=== PATIENT | female | born 1970 | race Caucasian/White ===

== ENCOUNTER 2017-08-25 00:06 | Emergency (ER) | payer OTHER ==
[2017-08-25] MEDS ORDERED: SODIUM CHLORIDE 0.9% 500 ML IV STA (00:41)
--- NOTE | 2017-08-25 00:46 | ED ---
Abdominal Pain HPI - General Chief Complaint: Abdominal Pain Stated Complaint: Abdominal Pain, Back Pain Time Seen by Provider: 08/25/17 00:22 Source: patient Mode of arrival: ambulatory Limitations: no limitations - History of Present Illness Initial Comments: 47-year-old female patient presents to emergency department today for complaints of lower abdominal pain and low back pain. Patient states that she has had this pain for the last day and a half. States it is worsened over the last 8 hours. Patient states that the pain was quite severe. Patient states that she thought it was gas that she did take Gas-X and Pepto-Bismol. States this has not helped her symptoms. She denies any nausea or vomiting with this. Denies any constipation, diarrhea, hematochezia, or melena. Denies any hematuria, dysuria, urinary frequency, urinary urgency. She denies any abnormal vaginal bleeding or discharge. Last period was 2 weeks ago. Patient denies any recent rash, fever, chills, shortness breath, chest pain, numbness, tingling, dizziness, weakness, headache, visual changes, or any other complaints. - Related Data Home Medications Medication Instructions Recorded Confirmed Escitalopram [Lexapro] 10 mg PO DAILY 08/25/17 08/25/17 Levothyroxine Sodium [Synthroid] 112 mcg PO DAILY 08/25/17 08/25/17 Previous Rx's Medication Instructions Recorded Hydrocodone/Acetaminophen [[place] 1 tab PO Q6HR PRN #12 tab 08/25/17 5-325] Ibuprofen [Motrin] 600 mg PO Q8HR PRN #30 tab 08/25/17 Allergies Allergy/AdvReac Type Severity Reaction Status Date / Time Penicillins Allergy Unknown Verified 08/25/17 00:14 Childhood Review of Systems ROS Statement: Those systems with pertinent positive or pertinent negative responses have been documented in the HPI. ROS Other: All systems not noted in ROS Statement are negative. Past Medical History Past Medical History: Thyroid Disorder History of Any Multi-Drug Resistant Organisms: None Reported Past Surgical History: No Surgical Hx Reported Past Psychological History: Depression Smoking Status: Current every day smoker Past Alcohol Use History: None Reported Past Drug Use History: None Reported General Exam Limitations: no limitations General appearance: alert, in no apparent distress, other (This is a well- developed, well-nourished adult female patient in no acute distress. Vital signs upon presentation are temperature 98.9F, pulse 88, respirations 20, blood pressure 131/72, pulse ox 99% on room air.) Eye exam: Present: normal appearance, PERRL, EOMI. Absent: scleral icterus, conjunctival injection, periorbital swelling ENT exam: Present: normal exam, normal oropharynx, mucous membranes moist Respiratory exam: Present: normal lung sounds bilaterally. Absent: respiratory distress, wheezes, rales, rhonchi, stridor Cardiovascular Exam: Present: regular rate, normal rhythm, normal heart sounds. Absent: systolic murmur, diastolic murmur, rubs, gallop, clicks GI/Abdominal exam: Present: soft, tenderness (Mild right lower quadrant tenderness), normal bowel sounds. Absent: distended, guarding, rebound, rigid Neurological exam: Present: alert, oriented X3, CN II-XII intact Psychiatric exam: Present: normal affect, normal mood Skin exam: Present: warm, dry, intact, normal color. Absent: rash Course Vital Signs 08/25/17 08/25/17 00:11 02:00 Temperature 98.9 F 98.1 F Pulse Rate 88 70 Respiratory 20 19 Rate Blood Pressure 131/72 143/67 O2 Sat by Pulse 99 98 Oximetry Medical Decision Making - Medical Decision Making 47-year-old male patient presented to the emergency department today for evaluation of lower abdominal pain or low back pain. Physical examination revealed some mild left-sided and right-sided abdominal tenderness. Labs reviewed and showed hemoglobin of 10. X-ray was obtained and showed no acute intra-abdominal process. CT of the abdomen and pelvis was obtained and did show a left uterine fibroid and a left ovarian cyst. Did discuss findings with the patient, did discuss these could be causing her pain. She is instructed to follow-up with [facility] for recheck of systems possible. Return parameters discussed in detail. She verbalizes understanding and agrees with this plan. - Lab Data Result diagrams: 08/25/17 00:56 08/25/17 00:56 Lab Results 08/25/17 08/25/17 08/25/17 Range/Units 00:20 00:20 00:56 WBC (3.8-10.6) k/uL RBC (3.80-5.40) m/uL Hgb (11.4-16.0) gm/dL Hct (34.0-46.0) % MCV (80.0-100.0) fL MCH (25.0-35.0) pg MCHC (31.0-37.0) g/dL RDW (11.5-15.5) % Plt Count (150-450) k/uL Neutrophils % % Lymphocytes % % Monocytes % % Eosinophils % % Basophils % % Neutrophils # (1.3-7.7) k/uL Lymphocytes # (1.0-4.8) k/uL Monocytes # (0-1.0) k/uL Eosinophils # (0-0.7) k/uL Basophils # (0-0.2) k/uL Hypochromasia Poikilocytosis Anisocytosis Microcytosis Sodium 143 (137-145) mmol/L Potassium 4.2 (3.5-5.1) mmol/L Chloride 108 H (98-107) mmol/L Carbon Dioxide 24 (22-30) mmol/L Anion Gap 11 mmol/L BUN 9 (7-17) mg/dL Creatinine 0.60 (0.52-1.04) mg/dL Est GFR (CKD-EPI)AfAm >90 (>60 ml/min/1.73 sqM) Est GFR (CKD-EPI)NonAf >90 (>60 ml/min/1.73 sqM) Glucose 100 H (74-99) mg/dL Calcium 9.5 (8.4-10.2) mg/dL Total Bilirubin 0.3 (0.2-1.3) mg/dL AST 16 (14-36) U/L ALT 9 (9-52) U/L Alkaline Phosphatase 73 (38-126) U/L Total Protein 6.7 (6.3-8.2) g/dL Albumin 4.0 (3.5-5.0) g/dL Amylase 50 (30-110) U/L Lipase 74 (23-300) U/L Urine Color Light Yellow Urine Appearance Clear (Clear) Urine pH 6.5 (5.0-8.0) Ur Specific [place] 1.012 (1.001-1.035) Urine Protein Negative (Negative) Urine Glucose (UA) Negative (Negative) Urine Ketones Negative (Negative) Urine Blood Negative (Negative) Urine Nitrite Negative (Negative) Urine Bilirubin Negative (Negative) Urine Urobilinogen <2.0 (<2.0) mg/dL Ur Leukocyte Esterase Negative (Negative) Urine HCG, Qual Not Detected (Not Detectd) 08/25/17 Range/Units 00:56 WBC 10.4 (3.8-10.6) k/uL RBC 5.00 (3.80-5.40) m/uL Hgb 10.0 L (11.4-16.0) gm/dL Hct 34.1 (34.0-46.0) % MCV 68.1 L (80.0-100.0) fL MCH 20.0 L (25.0-35.0) pg MCHC 29.4 L (31.0-37.0) g/dL RDW 17.8 H (11.5-15.5) % Plt Count 242 (150-450) k/uL Neutrophils % 69 % Lymphocytes % 21 % Monocytes % 7 % Eosinophils % 2 % Basophils % 1 % Neutrophils # 7.1 (1.3-7.7) k/uL Lymphocytes # 2.1 (1.0-4.8) k/uL Monocytes # 0.7 (0-1.0) k/uL Eosinophils # 0.2 (0-0.7) k/uL Basophils # 0.1 (0-0.2) k/uL Hypochromasia Marked Poikilocytosis Slight Anisocytosis Slight Microcytosis Marked Sodium (137-145) mmol/L Potassium (3.5-5.1) mmol/L Chloride (98-107) mmol/L Carbon Dioxide (22-30) mmol/L Anion Gap mmol/L BUN (7-17) mg/dL Creatinine (0.52-1.04) mg/dL Est GFR (CKD-EPI)AfAm (>60 ml/min/1.73 sqM) Est GFR (CKD-EPI)NonAf (>60 ml/min/1.73 sqM) Glucose (74-99) mg/dL Calcium (8.4-10.2) mg/dL Total Bilirubin (0.2-1.3) mg/dL AST (14-36) U/L ALT (9-52) U/L Alkaline Phosphatase (38-126) U/L Total Protein (6.3-8.2) g/dL Albumin (3.5-5.0) g/dL Amylase (30-110) U/L Lipase (23-300) U/L Urine Color Urine Appearance (Clear) Urine pH (5.0-8.0) Ur Specific Graham (1.001-1.035) Urine Protein (Negative) Urine Glucose (UA) (Negative) Urine Ketones (Negative) Urine Blood (Negative) Urine Nitrite (Negative) Urine Bilirubin (Negative) Urine Urobilinogen (<2.0) mg/dL Ur Leukocyte Esterase (Negative) Urine HCG, Qual (Not Detectd) - Radiology Data Radiology results: report reviewed, image reviewed Two-view x-ray of the abdomen shows bowel gas pattern is normal. There is no sign of intestinal obstruction or pneumoperitoneum. Fecal pattern is normal. There are no pathologic calcifications over the kidneys. Impression by Dr. Jones shows nonacute abdomen. CT abdomen and pelvis with contrast was obtained. Report was reviewed in its entirety. Impression by Dr. Jones shows enlarged uterus with exophytic left sided uterine fibroid. Left ovarian cyst. Disposition Clinical Impression: Abdominal pain, Uterine fibroid, Ovarian cyst Disposition: HOME SELF-CARE Condition: Good Instructions: Ovarian Cyst (ED), Uterine Fibroids (ED), Abdominal Pain (ED) Additional Instructions: Take medications as directed. Follow-up with [facility] as soon as possible for recheck. Return here immediately for any new, worsening, or concerning symptoms. Prescriptions: Hydrocodone/Acetaminophen [[place] 5-325] 1 tab PO Q6HR PRN #12 tab PRN Reason: Pain Ibuprofen [Motrin] 600 mg PO Q8HR PRN #30 tab PRN Reason: Pain Is patient prescribed a controlled substance at d/c from ED?: Yes If prescribed controlled substance>3 days was MAPS reviewed?: No When asked, does pt state using other controlled substances?: No Referrals: [facility],Clinic [Primary Care Provider] - 1-2 days Nickolas Lindsay MD [STAFF PHYSICIAN] - 1-2 days Time of Disposition: 03:05
[2017-08-25 01:15] LABS: Anisocytosis Slight; Basophils # (A) 0.1 k/uL (0-0.2); Basophils % (A) 1 %; Eosinophils # (A) 0.2 k/uL (0-0.7); Eosinophils % (A) 2 %; HCT 34.1 % (34.0-46.0); Hypochromasia Marked; Lymphocytes # (A) 2.1 k/uL (1.0-4.8); Lymphocytes % (A) 21 %; MCHC 29.4 g/dL (31.0-37.0); MCV 68.1 fL (80.0-100.0); Mean Platelet Volume 8.5; Microcytosis Marked; Monocytes # (A) 0.7 k/uL (0-1.0); Monocytes % (A) 7 %; Neutrophils # (A) 7.1 k/uL (1.3-7.7); Neutrophils % (A) 69 %; Platelet Count 242 k/uL (150-450); Poikilocytosis Slight; RDW 17.8 % (11.5-15.5); WBC 10.4 k/uL (3.8-10.6)
[2017-08-25 01:17] LABS: Appearance,Urine Clear (Clear); Bilirubin,Urine Negative (Negative); Blood,Urine Negative (Negative); Color,Urine Light Yellow; Glucose,Urine (UA) Negative (Negative); Ketones,Urine Negative (Negative); Leukocyte Esterase,Urine Negative (Negative); Nitrite,Urine Negative (Negative); PH, Urine 6.5 (5.0-8.0); Protein,Urine Negative (Negative); Specific Gravity,Urine 1.012 (1.001-1.035); Urobilinogen,Urine <2.0 mg/dL (<2.0)
[2017-08-25 01:26] LABS: ALT 9 U/L (9-52); AST 16 U/L (14-36); Alkaline Phosphatase 73 U/L (38-126); Amylase 50 U/L (30-110); Anion Gap 11 mmol/L; Blood Urea Nitrogen 9 mg/dL (7-17); Calcium 9.5 mg/dL (8.4-10.2); Carbon Dioxide 24 mmol/L (22-30); Chloride 108 mmol/L (98-107); Glucose 100 mg/dL (74-99); Lipase 74 U/L (23-300); Potassium 4.2 mmol/L (3.5-5.1); Sodium 143 mmol/L (137-145); Total Bilirubin 0.3 mg/dL (0.2-1.3); Total Protein 6.7 g/dL (6.3-8.2)
--- NOTE | 2017-08-25 01:40 | XR ---
EXAMINATION TYPE: XR KUB DATE OF EXAM: 08/25/2017 COMPARISON: NONE HISTORY: Abdominal pain TECHNIQUE: 2 views FINDINGS: Bowel gas pattern is normal. There is no sign of intestinal obstruction or pneumoperitoneum . Fecal pattern is normal. There are no pathologic calcifications over the kidneys. IMPRESSION: Nonacute abdomen.
[2017-08-25] MEDS ORDERED: RX INFO: IV CONTRAST WAS GIVEN 1 EACH MISC MISCELLANE PRN (01:49)
[2017-08-25 02:33] VITALS: BP 143/67; PULSE 70; RESP 19; TEMP 98.1
--- NOTE | 2017-08-25 02:40 | CT ---
EXAMINATION TYPE: CT abdomen pelvis w con DATE OF EXAM: 08/25/2017 COMPARISON: NONE HISTORY: Abdominal pain CT DLP: mGycm Automated exposure control for dose reduction was used. TECHNIQUE: Helical acquisition of images was performed from the lung bases through the pelvis. CONTRAST: The contrast was Isovue 100 mL. FINDINGS: Lung bases are clear. There is no pleural effusion. Heart size is top normal. There is no pericardial effusion. Liver spleen pancreas gallbladder appear normal. Bile ducts are not dilated. There is no adrenal mass . Kidneys show satisfactory contrast opacification. There is no hydronephrosis. Uterus is enlarged. T here is an apparent exophytic fibroid on the left side of the uterus. This measures 5 cm in diameter. There is a 4 cm cyst on the left ovary. There is no free fluid in the pelvis. Bladder distends katty hly. There is no retroperitoneal adenopathy. Normal appendix. No sign of acute abdomen and pelvis. Appendix appears normal. I see no intestinal wall thickening. There are no dilated loops. The bony st ructures are intact. IMPRESSION: ENLARGED UTERUS WITH EXOPHYTIC LEFT-SIDED UTERINE FIBROID. LEFT OVARIAN CYST.
== END 2017-08-25 03:29 | disposition home or self-care (01) ==
LOC: EC 00:06
DX: D25.9 Leiomyoma of uterus, unspecified (principal); N83.202 Unspecified ovarian cyst, left side; F17.200 Nicotine dependence, unspecified, uncomplicated; E07.9 Disorder of thyroid, unspecified; F32.9 Major depressive disorder, single episode, unspecified; Z79.899 Other long term (current) drug therapy; Z88.0 Allergy status to penicillin
CPT/HCPCS: 36415; 80053; 82150; 83690; 85025; 81003; 81025; 74018; 74177; 99284; Q9967

== ENCOUNTER 2017-08-25 20:34 | Emergency (ER) | payer OTHER ==
[2017-08-25 20:56] VITALS: RESP 18
[2017-08-25] MEDS ORDERED: HYDROcodone/APAP 7.5-325MG 1 EACH TAB PO ONE (21:43)
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
--- NOTE | 2017-08-26 00:29 | US ---
EXAM: US Pelvis Complete, Transabdominal CLINICAL HISTORY: ITS.REASON US Reason: Pain TECHNIQUE: Real-time transabdominal pelvic ultrasound (complete) with image documentation. COMPARISON: No relevant prior studies available. FINDINGS: Limited as patient refused transvaginal exam. Anteverted uterus measuring 14.2 x 9.3 x 9.8 cm. Uterus is enlarged and lobulated. 3 discrete heterogeneous intramural masses were identified in the uterine body consistent with leiomyomas. A leiomyoma in the anterior uterine body measures 6.2 x 4.1 x 4.9 cm. A leiomyoma in the posterior uterine body is 5.1 x 3.9 x 4.8 cm. A third intramural posterior body leiomyoma is 6.8 x 5.7 x 6.0 cm. The endometrial stripe is 3 mm in thickness with normal appearance. Right ovary was not visualized. Left ovary is 5.9 x 4.6 x 4.5 cm with normal appearance and normal vascularity by Doppler. IMPRESSION: Multilobulated enlarged uterus with multiple leiomyomas as described above. Right ovary was not visualized.
[2017-08-26] MEDS ORDERED: ACET/COD 300 MG/30 MG STARTER PACK 6 TAB BTL PO STA (00:41)
[2017-08-26 00:54] VITALS: BP 133/60; PULSE 83; TEMP 98.8
== END 2017-08-26 00:54 | disposition home or self-care (01) ==
LOC: EC 20:34
DX: D25.9 Leiomyoma of uterus, unspecified (principal); N83.202 Unspecified ovarian cyst, left side; E07.9 Disorder of thyroid, unspecified; F32.9 Major depressive disorder, single episode, unspecified; F17.200 Nicotine dependence, unspecified, uncomplicated; Z79.899 Other long term (current) drug therapy; Z88.0 Allergy status to penicillin
CPT/HCPCS: 76856; 93976; 99284

== ENCOUNTER 2017-09-09 09:00 | Inpatient (IN) | payer OTHER ==
[2017-09-09] MEDS ORDERED: SODIUM CHLORIDE 0.9% 1,000 ML IV STA ×2 (09:02)
[2017-09-09] MEDS ORDERED: SODIUM CHLORIDE 0.9% 500 ML IV STA (09:02)
[2017-09-09 09:42] LABS: ALT 24 U/L (9-52); AST 16 U/L (14-36); Albumin 3.4 g/dL (3.5-5.0); Alkaline Phosphatase 67 U/L (38-126); Anion Gap 11 mmol/L; Blood Urea Nitrogen 11 mg/dL (7-17); Calcium 8.7 mg/dL (8.4-10.2); Carbon Dioxide 21 mmol/L (22-30); Chloride 109 mmol/L (98-107); Glucose 132 mg/dL (74-99); Magnesium 1.7 mg/dL (1.6-2.3); Phosphorus 3.4 mg/dL (2.5-4.5); Potassium 3.8 mmol/L (3.5-5.1); Sodium 141 mmol/L (137-145); Total Bilirubin 0.7 mg/dL (0.2-1.3); Total Protein 5.8 g/dL (6.3-8.2)
[2017-09-09] MEDS ORDERED: RX INFO: IV CONTRAST WAS GIVEN 1 EACH MISC MISCELLANE PRN (09:43)
[2017-09-09] MEDS ORDERED: ACETAMINOPHEN IV (For NPO) 1,000 MG in EMPTY BAG 1 BAG IVPB ONE (09:45)
--- NOTE | 2017-09-09 09:49 | ED ---
General Adult HPI - General Chief complaint: Abdominal Pain Stated complaint: Abd Pain Time Seen by Provider: 09/09/17 09:01 Source: EMS, RN notes reviewed, old records reviewed Mode of arrival: EMS Limitations: no limitations - History of Present Illness Initial comments: This is a 39-year-old female the ER for evaluation. Patient was essay for evaluation regarding about pain severe abdominal pain and left-sided shoulder pain and right-sided shoulder pain 3 days ago. Patient does have recent diagnosis of uterine fibroids which were causing her also extreme pain. Patient states she is in severe pain is weak lightheaded and dizzy. Patient states she is on her period but not any heavier or more bleeding than normal. Patient just focused on how much pain - Related Data Home Medications Medication Instructions Recorded Confirmed Escitalopram [Lexapro] 10 mg PO DAILY 08/25/17 08/25/17 Levothyroxine Sodium [Synthroid] 112 mcg PO DAILY 08/25/17 08/25/17 Previous Rx's Medication Instructions Recorded Hydrocodone/Acetaminophen [[place] 1 tab PO Q6HR PRN #12 tab 08/25/17 5-325] Ibuprofen [Motrin] 600 mg PO Q8HR PRN #30 tab 08/25/17 Allergies Allergy/AdvReac Type Severity Reaction Status Date / Time Penicillins Allergy Unknown Verified 08/25/17 20:56 Childhood Review of Systems ROS Statement: Those systems with pertinent positive or pertinent negative responses have been documented in the HPI. ROS Other: All systems not noted in ROS Statement are negative. Past Medical History Past Medical History: Thyroid Disorder Additional Past Medical History / Comment(s): ovarian cyst and mass on uterus () History of Any Multi-Drug Resistant Organisms: None Reported Past Surgical History: No Surgical Hx Reported Past Psychological History: Depression Smoking Status: Current every day smoker Past Alcohol Use History: None Reported Past Drug Use History: None Reported General Exam Limitations: no limitations General appearance: alert, in no apparent distress Head exam: Present: atraumatic, normocephalic, normal inspection Eye exam: Present: normal appearance, PERRL, EOMI. Absent: scleral icterus, conjunctival injection, periorbital swelling ENT exam: Present: normal exam, mucous membranes moist Neck exam: Present: normal inspection. Absent: tenderness, meningismus, lymphadenopathy Respiratory exam: Present: normal lung sounds bilaterally. Absent: respiratory distress, wheezes, rales, rhonchi, stridor Cardiovascular Exam: Present: regular rate, normal rhythm, normal heart sounds. Absent: systolic murmur, diastolic murmur, rubs, gallop, clicks GI/Abdominal exam: Present: soft, normal bowel sounds. Absent: distended, tenderness, guarding, rebound, rigid Extremities exam: Present: normal inspection, full ROM, normal capillary refill. Absent: tenderness, pedal edema, joint swelling, calf tenderness Back exam: Present: normal inspection Neurological exam: Present: alert, oriented X3, CN II-XII intact Psychiatric exam: Present: normal affect, normal mood Skin exam: Present: warm, dry, intact, normal color. Absent: rash Course Vital Signs 09/09/17 09/09/17 09/09/17 09:04 09:15 09:35 Temperature 98.0 F Pulse Rate 86 84 73 Respiratory 18 18 16 Rate Blood Pressure 97/53 107/46 95/46 O2 Sat by Pulse 97 98 98 Oximetry - Reevaluation(s) Reevaluation #1: 09/09/17 09:48 Patient's blood pressure is low currently, cannot get pain meds currently. We' ll give her IV hydration Reevaluation #2: 09/09/17 11:35 Patient will be immediately transfused 2 units O- blood secondary to symptomatically acute bleed with anemia and hypotension Reevaluation #3: 09/09/17 11:35 Dr. Lopez for surgery is called to evaluate patient EKG Findings - EKG Comments: EKG Findings:: EKG shows normal sinus rhythm rate of 72, KS 140, QRS 78, QTC 424 Medical Decision Making - Medical Decision Making 39 female the ER for evaluation presents with abdominal pain, new onset severe abdominal pain, patient with CT findings of spontaneous chronic rupture, patient is transfused and will be admitted to the ICU for surgical evaluation - Lab Data Result diagrams: 09/09/17 09:20 09/09/17 09:20 Lab Results 09/09/17 09/09/17 09/09/17 Range/Units 09:20 09:20 09:20 WBC 17.0 H (3.8-10.6) k/uL RBC 4.17 (3.80-5.40) m/uL Hgb 8.5 L D (11.4-16.0) gm/dL Hct 29.1 L (34.0-46.0) % MCV 69.8 L (80.0-100.0) fL MCH 20.5 L (25.0-35.0) pg MCHC 29.3 L (31.0-37.0) g/dL RDW 18.0 H (11.5-15.5) % Plt Count 280 (150-450) k/uL Neutrophils % 90 % Lymphocytes % 4 % Monocytes % 4 % Eosinophils % 0 % Basophils % 0 % Neutrophils # 15.3 H (1.3-7.7) k/uL Lymphocytes # 0.7 L (1.0-4.8) k/uL Monocytes # 0.7 (0-1.0) k/uL Eosinophils # 0.1 (0-0.7) k/uL Basophils # 0.0 (0-0.2) k/uL Hypochromasia Marked Poikilocytosis Slight Anisocytosis Slight Microcytosis Marked PT (9.0-12.0) sec INR (<1.2) APTT (22.0-30.0) sec Sodium 141 (137-145) mmol/L Potassium 3.8 (3.5-5.1) mmol/L Chloride 109 H (98-107) mmol/L Carbon Dioxide 21 L (22-30) mmol/L Anion Gap 11 mmol/L BUN 11 (7-17) mg/dL Creatinine 0.65 (0.52-1.04) mg/dL Est GFR (CKD-EPI)AfAm >90 (>60 ml/min/1.73 sqM) Est GFR (CKD-EPI)NonAf >90 (>60 ml/min/1.73 sqM) Glucose 132 H (74-99) mg/dL Plasma Lactic Acid Tanner (0.7-2.0) mmol/L Calcium 8.7 (8.4-10.2) mg/dL Phosphorus 3.4 (2.5-4.5) mg/dL Magnesium 1.7 (1.6-2.3) mg/dL Total Bilirubin 0.7 (0.2-1.3) mg/dL AST 16 (14-36) U/L ALT 24 (9-52) U/L Alkaline Phosphatase 67 (38-126) U/L Total Creatine Kinase 29 L (30-135) U/L CK-MB (CK-2) <0.2 (0.0-2.4) ng/mL CK-MB (CK-2) Rel Index Troponin I <0.012 (0.000-0.034) ng/mL Total Protein 5.8 L (6.3-8.2) g/dL Albumin 3.4 L (3.5-5.0) g/dL 09/09/17 09/09/17 Range/Units 09:20 09:20 WBC (3.8-10.6) k/uL RBC (3.80-5.40) m/uL Hgb (11.4-16.0) gm/dL Hct (34.0-46.0) % MCV (80.0-100.0) fL MCH (25.0-35.0) pg MCHC (31.0-37.0) g/dL RDW (11.5-15.5) % Plt Count (150-450) k/uL Neutrophils % % Lymphocytes % % Monocytes % % Eosinophils % % Basophils % % Neutrophils # (1.3-7.7) k/uL Lymphocytes # (1.0-4.8) k/uL Monocytes # (0-1.0) k/uL Eosinophils # (0-0.7) k/uL Basophils # (0-0.2) k/uL Hypochromasia Poikilocytosis Anisocytosis Microcytosis PT 10.6 (9.0-12.0) sec INR 1.1 (<1.2) APTT 23.0 (22.0-30.0) sec Sodium (137-145) mmol/L Potassium (3.5-5.1) mmol/L Chloride (98-107) mmol/L Carbon Dioxide (22-30) mmol/L Anion Gap mmol/L BUN (7-17) mg/dL Creatinine (0.52-1.04) mg/dL Est GFR (CKD-EPI)AfAm (>60 ml/min/1.73 sqM) Est GFR (CKD-EPI)NonAf (>60 ml/min/1.73 sqM) Glucose (74-99) mg/dL Plasma Lactic Acid Tanner 1.2 (0.7-2.0) mmol/L Calcium (8.4-10.2) mg/dL Phosphorus (2.5-4.5) mg/dL Magnesium (1.6-2.3) mg/dL Total Bilirubin (0.2-1.3) mg/dL AST (14-36) U/L ALT (9-52) U/L Alkaline Phosphatase (38-126) U/L Total Creatine Kinase (30-135) U/L CK-MB (CK-2) (0.0-2.4) ng/mL CK-MB (CK-2) Rel Index Troponin I (0.000-0.034) ng/mL Total Protein (6.3-8.2) g/dL Albumin (3.5-5.0) g/dL - Radiology Data Radiology results: report reviewed (CT chest CT abdomen and pelvis negative for acute disease), image reviewed Critical Care Time Critical Care Time: Yes Total Critical Care Time: 31 Disposition Clinical Impression: Splenic rupture, Anemia Disposition: ADMITTED IP TO THIS [facility] Condition: Serious Referrals: Benjamin Carrasquillo DO [Primary Care Provider] - 1-2 days
[2017-09-09 09:53] LABS: Anisocytosis Slight; Basophils % (A) 0 %; Eosinophils # (A) 0.1 k/uL (0-0.7); Eosinophils % (A) 0 %; HCT 29.1 % (34.0-46.0); Hypochromasia Marked; Lymphocytes # (A) 0.7 k/uL (1.0-4.8); Lymphocytes % (A) 4 %; MCH 20.5 pg (25.0-35.0); MCHC 29.3 g/dL (31.0-37.0); MCV 69.8 fL (80.0-100.0); Mean Platelet Volume 8.7; Microcytosis Marked; Monocytes # (A) 0.7 k/uL (0-1.0); Monocytes % (A) 4 %; Neutrophils # (A) 15.3 k/uL (1.3-7.7); Neutrophils % (A) 90 %; Platelet Count 280 k/uL (150-450); Poikilocytosis Slight; RBC 4.17 m/uL (3.80-5.40)
[2017-09-09 09:55] LABS: Creatine Kinase 29 U/L (30-135)
[2017-09-09 09:56] LABS: INR 1.1 (<1.2); Prothrombin Time 10.6 sec (9.0-12.0)
[2017-09-09 09:57] LABS: HGB 8.5 gm/dL (11.4-16.0)
[2017-09-09 10:08] LABS: Creatine Kinase MB <0.2 ng/mL (0.0-2.4); Troponin I <0.012 ng/mL (0.000-0.034)
--- NOTE | 2017-09-09 11:02 | CT ---
EXAMINATION TYPE: CT angio chest DATE OF EXAM: 09/09/2017 COMPARISON: NONE HISTORY: Entire left side torso pain CT DLP: 382.70 mGycm Automated exposure control for dose reduction was used. CONTRAST: CTA scan of the thorax is performed with IV Contrast, patient injected with 100 mL of Isovue 370, pul monary embolism protocol. MIP images are created and reviewed. 3D reconstructed images are created on an independent workstation and reviewed. FINDINGS: LUNGS: The lungs are remarkable for nodular appearing densities at the posterior costophrenic angle o n the right, some associated groundglass opacity, air bronchograms There is no pleural effusion or pn eumothorax seen. The tracheobronchial tree is patent. AORTA: No additional significant abnormality is seen. Pulmonary artery is dilated at 3.3 cm. MEDIASTINUM: There is satisfactory enhancement of the pulmonary artery and its branches, there is no CT evidence for pulmonary embolism. There are enlarged nodes in the retrocaval pretracheal mediastin um, right hilar region. No pericardial effusion is seen. The heart is enlarged. OTHER: There is ascites present. Suspect the liver is enlarged and shows low attenuation possibly du e to hepatic steatosis. There is a spinal curvature hasn't. IMPRESSION: NO EVIDENT PULMONARY EMBOLISM. CORRELATE FOR POSSIBLE PULMONARY ARTERIAL HYPERTENSION. THERE MAY BE R IGHT LOWER LOBE PNEUMONIA, FOLLOW-UP IS RECOMMENDED TO EXCLUDE SOFT TISSUE MASSES. CARDIOMEGALY. MEDI ASTINAL AND RIGHT HILAR ADENOPATHY. ASCITES.
--- NOTE | 2017-09-09 11:11 | CT ---
EXAMINATION TYPE: CT abdomen pelvis w con DATE OF EXAM: 09/09/2017 COMPARISON: CTA same date, CT abdomen pelvis 08/25/2017 HISTORY: Patient having left sided pain, entire side of body CT DLP: 1771.90 mGycm Automated exposure control for dose reduction was used. TECHNIQUE: Helical acquisition of images from the lung bases through the pelvis have been completed. CONTRAST: Performed without Oral Contrast and with IV Contrast, patient injected with 100 mL of Isovue 370. FINDINGS: LUNG BASES: Nodular densities of the lung bases not seen on prior exam and likely are inflammatory, c orrelate for pneumonia. AORTA: No significant abnormality is appreciated. LIVER/GB: Liver shows low attenuation likely due to hepatic steatosis, gallbladder is normal. PANCREAS: No significant abnormality is seen. SPLEEN: There is high attenuation present around the spleen, spleen shows abnormal low attenuation in its anterior aspect with some local mass effect inferiorly. ADRENALS: No significant abnormality is seen. KIDNEYS: No significant abnormality is seen. REPRODUCTIVE ORGANS: No significant change, the uterus is bulky and heterogeneous in density possibly due to fibroids BOWEL: No significant abnormality is seen. FREE AIR: No Free Air visible. ASCITES: Some fluid also noted around the liver, free fluid is in the pelvis.. PELVIC ADENOPATHY: None visualized. RETROPERITONEAL ADENOPATHY: No Retroperitoneal Adenopathy visible. URINARY BLADDER: No significant abnormality is seen. OSSEOUS STRUCTURES: No significant abnormality is seen. IMPRESSION: SPLENIC RUPTURE WITH. SPLENIC HEMATOMA, report relayed telephonically at the time of interpretation a t exam to the ER physician. Additional findings above.
--- NOTE | 2017-09-09 12:13 | P.GSHP ---
History of Present Illness H&P Date: 09/09/17 39-year-old female presents to the emergency department complaining of 3 days of abdominal pain. She states that the pain began in her right upper quadrant and then migrated to her left upper quadrant left shoulder and left back. She states that the pain has been increasing in intensity over the past 3 days. She complains of some lightheadedness. She denies any nausea and vomiting. She denies any change in bowel function. She states that she has not been involved in any recent trauma. She denies any falls. She denies any motor vehicle collision's. On workup in the emergency department, a CT of the abdomen and pelvis was performed. This illustrated a splenic rupture. This appears to be spontaneous based on the patient's history. In the emergency department she did reach a systolic blood pressure of 58/49. Resuscitation was begun with IV fluids and packed red blood cells. She had a transient response with a systolic in the 90s and then dropped back into a systolic of 70s. Continued resuscitation is ongoing. The patient is alert and answering questions appropriately. is at bedside. - Review of Systems All systems: negative Past Medical History Past Medical History: Thyroid Disorder Additional Past Medical History / Comment(s): ovarian cyst and mass on uterus () History of Any Multi-Drug Resistant Organisms: None Reported Past Surgical History: No Surgical Hx Reported Past Psychological History: Depression Smoking Status: Current every day smoker Past Alcohol Use History: None Reported Past Drug Use History: None Reported Medications and Allergies Home Medications Medication Instructions Recorded Confirmed Type Escitalopram [Lexapro] 10 mg PO DAILY 08/25/17 08/25/17 History Hydrocodone/Acetaminophen [[place] 1 tab PO Q6HR PRN #12 tab 08/25/17 Rx 5-325] Ibuprofen [Motrin] 600 mg PO Q8HR PRN #30 tab 08/25/17 Rx Levothyroxine Sodium [Synthroid] 112 mcg PO DAILY 08/25/17 08/25/17 History Allergies Allergy/AdvReac Type Severity Reaction Status Date / Time Penicillins Allergy Unknown Verified 08/25/17 20:56 Childhood Surgical - Exam Osteopathic Statement: *. No significant issues noted on an osteopathic structural exam other than those noted in the History and Physical/Consult. Vital Signs Temp Pulse Resp BP Pulse Ox 98.0 F 86 18 97/53 97 09/09/17 09:04 09/09/17 09:04 09/09/17 09:04 09/09/17 09:04 09/09/17 09:04 - General well nourished, moderate distress - ENT normal mucosa, no hearing loss - Neck trachea midline - Respiratory No difficulty with respiration - Abdomen Soft, tenderness specifically in the left upper quadrant and left flank, mild distention, rebound tenderness, no guarding - Neurologic normal sensation - Psychiatric oriented to time, oriented to person, oriented to place, speech is normal Results - Labs 09/09/17 09:20 09/09/17 09:20 Abnormal Lab Results - Last 24 Hours (Table) 09/09/17 09/09/17 09/09/17 Range/Units 09:20 09:20 09:20 WBC 17.0 H (3.8-10.6) k/uL Hgb 8.5 L D (11.4-16.0) gm/dL Hct 29.1 L (34.0-46.0) % MCV 69.8 L (80.0-100.0) fL MCH 20.5 L (25.0-35.0) pg MCHC 29.3 L (31.0-37.0) g/dL RDW 18.0 H (11.5-15.5) % Neutrophils # 15.3 H (1.3-7.7) k/uL Lymphocytes # 0.7 L (1.0-4.8) k/uL Chloride 109 H (98-107) mmol/L Carbon Dioxide 21 L (22-30) mmol/L Glucose 132 H (74-99) mg/dL Total Creatine Kinase 29 L (30-135) U/L Total Protein 5.8 L (6.3-8.2) g/dL Albumin 3.4 L (3.5-5.0) g/dL Diabetes panel 09/09/17 Range/Units 09:20 Sodium 141 (137-145) mmol/L Potassium 3.8 (3.5-5.1) mmol/L Chloride 109 H (98-107) mmol/L Carbon Dioxide 21 L (22-30) mmol/L BUN 11 (7-17) mg/dL Creatinine 0.65 (0.52-1.04) mg/dL Glucose 132 H (74-99) mg/dL Calcium 8.7 (8.4-10.2) mg/dL AST 16 (14-36) U/L ALT 24 (9-52) U/L Alkaline Phosphatase 67 (38-126) U/L Total Protein 5.8 L (6.3-8.2) g/dL Albumin 3.4 L (3.5-5.0) g/dL Calcium panel 09/09/17 Range/Units 09:20 Calcium 8.7 (8.4-10.2) mg/dL Phosphorus 3.4 (2.5-4.5) mg/dL Albumin 3.4 L (3.5-5.0) g/dL Pituitary panel 09/09/17 Range/Units 09:20 Sodium 141 (137-145) mmol/L Potassium 3.8 (3.5-5.1) mmol/L Chloride 109 H (98-107) mmol/L Carbon Dioxide 21 L (22-30) mmol/L BUN 11 (7-17) mg/dL Creatinine 0.65 (0.52-1.04) mg/dL Glucose 132 H (74-99) mg/dL Calcium 8.7 (8.4-10.2) mg/dL Adrenal panel 09/09/17 Range/Units 09:20 Sodium 141 (137-145) mmol/L Potassium 3.8 (3.5-5.1) mmol/L Chloride 109 H (98-107) mmol/L Carbon Dioxide 21 L (22-30) mmol/L BUN 11 (7-17) mg/dL Creatinine 0.65 (0.52-1.04) mg/dL Glucose 132 H (74-99) mg/dL Calcium 8.7 (8.4-10.2) mg/dL Total Bilirubin 0.7 (0.2-1.3) mg/dL AST 16 (14-36) U/L ALT 24 (9-52) U/L Alkaline Phosphatase 67 (38-126) U/L Total Protein 5.8 L (6.3-8.2) g/dL Albumin 3.4 L (3.5-5.0) g/dL - Imaging CT scan - abdomen: report reviewed, image reviewed CT scan - pelvis: report reviewed, image reviewed (CT of the abdomen and pelvis was reviewed, there is noted splenic rupture with hemoperitoneum, there is no obvious pneumoperitoneum) Assessment and Plan (1) Splenic rupture Narrative/Plan: 47-year-old female with spontaneous splenic rupture - Patient has only had transient response to IV fluid and packed red blood cell resuscitation - With continued hypotension, plan for urgent expiratory laparotomy and splenectomy - Continue with resuscitation - Plan for ICU admission after surgery - Further recommendations after surgery Current Visit: Yes Status: Acute Code(s): S36.09XA - OTHER INJURY OF SPLEEN , INITIAL ENCOUNTER SNOMED Code(s): 475534852
[2017-09-09] MEDS ORDERED: fentaNYL (PF) 50 MCG/ML 2 ML AMP ONE (12:39)
[2017-09-09] MEDS ORDERED: LIDOCAINE 1% INJ 10MG/ML (20 ML MDV) ONE (12:39)
[2017-09-09] MEDS ORDERED: IV FLUID CONTINUATION 1,000 ML IV ONE (12:39)
[2017-09-09] MEDS ORDERED: PROPOFOL 10 MG/ML 20 ML VIAL IV ONE (12:39)
[2017-09-09] MEDS ORDERED: GLYCOPYRROLATE 0.2 MG/ML 2 ML VIAL ONE (12:39)
[2017-09-09] MEDS ORDERED: NEOSTIGMINE 1 MG/ML 10 ML VIAL ONE (12:39)
[2017-09-09] MEDS ORDERED: MIDAZOLAM 2 MG/2 ML VIAL ONE (12:39)
[2017-09-09] MEDS ORDERED: PHENYLEPHRINE-0.9% NACL SYG 1 MG/10 ML SYRINGE ONE (12:39)
[2017-09-09] MEDS ORDERED: ONDANSETRON 4 MG/2 ML VIAL ONE (12:39)
[2017-09-09] MEDS ORDERED: SUCCINYLCHOLINE CHLORIDE 100 MG/5 ML SYR IV ONE (12:39)
[2017-09-09] MEDS ORDERED: ROCURONIUM BROMIDE 10 MG/ML 10 ML VIAL IV ONE (12:39)
[2017-09-09] MEDS ORDERED: SODIUM CHLORIDE 0.9% 50 ML with ceFAZolin 2,000 MG IV ONE ×2 (13:00)
[2017-09-09] MEDS ORDERED: LACTATED RINGERS 1,000 ML IV ONE (13:19)
--- NOTE | 2017-09-09 14:07 | P.OP ---
Date of Procedure: 09/09/17 Preoperative Diagnosis: Spontaneous splenic rupture Postoperative Diagnosis: Spontaneous splenic rupture Procedure(s) Performed: Exploratory laparotomy, splenectomy Anesthesia: EMRE Surgeon: Cecelia Lopez Electrical Wiring Lineman #1: Ana Luisa Baltazar Estimated Blood Loss (ml): 20 Pathology: other (Spleen) Condition: critical Disposition: ICU Indications for Procedure: 47-year-old female presented to the emergency department with abdominal pain that had been present for approximately 2 days. On presentation, she was found to be diaphoretic and hypotensive. On workup she was found to have a ruptured spleen. She did not respond appropriately with IV fluid resuscitation and packed red blood cell resuscitation. Secondary to this, splenectomy was decided upon. The patient was excellent the risks, benefits and alternatives to the procedure provided consent prior to attending the operating suite. Operative Findings: Ruptured spleen 1.5 L of hemoperitoneum Description of Procedure: The patient was brought into the operating suite and placed in supine position on the operating table. Sedation was provided by anesthesia and the patient underwent endotracheal intubation. A Bolaños catheter was placed. The patient was prepped and draped in regular sterile fashion. A supraumbilical midline vertical incision was made dissection was carried to the fascia the fascia was incised. The peritoneum was then incised with immediate expulsion of blood. The peritoneum was incised along the length of the incision. Suction was then placed within the abdomen to clear the hemoperitoneum. Multiple large clots were also removed from the abdomen. The left upper quadrant was examined. The splenic hilum was palpated and clamped using a pinching technique. A 60 mm 10 load stapler was fired across the splenic hilum. The spleen was then removed from the abdomen. The spleen was noted to have a large laceration. Further suction was used in all 4 quadrants of the abdomen to clear out the remaining hemoperitoneum. All 4 quadrants were examined with no additional source of bleeding. Copious amounts of irrigation was also used within the abdomen. No additional bleeding was noted. Hemostasis was maintained. A DION drain was placed in the left upper quadrant. This was sutured into place with a 2-0 nylon suture. The midline fascia was then closed in a running fashion using 0 PDS suture. Skin incision was then closed using skin jolie. Sterile dressing was applied. The patient was taken to the postanesthesia care unit in critical condition.
[2017-09-09] MEDS ORDERED: NALOXONE 0.4 MG/ML 1 ML VIAL IV PRN (14:23)
[2017-09-09] MEDS: HYDROmorphone 0.5 MG/0.5 ML SYRINGE IVP ONE ×2 (14:31→14:40)
[2017-09-09 15:14] LABS: Anisocytosis Slight; HCT 28.4 % (34.0-46.0); HGB 8.5 gm/dL (11.4-16.0); Hypochromasia Marked; MCH 22.5 pg (25.0-35.0); MCHC 29.9 g/dL (31.0-37.0); Mean Platelet Volume 7.6; Microcytosis Moderate; Platelet Count 189 k/uL (150-450); Poikilocytosis Moderate; RBC 3.77 m/uL (3.80-5.40); RDW 18.9 % (11.5-15.5); WBC 19.9 k/uL (3.8-10.6)
[2017-09-09 15:15] LABS: MCV 75.3 fL (80.0-100.0)
[2017-09-09 15:26] LABS: Glucose,Whole Blood 175 mg/dL (75-99)
--- NOTE | 2017-09-09 15:46 | P.CNPUL ---
History of Present Illness Consult date: 09/09/17 Requesting physician: Cecelia Lopez Reason for consult: other (ICU management, patient is status post splenectomy.) Chief complaint: Abdominal pain History of present illness: This is a 47-year-old female with history of hypothyroidism, no previous history of underlying malignancy, no history of multiple myeloma, no history of recent viral infection, patient presented to the ER with 3 days history of abdominal pain. Pain started initially in the right upper quadrant, then migrated to the left upper quadrant, left shoulder, and left back. Pain has been increasing in severity over the last 3 days. Patient was also complaining of lightheadedness, no nausea, no vomiting, no melena, no hematemesis, and no recent history of trauma. Patient had a CT of the abdomen and pelvis performed in the ER, and it clearly showed a spontaneous splenic rupture. While in the ER , patient was noted to be hypotensive, resuscitated with fluid boluses and packed RBCs, patient was seen by surgery on consultation, taken to the or, underwent splenectomy, transferred back to the ICU hemodynamically stable, and in no distress. Patient was extubated uneventfully in the recovery room, and she is now on nasal cannula. Denies any specific complaints. Patient had only abdominal pain as noted in the HPI. Review of Systems 12 point review of systems were obtained, please refer to pertinent positives and negatives in HPI. Past Medical History Past Medical History: Thyroid Disorder Additional Past Medical History / Comment(s): ovarian cyst and mass on uterus () History of Any Multi-Drug Resistant Organisms: None Reported Past Surgical History: No Surgical Hx Reported Past Psychological History: Depression Smoking Status: Current every day smoker Past Alcohol Use History: None Reported Past Drug Use History: None Reported Medications and Allergies Home Medications Medication Instructions Recorded Confirmed Type Escitalopram [Lexapro] 10 mg PO DAILY 08/25/17 08/25/17 History Hydrocodone/Acetaminophen [[place] 1 tab PO Q6HR PRN #12 tab 08/25/17 Rx 5-325] Ibuprofen [Motrin] 600 mg PO Q8HR PRN #30 tab 08/25/17 Rx Levothyroxine Sodium [Synthroid] 112 mcg PO DAILY 08/25/17 08/25/17 History Allergies Allergy/AdvReac Type Severity Reaction Status Date / Time Penicillins Allergy Unknown Verified 05/05/18 20:56 Childhood Physical Exam Vitals: Vital Signs Temp Pulse Pulse Resp BP BP Pulse Ox 09/09/17 15:10 62 18 97/50 99 18 15:00 63 18 95/50 98 09/09/17 14:49 59 L 18 98/50 99 09/09/17 14:44 63 18 94/50 99 09/09/17 14:39 62 18 92/53 99 09/09/17 14:34 62 18 88/44 99 09/09/17 14:29 63 18 88/49 99 09/09/17 14:24 62 18 89/49 99 09/09/17 14:19 64 18 93/39 99 09/09/17 14:13 62 18 99/49 99 09/09/17 14:08 61 18 98/41 100 09/09/17 14:03 63 18 93/40 99 09/09/17 13:58 69 18 101/50 99 09/09/17 13:53 96.8 F L 94 18 128/57 99 09/09/17 12:21 98.2 F 76 18 120/52 100 18 12:11 97.8 F 68 20 94/55 100 09/09/17 12:01 98.6 F 68 20 78/44 100 18 11:57 69 20 85/52 100 18 11:55 98.8 F 71 18 90/49 2018 11:52 98.4 F 71 18 70/45 052018 11:47 67 18 82/41 052018 11:42 97.9 F 71 18 58/49 97 18 11:38 97.5 F L 67 18 105/72 96 2018 11:34 98.2 F 67 18 59/34 96 20/18 10:40 75 16 101/40 98 18 09:35 73 16 95/46 98 18 09:15 84 18 107/46 98 18 09:04 98.0 F 86 18 97/53 97 Intake and Output 09/09/17 05/18 0518 06:59 14:59 22:59 Intake Total 1570 Output Total 260 100 Balance 1310 -100 Intake: IV 950 Blood Product 620 Rc As-1 Unit 310 [id number] Rc Pheresis 2 As3 Unit 310 [id number] Output: Urine 240 100 Estimated Blood Loss 20 Other: Weight 97.522 kg Physical Exam: Revealed a 47-year-old female in no distress. Head: Atraumatic, normocephalic. HEENT: PERRLA, EOMI, [Neck is supple.] [No neck masses.] [No thyromegaly.] [No JVD.], Dry mucous membranes. Chest: [Diminished breath sounds at the bases, no crackles or rhonchi or wheezes..] Cardiac Exam: [Normal S1 and S2, no S3 gallop, no murmur.] Abdomen: [Soft, slightly tender. Sterile dressing noted over the incision., no megaly, diminished bowel sounds noted. Extremities: [No clubbing, no edema, no cyanosis.] Neurological Exam: [No focal neurologic deficit.] Lymphatics: No lymphadenopathy. Results - Laboratory Findings CBC and BMP: 09/09/17 15:00 09/09/17 09:20 PT/INR, D-dimer PT 10.6 sec (9.0-12.0) 09/09/17 09:20 INR 1.1 (<1.2) 09/09/17 09:20 Abnormal lab findings: Abnormal Labs 09/09/17 09/09/17 09/09/17 09:20 09:20 09:20 WBC 17.0 H RBC Hgb 8.5 L D Hct 29.1 L MCV 69.8 L MCH 20.5 L MCHC 29.3 L RDW 18.0 H Neutrophils # 15.3 H Lymphocytes # 0.7 L Chloride 109 H Carbon Dioxide 21 L Glucose 132 H POC Glucose (mg/dL) Total Creatine Kinase 29 L Total Protein 5.8 L Albumin 3.4 L Crossmatch 09/09/17 09/09/17 09/09/17 11:35 15:00 15:23 WBC 19.9 H RBC 3.77 L Hgb 8.5 L Hct 28.4 L MCV 75.3 L D MCH 22.5 L MCHC 29.9 L RDW 18.9 H Neutrophils # Lymphocytes # Chloride Carbon Dioxide Glucose POC Glucose (mg/dL) 175 H Total Creatine Kinase Total Protein Albumin Crossmatch See Detail - Diagnostic Findings Additional studies: CT of the abdomen and pelvis was reviewed, and I agree with reading as per radiology. Assessment and Plan Assessment: Impression: 1 acute spontaneous splenic rupture, status post expiratory laparotomy and splenectomy postoperative day #0. 2 acute hypotension upon initial presentation secondary to splenic rupture. And secondary to acute blood loss. 3 acute blood loss secondary to splenic rupture, requiring 2 units of packed RBCs since admission. 4 history of hypothyroidism, on replacement therapy. Recommendation: We'll continue to monitor in the ICU, continue IV fluids, incentive spirometry, GI prophylaxis, no clear-cut evidence at this point for the cause of her splenic rupture based on the final pathology report on the spleen, we may have more information whether the patient has underlying malignancy or underlying infection. At this point it is not clear. However the possibility of underlying pathological condition is not entirely ruled out at this point. We'll continue to follow. Time with Patient: Greater than 30
[2017-09-09] MEDS ORDERED: IPRATROPIUM-ALBUTEROL 3 ML NEB INHALATION PRN (15:47)
[2017-09-09] MEDS: LACTATED RINGERS 1,000 ML IV SCH ×2 (15:54→23:24)
[2017-09-09] MEDS: HYDROmorphone 0.5 MG/0.5 ML SYRINGE IVP PRN ×3 (17:05→23:15)
[2017-09-09] MEDS: HEPARIN SODIUM,PORCINE 5,000 UNIT/ML 1 ML VIAL SQ SCH (18:09)
[2017-09-09 20:52] LABS: Anisocytosis Slight; HGB 7.9 gm/dL (11.4-16.0); Hypochromasia Marked; MCH 22.6 pg (25.0-35.0); MCHC 30.3 g/dL (31.0-37.0); MCV 74.4 fL (80.0-100.0); Microcytosis Moderate; Platelet Count 196 k/uL (150-450); Poikilocytosis Moderate; RBC 3.49 m/uL (3.80-5.40); RDW 19.1 % (11.5-15.5)
[2017-09-09 23:47] LABS: Appearance,Urine Clear (Clear); Bacteria,Urine Occasional /hpf; Bilirubin,Urine Negative (Negative); Blood,Urine Small (Negative); Color,Urine Yellow; Glucose,Urine (UA) Negative (Negative); Hyaline Casts,Urine 11 /lpf (0-2); Ketones,Urine Negative (Negative); Leukocyte Esterase,Urine Moderate (Negative); Mucus,Urine Few /hpf; Nitrite,Urine Negative (Negative); PH, Urine 5.5 (5.0-8.0); Protein,Urine 1+ (Negative); RBC,Urine 23 /hpf (0-5); Specific Gravity,Urine 1.036 (1.001-1.035); Squamous Epithelial Cell,Urine <1 /hpf (0-4); Urobilinogen,Urine <2.0 mg/dL (<2.0); WBC,Urine 27 /hpf (0-5)
[2017-09-10] MEDS: HEPARIN SODIUM,PORCINE 5,000 UNIT/ML 1 ML VIAL SQ SCH ×3 (00:12→17:13)
[2017-09-10] MEDS: HYDROmorphone 0.5 MG/0.5 ML SYRINGE IVP PRN ×4 (02:04→11:06)
[2017-09-10 05:09] LABS: Anisocytosis Slight; Basophils % (A) 0 %; Eosinophils % (A) 0 %; HCT 24.6 % (34.0-46.0); HGB 7.4 gm/dL (11.4-16.0); Hypochromasia Marked; Lymphocytes # (A) 1.3 k/uL (1.0-4.8); Lymphocytes % (A) 8 %; MCH 22.2 pg (25.0-35.0); MCV 74.2 fL (80.0-100.0); Mean Platelet Volume 9.6; Microcytosis Moderate; Monocytes # (A) 1.1 k/uL (0-1.0); Monocytes % (A) 7 %; Neutrophils # (A) 12.8 k/uL (1.3-7.7); Neutrophils % (A) 82 %; Platelet Count 232 k/uL (150-450); Poikilocytosis Moderate; RBC 3.32 m/uL (3.80-5.40); WBC 15.5 k/uL (3.8-10.6)
[2017-09-10 05:37] LABS: Anion Gap 11 mmol/L; Blood Urea Nitrogen 17 mg/dL (7-17); Calcium 8.3 mg/dL (8.4-10.2); Carbon Dioxide 23 mmol/L (22-30); Chloride 108 mmol/L (98-107); Glucose 101 mg/dL (74-99); Magnesium 1.8 mg/dL (1.6-2.3); Phosphorus 3.9 mg/dL (2.5-4.5); Potassium 4.4 mmol/L (3.5-5.1); Sodium 142 mmol/L (137-145)
[2017-09-10] MEDS: LACTATED RINGERS 1,000 ML IV SCH ×2 (07:08→17:14)
--- NOTE | 2017-09-10 08:01 | P.PN ---
Subjective Progress Note Date: 09/10/17 Patient seen and examined at bedside. Complains of pain at the surgical site and in her left shoulder. Complains of mild nausea. Denies any emesis episodes. Tolerating clear liquid diet. Bolaños catheter is in place. Objective - Vital Signs Vital signs: Vital Signs Temp 99.1 F 09/10/17 07:00 Pulse 83 09/10/17 07:00 Resp 25 H 09/10/17 07:00 BP 127/57 09/10/17 07:00 Pulse Ox 92 L 09/10/17 07:00 Intake & Output 09/09/17 09/10/17 09/10/17 18:59 06:59 18:59 Intake Total 2070 1405 125 Output Total 660 380 55 Balance 1410 1025 70 Weight 98 kg 101.8 kg Intake: IV 950 1375 125 Lactated Ringers 1,000 ml 1375 125 @ 125 mls/hr IV .Q8H MONIQUE Rx#:[id number] Intake, IV Titration 500 Amount Lactated Ringers 1,000 ml 500 @ 125 mls/hr IV .Q8H MONIQUE Rx#:[id number] Oral 30 Blood Product 620 Rc As-1 Unit 310 [id number] Rc Pheresis 2 As3 Unit 310 [id number] Output: Drainage 25 Abdomen 25 Urine 620 380 30 Estimated Blood Loss 20 Other 20 Other: Voiding Method Indwelling Catheter - Constitutional General appearance: Present: cooperative - EENT Eyes: Present: PERRLA ENT: Present: hearing grossly normal - Respiratory Details: No difficulty with respiration - Gastrointestinal Gastrointestinal Comment(s): Soft, appropriate tenderness, mild distention, no rebound, no guarding, DION drain in place with serosanguineous output - Musculoskeletal Musculoskeletal: Present: generalized weakness - Psychiatric Psychiatric: Present: A&O x's 3 - Labs CBC & Chem 7: 09/10/17 04:02 09/10/17 04:02 Labs: Abnormal Lab Results - Last 24 Hours (Table) 09/09/17 09/09/17 09/09/17 Range/Units 09:20 09:20 09:20 WBC 17.0 H (3.8-10.6) k/uL RBC (3.80-5.40) m/uL Hgb 8.5 L D (11.4-16.0) gm/dL Hct 29.1 L (34.0-46.0) % MCV 69.8 L (80.0-100.0) fL MCH 20.5 L (25.0-35.0) pg MCHC 29.3 L (31.0-37.0) g/dL RDW 18.0 H (11.5-15.5) % Neutrophils # 15.3 H (1.3-7.7) k/uL Lymphocytes # 0.7 L (1.0-4.8) k/uL Monocytes # (0-1.0) k/uL Chloride 109 H (98-107) mmol/L Carbon Dioxide 21 L (22-30) mmol/L Glucose 132 H (74-99) mg/dL POC Glucose (mg/dL) (75-99) mg/dL Calcium (8.4-10.2) mg/dL Total Creatine Kinase 29 L (30-135) U/L Total Protein 5.8 L (6.3-8.2) g/dL Albumin 3.4 L (3.5-5.0) g/dL Ur Specific [place] (1.001-1.035) Urine Protein (Negative) Urine Blood (Negative) Ur Leukocyte Esterase (Negative) Urine RBC (0-5) /hpf Urine WBC (0-5) /hpf Urine Bacteria (None) /hpf Hyaline Casts (0-2) /lpf Urine Mucus (None) /hpf Crossmatch 09/09/17 09/09/17 09/09/17 Range/Units 11:35 15:00 15:23 WBC 19.9 H (3.8-10.6) k/uL RBC 3.77 L (3.80-5.40) m/uL Hgb 8.5 L (11.4-16.0) gm/dL Hct 28.4 L (34.0-46.0) % MCV 75.3 L D (80.0-100.0) fL MCH 22.5 L (25.0-35.0) pg MCHC 29.9 L (31.0-37.0) g/dL RDW 18.9 H (11.5-15.5) % Neutrophils # (1.3-7.7) k/uL Lymphocytes # (1.0-4.8) k/uL Monocytes # (0-1.0) k/uL Chloride (98-107) mmol/L Carbon Dioxide (22-30) mmol/L Glucose (74-99) mg/dL POC Glucose (mg/dL) 175 H (75-99) mg/dL Calcium (8.4-10.2) mg/dL Total Creatine Kinase (30-135) U/L Total Protein (6.3-8.2) g/dL Albumin (3.5-5.0) g/dL Ur Specific [place] (1.001-1.035) Urine Protein (Negative) Urine Blood (Negative) Ur Leukocyte Esterase (Negative) Urine RBC (0-5) /hpf Urine WBC (0-5) /hpf Urine Bacteria (None) /hpf Hyaline Casts (0-2) /lpf Urine Mucus (None) /hpf Crossmatch See Detail 09/09/17 09/09/17 09/10/17 Range/Units 20:21 22:35 04:02 WBC 19.0 H 15.5 H (3.8-10.6) k/uL RBC 3.49 L 3.32 L (3.80-5.40) m/uL Hgb 7.9 L 7.4 L (11.4-16.0) gm/dL Hct 26.0 L 24.6 L (34.0-46.0) % MCV 74.4 L 74.2 L (80.0-100.0) fL MCH 22.6 L 22.2 L (25.0-35.0) pg MCHC 30.3 L 30.0 L (31.0-37.0) g/dL RDW 19.1 H 19.0 H (11.5-15.5) % Neutrophils # 12.8 H (1.3-7.7) k/uL Lymphocytes # (1.0-4.8) k/uL Monocytes # 1.1 H (0-1.0) k/uL Chloride (98-107) mmol/L Carbon Dioxide (22-30) mmol/L Glucose (74-99) mg/dL POC Glucose (mg/dL) (75-99) mg/dL Calcium (8.4-10.2) mg/dL Total Creatine Kinase (30-135) U/L Total Protein (6.3-8.2) g/dL Albumin (3.5-5.0) g/dL Ur Specific [place] 1.036 H (1.001-1.035) Urine Protein 1+ H (Negative) Urine Blood Small H (Negative) Ur Leukocyte Esterase Moderate H (Negative) Urine RBC 23 H (0-5) /hpf Urine WBC 27 H (0-5) /hpf Urine Bacteria Occasional H (None) /hpf Hyaline Casts 11 H (0-2) /lpf Urine Mucus Few H (None) /hpf Crossmatch 09/10/17 Range/Units 04:02 WBC (3.8-10.6) k/uL RBC (3.80-5.40) m/uL Hgb (11.4-16.0) gm/dL Hct (34.0-46.0) % MCV (80.0-100.0) fL MCH (25.0-35.0) pg MCHC (31.0-37.0) g/dL RDW (11.5-15.5) % Neutrophils # (1.3-7.7) k/uL Lymphocytes # (1.0-4.8) k/uL Monocytes # (0-1.0) k/uL Chloride 108 H (98-107) mmol/L Carbon Dioxide (22-30) mmol/L Glucose 101 H (74-99) mg/dL POC Glucose (mg/dL) (75-99) mg/dL Calcium 8.3 L (8.4-10.2) mg/dL Total Creatine Kinase (30-135) U/L Total Protein (6.3-8.2) g/dL Albumin (3.5-5.0) g/dL Ur Specific [place] (1.001-1.035) Urine Protein (Negative) Urine Blood (Negative) Ur Leukocyte Esterase (Negative) Urine RBC (0-5) /hpf Urine WBC (0-5) /hpf Urine Bacteria (None) /hpf Hyaline Casts (0-2) /lpf Urine Mucus (None) /hpf Crossmatch Assessment and Plan (1) Splenic rupture Narrative/Plan: 47-year-old female status post exploratory laparotomy with splenectomy for spontaneous splenic rupture - Hemoglobin currently 7.4, we'll redraw CBC at noon to evaluate hemoglobin - Increase activity - Continue Bolaños catheter for accurate postoperative intake and output measurements - Continue clear liquid diet - Encouraged incentive spirometry, patient states that she is not doing this at this time - Progressing slowly Current Visit: Yes Status: Acute Code(s): S36.09XA - OTHER INJURY OF SPLEEN , INITIAL ENCOUNTER SNOMED Code(s): 443970384
[2017-09-10] MEDS: ESCITALOPRAM 10 MG TAB PO SCH ×3 (08:06→22:24)
[2017-09-10] MEDS: PANTOPRAZOLE 40 MG/10 ML VIAL IV SCH (08:08)
--- NOTE | 2017-09-10 08:14 | XR ---
EXAMINATION TYPE: XR chest 1V portable DATE OF EXAM: 09/10/2017 COMPARISON: NONE HISTORY: Shortness of breath TECHNIQUE: Single frontal view of the chest is obtained. FINDINGS: Lung volumes are somewhat low. Heart is enlarged. No pneumothorax or pleural effusion evid ent. Minimal patchy basilar density suspected. IMPRESSION: There may be basilar atelectasis, findings may be technical, follow-up PA and lateral ch est x-ray may be of benefit.
--- NOTE | 2017-09-10 09:43 | P.PN ---
Subjective Progress Note Date: 09/10/17 Principal diagnosis: Acute spontaneous splenic rupture, status post exploratory laparotomy and splenectomy postop day 1 This is a 47-year-old female with history of hypothyroidism, no previous history of underlying malignancy, no history of multiple myeloma, no history of recent viral infection, patient presented to the ER with 3 days history of abdominal pain. Pain started initially in the right upper quadrant, then migrated to the left upper quadrant, left shoulder, and left back. Pain has been increasing in severity over the last 3 days. Patient was also complaining of lightheadedness, no nausea, no vomiting, no melena, no hematemesis, and no recent history of trauma. Patient had a CT of the abdomen and pelvis performed in the ER, and it clearly showed a spontaneous splenic rupture. While in the ER , patient was noted to be hypotensive, resuscitated with fluid boluses and packed RBCs, patient was seen by surgery on consultation, taken to the or, underwent splenectomy, transferred back to the ICU hemodynamically stable, and in no distress. Patient was extubated uneventfully in the recovery room, and she is now on nasal cannula. Denies any specific complaints. Patient had only abdominal pain as noted in the HPI. On 09/10/2017 patient seen in follow-up in intensive care unit. She is resting comfortably in bed, denies any acute distress. Her postsurgical abdominal pain is reasonably controlled, there is a abdominal binder in place, surgical incisions are covered with surgical dressings. Patient is awake alert, responding appropriately., Denies any difficulty breathing, she is compliant with her incentive spirometer. Today's chest x-ray shows poor inspiratory effort, hypoventilatory lungs, with basilar atelectasis. Patient is having some mild nausea, but no emesis area to is tolerant clear liquid diet. Bolaños catheter is in place. Today's labs show WBC is 15.5, down from 19.0, hemoglobin is 7.4, and recheck CBC is scheduled for noon, sodium is 142 potassium is 4.4, renal profile is within normal limits, urinalysis shows moderate leukocyte esterase, occasional bacteria and white blood cells. Clinically patient denies any urinary symptoms, patient is nonoliguric. Hemodynamically stable, maintenance IVs include LR at a rate of 125 ML per hour. FiO2 is at 3 L per nasal cannula with O2 sat at 91%. Objective - Vital Signs Vital signs: Vital Signs Temp 98.7 F 09/10/17 08:00 Pulse 88 09/10/17 09:00 Resp 19 09/10/17 09:00 BP 128/46 09/10/17 09:00 Pulse Ox 91 L 09/10/17 09:00 Intake & Output 09/09/17 09/10/17 09/10/17 18:59 06:59 18:59 Intake Total 2070 1405 375 Output Total 660 380 210 Balance 1410 1025 165 Weight 98 kg 101.8 kg Intake: IV 950 1375 375 Lactated Ringers 1,000 ml 1375 375 @ 125 mls/hr IV .Q8H MONIQUE Rx#:[id number] Intake, IV Titration 500 Amount Lactated Ringers 1,000 ml 500 @ 125 mls/hr IV .Q8H MONIQUE Rx#:[id number] Oral 30 Blood Product 620 Rc As-1 Unit 310 [id number] Rc Pheresis 2 As3 Unit 310 [id number] Output: Drainage 50 Abdomen 50 Urine 620 380 160 Estimated Blood Loss 20 Other 20 Other: Voiding Method Indwelling Catheter Indwelling Catheter # Bowel Movements 0 - Exam Physical Exam: Revealed a 47-year-old female in no distress. Head: Atraumatic, normocephalic. HEENT: PERRLA, EOMI, [Neck is supple.] [No neck masses.] [No thyromegaly.] [No JVD.], Dry mucous membranes. Chest: [Diminished breath sounds at the bases, no crackles or rhonchi or wheezes..] Cardiac Exam: [Normal S1 and S2, no S3 gallop, no murmur.] Abdomen: [Soft, slightly tender. Sterile dressing noted over the incision., no megaly, diminished bowel sounds noted.Abdominal binder is in place Extremities: [No clubbing, no edema, no cyanosis.] Neurological Exam: [No focal neurologic deficit.] Lymphatics: No lymphadenopathy. - Labs CBC & Chem 7: 09/10/17 04:02 09/10/17 04:02 Labs: Abnormal Lab Results - Last 24 Hours (Table) 09/09/17 09/09/17 09/09/17 Range/Units 09:20 09:20 09:20 WBC 17.0 H (3.8-10.6) k/uL RBC (3.80-5.40) m/uL Hgb 8.5 L D (11.4-16.0) gm/dL Hct 29.1 L (34.0-46.0) % MCV 69.8 L (80.0-100.0) fL MCH 20.5 L (25.0-35.0) pg MCHC 29.3 L (31.0-37.0) g/dL RDW 18.0 H (11.5-15.5) % Neutrophils # 15.3 H (1.3-7.7) k/uL Lymphocytes # 0.7 L (1.0-4.8) k/uL Monocytes # (0-1.0) k/uL Chloride 109 H (98-107) mmol/L Carbon Dioxide 21 L (22-30) mmol/L Glucose 132 H (74-99) mg/dL POC Glucose (mg/dL) (75-99) mg/dL Calcium (8.4-10.2) mg/dL Total Creatine Kinase 29 L (30-135) U/L Total Protein 5.8 L (6.3-8.2) g/dL Albumin 3.4 L (3.5-5.0) g/dL Ur Specific [place] (1.001-1.035) Urine Protein (Negative) Urine Blood (Negative) Ur Leukocyte Esterase (Negative) Urine RBC (0-5) /hpf Urine WBC (0-5) /hpf Urine Bacteria (None) /hpf Hyaline Casts (0-2) /lpf Urine Mucus (None) /hpf Crossmatch 09/09/17 09/09/17 09/09/17 Range/Units 11:35 15:00 15:23 WBC 19.9 H (3.8-10.6) k/uL RBC 3.77 L (3.80-5.40) m/uL Hgb 8.5 L (11.4-16.0) gm/dL Hct 28.4 L (34.0-46.0) % MCV 75.3 L D (80.0-100.0) fL MCH 22.5 L (25.0-35.0) pg MCHC 29.9 L (31.0-37.0) g/dL RDW 18.9 H (11.5-15.5) % Neutrophils # (1.3-7.7) k/uL Lymphocytes # (1.0-4.8) k/uL Monocytes # (0-1.0) k/uL Chloride (98-107) mmol/L Carbon Dioxide (22-30) mmol/L Glucose (74-99) mg/dL POC Glucose (mg/dL) 175 H (75-99) mg/dL Calcium (8.4-10.2) mg/dL Total Creatine Kinase (30-135) U/L Total Protein (6.3-8.2) g/dL Albumin (3.5-5.0) g/dL Ur Specific [place] (1.001-1.035) Urine Protein (Negative) Urine Blood (Negative) Ur Leukocyte Esterase (Negative) Urine RBC (0-5) /hpf Urine WBC (0-5) /hpf Urine Bacteria (None) /hpf Hyaline Casts (0-2) /lpf Urine Mucus (None) /hpf Crossmatch See Detail 09/09/17 09/09/17 09/10/17 Range/Units 20:21 22:35 04:02 WBC 19.0 H 15.5 H (3.8-10.6) k/uL RBC 3.49 L 3.32 L (3.80-5.40) m/uL Hgb 7.9 L 7.4 L (11.4-16.0) gm/dL Hct 26.0 L 24.6 L (34.0-46.0) % MCV 74.4 L 74.2 L (80.0-100.0) fL MCH 22.6 L 22.2 L (25.0-35.0) pg MCHC 30.3 L 30.0 L (31.0-37.0) g/dL RDW 19.1 H 19.0 H (11.5-15.5) % Neutrophils # 12.8 H (1.3-7.7) k/uL Lymphocytes # (1.0-4.8) k/uL Monocytes # 1.1 H (0-1.0) k/uL Chloride (98-107) mmol/L Carbon Dioxide (22-30) mmol/L Glucose (74-99) mg/dL POC Glucose (mg/dL) (75-99) mg/dL Calcium (8.4-10.2) mg/dL Total Creatine Kinase (30-135) U/L Total Protein (6.3-8.2) g/dL Albumin (3.5-5.0) g/dL Ur Specific [place] 1.036 H (1.001-1.035) Urine Protein 1+ H (Negative) Urine Blood Small H (Negative) Ur Leukocyte Esterase Moderate H (Negative) Urine RBC 23 H (0-5) /hpf Urine WBC 27 H (0-5) /hpf Urine Bacteria Occasional H (None) /hpf Hyaline Casts 11 H (0-2) /lpf Urine Mucus Few H (None) /hpf Crossmatch 09/10/17 Range/Units 04:02 WBC (3.8-10.6) k/uL RBC (3.80-5.40) m/uL Hgb (11.4-16.0) gm/dL Hct (34.0-46.0) % MCV (80.0-100.0) fL MCH (25.0-35.0) pg MCHC (31.0-37.0) g/dL RDW (11.5-15.5) % Neutrophils # (1.3-7.7) k/uL Lymphocytes # (1.0-4.8) k/uL Monocytes # (0-1.0) k/uL Chloride 108 H (98-107) mmol/L Carbon Dioxide (22-30) mmol/L Glucose 101 H (74-99) mg/dL POC Glucose (mg/dL) (75-99) mg/dL Calcium 8.3 L (8.4-10.2) mg/dL Total Creatine Kinase (30-135) U/L Total Protein (6.3-8.2) g/dL Albumin (3.5-5.0) g/dL Ur Specific [place] (1.001-1.035) Urine Protein (Negative) Urine Blood (Negative) Ur Leukocyte Esterase (Negative) Urine RBC (0-5) /hpf Urine WBC (0-5) /hpf Urine Bacteria (None) /hpf Hyaline Casts (0-2) /lpf Urine Mucus (None) /hpf Crossmatch Assessment and Plan Plan: Assessment: 1 acute spontaneous splenic rupture, status post expiratory laparotomy and splenectomy postoperative day #1. 2 acute hypotension upon initial presentation secondary to splenic rupture, and secondary to acute blood loss, recovered, and this morning on 09/10/2017 patient was dynamically stable, nonoliguric, and is not requiring any vasopressor support. 3 acute blood loss secondary to splenic rupture, requiring 2 units of packed RBCs since admission. 4 history of hypothyroidism, on replacement therapy. Plan: Patient's chest x-ray was reviewed, and shows poor inspiratory effort and bibasilar atelectasis. Continue pulmonary toileting, continue incentive spirometry use. Patient is hemodynamically stable this morning, no vasopressor support. Hemoglobin is 7.4, with recheck CBC due at noon. Tolerating clear liquid diet, we will check with surgery if patient can be moved out of the ICU today to a regular medical surgical floor. I performed a history & physical examination of the patient and discussed their management with my nurse practitioner, Radha Gray. I reviewed the nurse practitioner's note and agree with the documented findings and plan of care. Lung sounds are diminished with a few rales. The findings and the impression was discussed with the patient. I attest to the documentation by the nurse practitioner. Critical care time is over 30 minutes Time with Patient: Greater than 30
[2017-09-10] MEDS: HYDROcodone/APAP 5-325MG 1 EACH TAB PO PRN ×3 (12:12→22:26)
[2017-09-10 13:38] LABS: Anisocytosis Slight; HCT 24.5 % (34.0-46.0); HGB 7.4 gm/dL (11.4-16.0); Hypochromasia Marked; MCH 22.1 pg (25.0-35.0); MCHC 30.1 g/dL (31.0-37.0); MCV 73.6 fL (80.0-100.0); Mean Platelet Volume 8.6; Microcytosis Moderate; Platelet Count 224 k/uL (150-450); Poikilocytosis Moderate; RBC 3.33 m/uL (3.80-5.40); RDW 19.3 % (11.5-15.5); WBC 17.5 k/uL (3.8-10.6)
[2017-09-10 14:00] LABS: Basophils # (M) 0.18 k/uL (0-0.2); Lymphocytes # (M) 0.35 k/uL (1.0-4.8); Mixed Population RBC Present; Monocytes # (M) 0.88 k/uL (0-1.0); Neutrophils % (M) 92 %; Nucleated Red Blood Cells 0 /100 WBC (0-0); Total Cells Counted 100
[2017-09-10 14:01] LABS: Polychromasia Present
--- NOTE | 2017-09-10 15:22 | P.CON ---
Consult Note - . Consult date: 09/10/17 Assessment/Plan:: Reason for medical consult - management of chronic medical conditions Mrs. Sanford is a 47-year-old female with a past medical history of hypothyroidism admitted to the hospital with a chief complaint of abdominal pain. Patient reportedly was having abdominal pain for 3 days which was mostly in the left upper quadrant was radiating to her left back and left shoulder. The patient did not seek any medical attention until the pain was very worse and she was also having some lightheadedness. In the ED the patient was found 2 have hypotension and low hemoglobin. Patient was given IV fluids and got 2 units of PRBCs given. The CAT scan of the abdomen and pelvis showed splenic rupture and so she was taken to the OR immediately. Patient underwent splenectomy and has been transferred to the ICU where she was extubated successfully. Currently the patient is lying in bed appears to be in slight abdominal discomfort. Patient did receive a dose of Dilaudid few minutes back and so has been drowsy. She does wake up on calling her name and says a few questions but dozes off. She did not appear to be in acute distress. Review of systems; could not be done as the patient is drowsy as she just got IV Dilaudid. On reviewing her medical records patient has past medical history of hypothyroidism and depression with anxiety. Her home medications are levothyroxine Lexapro and Xanax. Past Medical History Past Medical History: Thyroid Disorder Additional Past Medical History / Comment(s): ovarian cyst and mass on uterus () History of Any Multi-Drug Resistant Organisms: None Reported Past Surgical History: No Surgical Hx Reported Past Psychological History: Depression Smoking Status: Current every day smoker Past Alcohol Use History: None Reported Past Drug Use History: None Reported Family history: No history of coronary artery disease Medications and Allergies Home Medications Medication Instructions Recorded Confirmed Type Escitalopram [Lexapro] 10 mg PO DAILY 08/25/17 08/25/17 History Hydrocodone/Acetaminophen [[place] 1 tab PO Q6HR PRN #12 tab 08/25/17 Rx 5-325] Ibuprofen [Motrin] 600 mg PO Q8HR PRN #30 tab 08/25/17 Rx Levothyroxine Sodium [Synthroid] 112 mcg PO DAILY 08/25/17 08/25/17 History Allergies Allergy/AdvReac Type Severity Reaction Status Date / Time Penicillins Allergy Unknown Verified 08/25/17 20:56 Childhood GENERAL EXAM GEN. APPEARANCE: alert, in no apparent distress HEAD EXAM: atraumatic, normocephalic, normal inspection EYE EXAM: Mild pale or ENT EXAM: normal exam, mucous membranes moist RESPIRATORY EXAM: normal lung sounds bilaterally. Absent: respiratory distress , wheezes, rales, rhonchi, stridor CARDIOVASCULAR EXAM: regular rate, normal rhythm, normal heart sounds. Absent : systolic murmur, diastolic murmur, rubs, gallop, clicks GI/ABDOMINAL EXAM: Soft, mild tenderness in all quadrants. Abdominal binder in place. No active bleeding of the surgical scar. EXTREMITIES EXAM: normal inspection, full ROM, normal capillary refill. Absent : tenderness, pedal edema, joint swelling, calf tenderness BACK EXAM: normal inspection NEUROLOGICAL EXAM: alert, oriented to name and place. Could not do a full neurological exam as the patient is drowsy. PSYCHIATRIC EXAM: normal affect, normal mood SKIN EXAM: warm, dry, intact, normal color. Absent: rash ASSESSMENT Spontaneous splenic rupture- status post splenectomy by Exploratory laparotomy Hypotension- hypovolemia - acute blood loss due to splenic rupture History of hypothyroidism Depression with anxiety Morbid obesity with BMI of 42.4 Hypomagnesemia Hypocalcemia Plan: Patient has been resumed on her home medications for her hypothyroidism and depression. To replace electrolytes. Patient will need vaccines against encapsulated organisms- Streptococcus pneumoniae, Haemophilus influenza type B and Neisseria meningitidis. Further recommendations to follow depending on the progress of the patient. Thank you for the consult.
[2017-09-10] MEDS ORDERED: hydrALAZINE HCL 20 MG/ML 1 ML VIAL IVP PRN (17:13)
[2017-09-10] MEDS: ONDANSETRON 4 MG/2 ML VIAL IVP PRN (18:13)
[2017-09-10] MEDS: ALPRAZolam 1 MG TAB PO PRN (20:07)
[2017-09-11] MEDS: LACTATED RINGERS 1,000 ML IV SCH ×4 (00:05→14:38)
[2017-09-11] MEDS: HEPARIN SODIUM,PORCINE 5,000 UNIT/ML 1 ML VIAL SQ SCH ×3 (00:14→18:11)
[2017-09-11 05:44] LABS: Anion Gap 10 mmol/L; Blood Urea Nitrogen 12 mg/dL (7-17); Calcium 8.7 mg/dL (8.4-10.2); Carbon Dioxide 27 mmol/L (22-30); Chloride 104 mmol/L (98-107); Glucose 104 mg/dL (74-99); Potassium 4.2 mmol/L (3.5-5.1); Sodium 141 mmol/L (137-145)
[2017-09-11 06:29] LABS: Anisocytosis Slight; HCT 23.4 % (34.0-46.0); Hypochromasia Marked; MCH 22.3 pg (25.0-35.0); MCV 74.4 fL (80.0-100.0); Mean Platelet Volume 7.5; Microcytosis Moderate; Platelet Count 257 k/uL (150-450); Poikilocytosis Moderate; RBC 3.15 m/uL (3.80-5.40)
[2017-09-11] MEDS: LEVOTHYROXINE 112 MCG TAB PO SCH (06:57)
[2017-09-11] MEDS ORDERED: CALCIUM CARBONATE 500 MG CHEWABLE PO PRN (07:02)
--- NOTE | 2017-09-11 07:33 | P.PN ---
Subjective Progress Note Date: 09/11/17 Principal diagnosis: Status post spontaneous ruptured spleen Progress note dated 09/11/2017 The patient is again seen on September 11. The patient seemed be resting relatively comfortably. She is status post splenectomy for spontaneous ruptured spleen. Pain is reasonably well controlled. She is not taking deep breaths. She does have significant chest congestion. I did tell her to make sure she used her incentive spirometer more frequently. She remains on O2 at 4 L by nasal cannula and she is getting lactated Ringer's IV at 125 mL an hour. The patient' s labs today are reviewed. White count is 21.8 hemoglobin is 7 hematocrit 23.4 platelet count is 257,000. Sodium potassium chloride CO2 BUN/creatinine anion gap and calcium are all normal. Microbiology is negative. Orders are reviewed. Objective - Vital Signs Vital signs: Vital Signs Temp 98.2 F 09/11/17 04:00 Pulse 91 09/11/17 04:00 Resp 18 09/11/17 04:00 BP 138/84 09/11/17 04:00 Pulse Ox 95 09/11/17 04:00 Intake & Output 09/10/17 09/11/17 09/11/17 18:59 06:59 18:59 Intake Total 750 1250 125 Output Total 740 810 125 Balance 10 440 0 Intake: IV 750 1250 125 Lactated Ringers 1,000 ml 750 1250 125 @ 125 mls/hr IV .Q8H [facility] Rx#:[id number] Output: Drainage 140 300 Abdomen 140 300 Urine 600 510 125 Other: Voiding Method Indwelling Catheter Indwelling Catheter # Bowel Movements 0 - Exam Physical Exam: Revealed a 47-year-old female in no distress. Head: Atraumatic, normocephalic. HEENT: PERRLA, EOMI, [Neck is supple.] [No neck masses.] [No thyromegaly.] [No JVD.], Dry mucous membranes. Chest: [Diminished breath sounds at the bases, no crackles or rhonchi or wheezes..] Cardiac Exam: [Normal S1 and S2, no S3 gallop, no murmur.] Abdomen: [Soft, slightly tender. Sterile dressing noted over the incision., no megaly, diminished bowel sounds noted.Abdominal binder is in place Extremities: [No clubbing, no edema, no cyanosis.] Neurological Exam: [No focal neurologic deficit.] Lymphatics: No lymphadenopathy. - Labs CBC & Chem 7: 09/11/17 04:32 09/11/17 04:32 Labs: Abnormal Lab Results - Last 24 Hours (Table) 09/09/17 09/10/17 09/11/17 Range/Units 11:35 13:00 04:32 WBC 17.5 H 21.8 H (3.8-10.6) k/uL RBC 3.33 L 3.15 L (3.80-5.40) m/uL Hgb 7.4 L 7.0 L* (11.4-16.0) gm/dL Hct 24.5 L 23.4 L (34.0-46.0) % MCV 73.6 L 74.4 L (80.0-100.0) fL MCH 22.1 L 22.3 L (25.0-35.0) pg MCHC 30.1 L 30.0 L (31.0-37.0) g/dL RDW 19.3 H 19.0 H (11.5-15.5) % Neutrophils # (Manual) 16.10 H (1.3-7.7) k/uL Lymphocytes # (Manual) 0.35 L (1.0-4.8) k/uL Glucose (74-99) mg/dL Crossmatch See Detail 09/11/17 Range/Units 04:32 WBC (3.8-10.6) k/uL RBC (3.80-5.40) m/uL Hgb (11.4-16.0) gm/dL Hct (34.0-46.0) % MCV (80.0-100.0) fL MCH (25.0-35.0) pg MCHC (31.0-37.0) g/dL RDW (11.5-15.5) % Neutrophils # (Manual) (1.3-7.7) k/uL Lymphocytes # (Manual) (1.0-4.8) k/uL Glucose 104 H (74-99) mg/dL Crossmatch Microbiology - Last 24 Hours (Table) 09/09/17 22:35 Urine Culture - Preliminary Urine,Catheterized Assessment and Plan Assessment: Assessment: 1 acute spontaneous splenic rupture, status post expiratory laparotomy and splenectomy postoperative day #2. 2 acute hypotension upon initial presentation secondary to splenic rupture, and secondary to acute blood loss, recovered, and this morning on 09/10/2017 patient was dynamically stable, nonoliguric, and is not requiring any vasopressor support. 3 acute blood loss secondary to splenic rupture, requiring 2 units of packed RBCs since admission. 4 history of hypothyroidism, on replacement therapy. Plan: Plan dated 09/11/2017 The patient remains on O2 at 4 L by nasal cannula. He is not taking deep breaths clear secretions coughing, etc. She is also not using the incentive spirometer is frequently she should. The patient is stable. Could be transferred out to the general medical/surgical floor. The hemoglobin is right at 7. In my opinion I would not transfuse her. I'll leave that up to the surgeon to decide that. Theoretically she should not be transfused unless hemoglobin drops below 7. We'll continue to follow. Prognosis is guarded. No additional recommendations are made. Critical care time 34 minutes Time with Patient: Greater than 30
[2017-09-11] MEDS: PANTOPRAZOLE 40 MG/10 ML VIAL IV SCH (08:00)
[2017-09-11 08:35] LABS: Lymphocytes # (M) 1.28 k/uL (1.0-4.8); Monocytes # (M) 1.28 k/uL (0-1.0); Neutrophils # (M) 18.83 k/uL (1.3-7.7); Neutrophils % (M) 88 %; Nucleated Red Blood Cells 2 /100 WBC (0-0); Total Cells Counted 200; WBC 21.4 k/uL (3.8-10.6)
[2017-09-11] MEDS: ACETAMINOPHEN IV (For NPO) 1,000 MG in EMPTY BAG 1 BAG IVPB PRN (13:15)
--- NOTE | 2017-09-11 13:55 | P.PN ---
Subjective Progress Note Date: 09/11/17 Patient seen and examined at bedside. She is sitting in a chair with her present. She states most of her pain is where the DION drain site is. She had 1 episode of emesis overnight. She states that she has been having flatus but denies any bowel movements. DION drain overnight had 300 mL of serosanguineous output. Bolaños catheter remains in place. Objective - Vital Signs Vital signs: Vital Signs Temp 98.8 F 09/11/17 12:45 Pulse 84 09/11/17 12:45 Resp 18 09/11/17 12:45 BP 110/52 09/11/17 12:45 Pulse Ox 94 L 09/11/17 12:45 Intake & Output 09/10/17 09/11/17 09/11/17 18:59 06:59 18:59 Intake Total 750 1250 250 Output Total 740 810 265 Balance 10 440 -15 Intake: IV 750 1250 250 Lactated Ringers 1,000 ml 750 1250 250 @ 125 mls/hr IV .Q8H [facility] Rx#:[id number] Output: Drainage 140 300 40 Abdomen 140 300 40 Urine 600 510 225 Other: Voiding Method Indwelling Catheter Indwelling Catheter Indwelling Catheter # Bowel Movements 0 0 - Constitutional General appearance: Present: cooperative, no acute distress - Neck Neck: Present: normal ROM - Respiratory Details: No difficulty with respiration - Gastrointestinal Gastrointestinal Comment(s): Soft, appropriate tenderness, nondistended, no rebound, no guarding, incision site clean, dry and intact with jolie in place, DION drain in place with serosanguineous output - Musculoskeletal Musculoskeletal: Present: generalized weakness - Psychiatric Psychiatric: Present: A&O x's 3 - Labs CBC & Chem 7: 09/11/17 04:32 09/11/17 04:32 Labs: Abnormal Lab Results - Last 24 Hours (Table) 09/09/17 09/10/17 09/11/17 Range/Units 11:35 13:00 04:32 WBC 21.4 H (3.8-10.6) k/uL RBC 3.15 L (3.80-5.40) m/uL Hgb 7.0 L* (11.4-16.0) gm/dL Hct 23.4 L (34.0-46.0) % MCV 74.4 L (80.0-100.0) fL MCH 22.3 L (25.0-35.0) pg MCHC 30.0 L (31.0-37.0) g/dL RDW 19.0 H (11.5-15.5) % Neutrophils # (Manual) 16.10 H 18.83 H (1.3-7.7) k/uL Lymphocytes # (Manual) 0.35 L (1.0-4.8) k/uL Monocytes # (Manual) 1.28 H (0-1.0) k/uL Nucleated RBCs 2 H (0-0) /100 WBC Glucose (74-99) mg/dL Crossmatch See Detail 09/11/17 Range/Units 04:32 WBC (3.8-10.6) k/uL RBC (3.80-5.40) m/uL Hgb (11.4-16.0) gm/dL Hct (34.0-46.0) % MCV (80.0-100.0) fL MCH (25.0-35.0) pg MCHC (31.0-37.0) g/dL RDW (11.5-15.5) % Neutrophils # (Manual) (1.3-7.7) k/uL Lymphocytes # (Manual) (1.0-4.8) k/uL Monocytes # (Manual) (0-1.0) k/uL Nucleated RBCs (0-0) /100 WBC Glucose 104 H (74-99) mg/dL Crossmatch Microbiology - Last 24 Hours (Table) 09/09/17 22:35 Urine Culture - Final Urine,Catheterized Assessment and Plan (1) Splenic rupture Narrative/Plan: 47-year-old female status post exploratory laparotomy with splenectomy for spontaneous splenic rupture - Hemoglobin currently 7.0, plan to redraw hemoglobin, decision for any transfusion to be made after redraw - Increase activity - Discontinue Bolaños catheter - Advance to regular diet - Continue to monitor DION drain output - Encouraged incentive spirometry, patient states that she is not doing this at this time - Progressing slowly Current Visit: Yes Status: Acute Code(s): S36.09XA - OTHER INJURY OF SPLEEN , INITIAL ENCOUNTER SNOMED Code(s): 467711942
[2017-09-11 15:22] LABS: Anisocytosis Slight; Basophils # (A) 0.1 k/uL (0-0.2); Basophils % (A) 0 %; Eosinophils # (A) 0.2 k/uL (0-0.7); Eosinophils % (A) 1 %; HCT 23.3 % (34.0-46.0); Hypochromasia Marked; Lymphocytes # (A) 1.9 k/uL (1.0-4.8); Lymphocytes % (A) 10 %; MCH 22.3 pg (25.0-35.0); MCHC 29.9 g/dL (31.0-37.0); MCV 74.5 fL (80.0-100.0); Microcytosis Moderate; Monocytes % (A) 5 %; Neutrophils # (A) 15.7 k/uL (1.3-7.7); Neutrophils % (A) 81 %; Platelet Count 283 k/uL (150-450); Poikilocytosis Moderate; RBC 3.13 m/uL (3.80-5.40); RDW 19.1 % (11.5-15.5); WBC 19.2 k/uL (3.8-10.6)
--- NOTE | 2017-09-11 15:39 | PN ---
PROGRESS NOTE DATE OF SERVICE: 09/11/2017 This is a 47-year-old woman who was admitted after spontaneous splenic rupture, splenectomy, exploratory laparotomy. The patient had hypovolemic hypotension, on multiple medications. Patient was anemic also. Repeat hemoglobin has been recommended before transfusions. Otherwise, patient is being closely monitored at this time. Patient is complaining of abdominal pain, post surgical. The WBC was found to be 21.4 and hemoglobin is found to be 7, glucose is found to be 104. The pulse was 94% on 2 L. PAST MEDICAL HISTORY: Reviewed. REVIEW OF SYSTEMS: CARDIOVASCULAR: No angina. RESPIRATORY: As mentioned earlier. GI: No nausea. : No dysuria. The patient is complaining of abdominal, pain postsurgical. CURRENT MEDICATIONS: 1. Tylenol 1000 q.6 p.r.n. 2. [place] 5 mg q.4 p.r.n. 3. DuoNeb q.i.d. and p.r.n. 4. Xanax 1 mg daily. 5. Lexapro 10 mg. 6. Omeprazole. 7. Synthroid. 8. Narcan Protonix. PHYSICAL EXAM: Patient is alert and oriented x3.fblood pressure 120/52, respiration 18, temp 98.8, pulse ox 94% on 2 L. HEENT: Conjunctivae normal. Oral mucosa moist. Neck is no jugular venous distention. CARDIOVASCULAR: S1, S2, muffled. Respiration at the bases, a few scattered rhonchi and crackles. ABDOMEN: Soft, status post surgery. Abdominal binder in place. No guarding, no rigidity. LEGS: No edema, no cyanosis. NERVOUS SYSTEM: No focal deficit. LAB STUDIES: WBC is 21.2, hemoglobin is 7. ASSESSMENT: 1. Spontaneous splenic rupture, status post exploratory laparotomy and splenectomy. 2. Hypotension, hypovolemia, acute blood loss secondary to splenic rupture. 3. History of hypothyroidism. 4. Depression, anxiety. 5. Morbid obesity. 6. Hypomagnesemia. 7. Hypocalcemia. 8. Increased WBC. RECOMMENDATION: In this 47-year-old woman who presented with multiple complex medical issues, will monitor the patient closely, continue with the current management and symptomatic treatment. Hemoglobin less than 7, transfuse, incentive spirometry. Monitor hemoglobin on a periodic basis. Closely follow with surgery. Guarded prognosis because of multiple complex issues. Further recommendations to follow. MMODL / IJN: [id number] /
[2017-09-11 15:58] LABS: Polychromasia Present
[2017-09-11] MEDS: ESCITALOPRAM 10 MG TAB PO SCH (21:13)
[2017-09-12] MEDS: ACETAMINOPHEN IV (For NPO) 1,000 MG in EMPTY BAG 1 BAG IVPB PRN (00:46)
[2017-09-12] MEDS: HEPARIN SODIUM,PORCINE 5,000 UNIT/ML 1 ML VIAL SQ SCH ×3 (00:56→17:07)
[2017-09-12] MEDS: LACTATED RINGERS 1,000 ML IV SCH ×2 (02:28→08:36)
[2017-09-12] MEDS: LEVOTHYROXINE 112 MCG TAB PO SCH (07:38)
[2017-09-12 07:50] LABS: Anisocytosis Slight; HCT 23.4 % (34.0-46.0); Hypochromasia Marked; MCH 22.2 pg (25.0-35.0); MCHC 29.7 g/dL (31.0-37.0); MCV 74.8 fL (80.0-100.0); Mean Platelet Volume 7.9; Microcytosis Moderate; Platelet Count 319 k/uL (150-450); Poikilocytosis Moderate; RBC 3.13 m/uL (3.80-5.40); RDW 18.9 % (11.5-15.5)
[2017-09-12 08:13] LABS: Amylase 32 U/L (30-110); Anion Gap 10 mmol/L; Blood Urea Nitrogen 8 mg/dL (7-17); Calcium 8.5 mg/dL (8.4-10.2); Carbon Dioxide 27 mmol/L (22-30); Chloride 104 mmol/L (98-107); Glucose 88 mg/dL (74-99); Lipase 23 U/L (23-300); Potassium 3.9 mmol/L (3.5-5.1); Sodium 141 mmol/L (137-145)
[2017-09-12] MEDS: PANTOPRAZOLE 40 MG/10 ML VIAL IV SCH ×2 (08:37→21:40)
[2017-09-12 09:09] LABS: Polychromasia Present
[2017-09-12 09:12] LABS: Eosinophils # (M) 0.59 k/uL (0-0.7); Lymphocytes # (M) 1.76 k/uL (1.0-4.8); Monocytes # (M) 0.98 k/uL (0-1.0); Neutrophils # (M) 16.38 k/uL (1.3-7.7); Neutrophils % (M) 84 %; Nucleated Red Blood Cells 10 /100 WBC (0-0); Total Cells Counted 200; WBC 19.5 k/uL (3.8-10.6)
--- NOTE | 2017-09-12 10:03 | P.PN ---
Subjective Progress Note Date: 09/12/17 Principal diagnosis: Status post spontaneous ruptured spleen Progress note dated 09/11/2017 The patient is again seen on September 11. The patient seemed be resting relatively comfortably. She is status post splenectomy for spontaneous ruptured spleen. Pain is reasonably well controlled. She is not taking deep breaths. She does have significant chest congestion. I did tell her to make sure she used her incentive spirometer more frequently. She remains on O2 at 4 L by nasal cannula and she is getting lactated Ringer's IV at 125 mL an hour. The patient' s labs today are reviewed. White count is 21.8 hemoglobin is 7 hematocrit 23.4 platelet count is 257,000. Sodium potassium chloride CO2 BUN/creatinine anion gap and calcium are all normal. Microbiology is negative. Orders are reviewed. Progress note dated 09/12/2017 This is a patient who was seen yesterday in the ICU. She is a 47-year-old female who is status post splenectomy. She had spontaneous rupture of the spleen. There was no trauma. The patient's currently been weaned off of oxygen. She is doing a deep breathing coughing and clearing her secretions. She is using her incentive spirometer. The patient is feeling much better. A bit sad today. No particular complaints. Certainly no respiratory complaints. Labs today reveal a white count of 19.5. I hemoglobin 7 hematocrit 23.4 and a platelet count of 319,000. All her electrolytes and renal function as well as her amylase and lipase are all normal. Objective - Vital Signs Vital signs: Vital Signs Temp 99.6 F 09/12/17 08:07 Pulse 95 09/12/17 08:07 Resp 18 09/12/17 08:07 BP 124/81 09/12/17 08:07 Pulse Ox 96 09/12/17 08:07 Intake & Output 09/11/17 09/12/17 09/12/17 18:59 06:59 18:59 Intake Total 650 1180 Output Total 725 75 Balance -75 1105 Intake: IV 650 Lactated Ringers 1,000 ml 650 @ 50 mls/hr IV .Q20H [facility] Rx#:[id number] Intake, IV Titration 100 Amount ACETAMINOPHEN IV (For NPO 100 ) 1,000 mg In Empty Bag 1 bag @ 400 mls/hr IVPB Q6HR PRN Rx#:[id number] Oral 1080 Output: Drainage 200 75 Abdomen 200 75 Urine 525 Other: Voiding Method Indwelling Catheter Toilet Toilet # Voids 3 # Bowel Movements 0 0 - Exam No acute distress, oriented 3. No supplemental oxygen. HEENT examination is grossly unremarkable. Mucous membranes are moist. No oral lesions. Neck supple. Full range of motion. No adenopathy thyromegaly or neck vein distention. Cardiovascular examination reveals regular rhythm rate. S1-S2 normal. No S3 or S4. No discernible murmur noted. Lungs reveal clear breath sounds. Her sounds are equal bilaterally. No adventitious lung sounds including wheezes rhonchi or crackles. Abdomen soft with mild tenderness. Bowel sounds are heard. Extremities are intact. No cyanosis clubbing or edema. Skin is without rash or lesion. Neurologic examination is brief but nonfocal. - Labs CBC & Chem 7: 09/12/17 06:49 09/12/17 06:49 Labs: Abnormal Lab Results - Last 24 Hours (Table) 09/11/17 09/12/17 Range/Units 15:01 06:49 WBC 19.2 H 19.5 H (3.8-10.6) k/uL RBC 3.13 L 3.13 L (3.80-5.40) m/uL Hgb 7.0 L* 7.0 L* (11.4-16.0) gm/dL Hct 23.3 L 23.4 L (34.0-46.0) % MCV 74.5 L 74.8 L (80.0-100.0) fL MCH 22.3 L 22.2 L (25.0-35.0) pg MCHC 29.9 L 29.7 L (31.0-37.0) g/dL RDW 19.1 H 18.9 H (11.5-15.5) % Neutrophils # 15.7 H (1.3-7.7) k/uL Neutrophils # (Manual) 16.38 H (1.3-7.7) k/uL Nucleated RBCs 10 H (0-0) /100 WBC Microbiology - Last 24 Hours (Table) 09/09/17 22:35 Urine Culture - Final Urine,Catheterized Assessment and Plan Assessment: Assessment: 1 acute spontaneous splenic rupture, status post expiratory laparotomy and splenectomy postoperative day #2. 2 acute hypotension upon initial presentation secondary to splenic rupture, and secondary to acute blood loss, recovered, and this morning on 09/10/2017 patient was dynamically stable, nonoliguric, and is not requiring any vasopressor support. 3 acute blood loss secondary to splenic rupture, requiring 2 units of packed RBCs since admission. 4 history of hypothyroidism, on replacement therapy. Plan: Plan dated 09/11/2017 The patient remains on O2 at 4 L by nasal cannula. He is not taking deep breaths clear secretions coughing, etc. She is also not using the incentive spirometer is frequently she should. The patient is stable. Could be transferred out to the general medical/surgical floor. The hemoglobin is right at 7. In my opinion I would not transfuse her. I'll leave that up to the surgeon to decide that. Theoretically she should not be transfused unless hemoglobin drops below 7. We'll continue to follow. Prognosis is guarded. No additional recommendations are made. Critical care time 34 minutes Plan dated 09/12/2017 The patient continues to improve. She should have the obligate vaccination prior to discharge. Include pneumococcal vaccine. The patient is currently off of oxygen. He is focusing on her incentive spirometer. Having any right around 7. The rest of the labs look good. She is clinically stable. We will see only as needed. Time with Patient: Less than 30
[2017-09-12] MEDS: DOCUSATE 100 MG CAP PO SCH ×2 (10:21→21:40)
[2017-09-12] MEDS: ALPRAZolam 1 MG TAB PO PRN (10:21)
--- NOTE | 2017-09-12 12:06 | P.PN ---
Subjective Progress Note Date: 09/12/17 Patient seen and examined at bedside. States she is feeling sad today. Pain is improved today. She denies any nausea and vomiting. She does not like the flavor of the hospital food. She is having flatus. She has not ambulated. Objective - Vital Signs Vital signs: Vital Signs Temp 99.6 F 09/12/17 08:07 Pulse 95 09/12/17 08:07 Resp 18 09/12/17 08:07 BP 124/81 09/12/17 08:07 Pulse Ox 96 09/12/17 08:07 Intake & Output 09/11/17 09/12/17 09/12/17 18:59 06:59 18:59 Intake Total 650 1180 Output Total 725 75 Balance -75 1105 Weight 98 kg Intake: IV 650 Lactated Ringers 1,000 ml 650 @ 50 mls/hr IV .Q20H [facility] Rx#:[id number] Intake, IV Titration 100 Amount ACETAMINOPHEN IV (For NPO 100 ) 1,000 mg In Empty Bag 1 bag @ 400 mls/hr IVPB Q6HR [facility] Rx#:[id number] Oral 1080 Output: Drainage 200 75 Abdomen 200 75 Urine 525 Other: Voiding Method Indwelling Catheter Toilet Toilet # Voids 3 # Bowel Movements 0 0 - Constitutional General appearance: Present: cooperative, no acute distress - EENT ENT: Present: hearing grossly normal - Respiratory Details: No difficulty with respiration - Gastrointestinal Gastrointestinal Comment(s): Soft, appropriate tenderness, nondistended, no rebound, no guarding, DION drain in place with serosanguineous output, midline incision site clean, dry and intact with jolie in place. - Musculoskeletal Musculoskeletal: Present: generalized weakness - Psychiatric Psychiatric: Present: A&O x's 3 - Labs CBC & Chem 7: 09/12/17 06:49 09/12/17 06:49 Labs: Abnormal Lab Results - Last 24 Hours (Table) 09/11/17 09/12/17 Range/Units 15:01 06:49 WBC 19.2 H 19.5 H (3.8-10.6) k/uL RBC 3.13 L 3.13 L (3.80-5.40) m/uL Hgb 7.0 L* 7.0 L* (11.4-16.0) gm/dL Hct 23.3 L 23.4 L (34.0-46.0) % MCV 74.5 L 74.8 L (80.0-100.0) fL MCH 22.3 L 22.2 L (25.0-35.0) pg MCHC 29.9 L 29.7 L (31.0-37.0) g/dL RDW 19.1 H 18.9 H (11.5-15.5) % Neutrophils # 15.7 H (1.3-7.7) k/uL Neutrophils # (Manual) 16.38 H (1.3-7.7) k/uL Nucleated RBCs 10 H (0-0) /100 WBC Microbiology - Last 24 Hours (Table) 09/09/17 22:35 Urine Culture - Final Urine,Catheterized Assessment and Plan (1) Splenic rupture Narrative/Plan: 47-year-old female status post exploratory laparotomy with splenectomy for spontaneous splenic rupture - Hemoglobin has consistently remained at 7.0, plan to redraw hemoglobin at noon , decision for any transfusion to be made after redraw - Increase activity, I discussed ambulating in the importance of ambulating with the patient. She is agreeable to begin ambulating. - Continue regular diet - Continue to monitor DION drain output - Encouraged incentive spirometry - Due to splenectomy, the patient will require appropriate vaccinations. I discussed the case with infectious disease and Dr. Weller. He will prescribed the appropriate vaccinations. - Progressing slowly - Discharge planning Current Visit: Yes Status: Acute Code(s): S36.09XA - OTHER INJURY OF SPLEEN , INITIAL ENCOUNTER SNOMED Code(s): 936982427
[2017-09-12] MEDS: ACETAMINOPHEN TAB 325 MG TAB PO PRN (13:24)
[2017-09-12] MEDS: HYDROcodone/APAP 5-325MG 1 EACH TAB PO PRN (14:12)
[2017-09-12 14:21] LABS: Anisocytosis Slight; HCT 22.4 % (34.0-46.0); Hypochromasia Marked; MCH 22.9 pg (25.0-35.0); MCV 73.6 fL (80.0-100.0); Mean Platelet Volume 8.2; Microcytosis Moderate; Platelet Count 328 k/uL (150-450); Poikilocytosis Moderate; RBC 3.04 m/uL (3.80-5.40); RDW 19.8 % (11.5-15.5); WBC 24.3 k/uL (3.8-10.6)
--- NOTE | 2017-09-12 15:22 | PN ---
PROGRESS NOTE DATE OF SERVICE: 09/12/2017 This is a 47-year-old woman who was admitted with a splenic rupture, had surgery. The patient improved significantly. Patient complains of abdominal tightness. No chest pain. No palpitations. No fever. Surgery and Pulmonary are following the patient closely. PHYSICAL EXAM: Alert and oriented x3. Pulse 95, blood pressure 125/81, respiration 18, temperature 98.6, pulse ox 98% on room air. HEENT: Conjunctivae normal. NECK: No jugular venous distension. CARDIOVASCULAR: S1, S2, muffled. RESPIRATION: Breath sounds diminished at the bases, no rhonchi, no crackles. ABDOMEN: Soft, status post surgery. LEGS: No edema, no swelling. LABS: Hemoglobin 7, white count is 19.5. ASSESSMENT: 1. Spontaneous splenic rupture, status post exploratory laparotomy, splenectomy. 2. Hypertension with hypovolemia, acute blood loss secondary to splenic rupture. 3. Blood-loss anemia, acute. 4. History of hypothyroidism. 5. Depression, anxiety. 6. Morbid obesity. 7. Hypomagnesemia. 8. Hypocalcemia. 9. Increased WBC. RECOMMENDATION: Recommend to continue with the current medical management, continue with the symptomatic treatment and monitor hemoglobin closely. Guarded prognosis because of multiple complex medical issues. Further recommendations to follow. MMODL / IJN: [id number] /
[2017-09-12] MEDS: ESCITALOPRAM 10 MG TAB PO SCH (21:40)
[2017-09-13] MEDS: HEPARIN SODIUM,PORCINE 5,000 UNIT/ML 1 ML VIAL SQ SCH ×3 (00:12→15:43)
[2017-09-13] MEDS: ACETAMINOPHEN TAB 325 MG TAB PO PRN ×2 (04:22→20:57)
[2017-09-13] MEDS: LACTATED RINGERS 1,000 ML IV SCH (04:24)
--- NOTE | 2017-09-13 06:11 | CONS ---
CONSULTATION DATE OF SERVICE: 09/12/2017. REASON FOR CONSULTATION: 1. Post splenectomy vaccination. 2. Leukocytosis. HISTORY OF PRESENT ILLNESS: The patient is a 47-year-old female presenting to the ER at [facility] on 09/09/2017 with a chief complaint of 3 days of abdominal pain. The patient's pain initially started in the right upper quadrant and subsequently did have pain in the right shoulder that subsequently shifted to the left side. Pain describing to be sharp that has gradually increased in intensity over the next 3 days to be almost 10/10. The patient felt lightheaded. Denies having significant nausea, vomiting. No abdominal pain or any diarrhea. The patient denied any history of any trauma, fall. With these symptoms, the patient presented to the [facility] ER. On arrival to the ER, the patient noticed to be hypotensive with systolic down to 58, 49. The patient did have a CT abdominal pelvis that was suspicious for a splenic rupture. Subsequently was seen by General Surgery. She was taken to the OR the same day. She did have exploratory laparotomy and underwent splenectomy. Patient has been in the hospital and remains to be afebrile, was initially in the ICU subsequently transferred to the general surgery floor. I was asked to see the patient for recommendation regarding post splenectomy vaccination. The patient did mention that she did have her childhood vaccination, but has not received any vaccination since then and does not get a flu vaccine every year. The patient's hemoglobin has been stable for the last 2 days down to about 7 and the white count has been elevated from 21.4 to 24.3 today, though no fever. Denies having any chest pain or shortness of breath or cough and no urinary symptoms. REVIEW OF SYSTEMS: CONSTITUTIONAL: Positive for weakness, but no high-grade fever. EYES: No complaint. ENT: No complaint. RESPIRATORY: No complaint. CARDIOVASCULAR: No complaint. GENITOURINARY: No complaint. GASTROINTESTINAL: As per HPI. MUSCULOSKELETAL: No complaint. INTEGUMENTARY: No complaint. PSYCHOLOGICAL: No complaint. ENDOCRINE: No complaint. NEUROLOGIC: No complaint. PAST MEDICAL HISTORY: Hypothyroidism, ovarian cyst, depression. PAST SURGICAL HISTORY: No surgeries. SOCIAL HISTORY: Current everyday smoker. Denies any drinking or drug use. FAMILY HISTORY: No pertinent findings noticed. ALLERGIES: Allergies to PENICILLIN, no history of anaphylaxis. MEDICATION: Medications include the patient currently on Tylenol, [place], DuoNeb, Xanax, Cepacol lozenges, Tums, Colace, Lexapro, heparin, hydralazine, Dilaudid, lactated Ringer, Synthroid, Narcan, Zofran, Protonix. PHYSICAL EXAMINATION: On examination, blood pressure is 132/78 with a pulse of 78, temperature 99.4. She is 90% on room air. General description is a middle aged female, lying in bed, in no distress. HEENT examination shows slight pallor. No scleral icterus. Oral mucous membrane is moist. No pharyngeal erythema or thrush. NECK: Trachea central. No thyromegaly. LUNGS: Unlabored breathing, decreased breath sounds at the bases. No wheeze. HEART: S1, S2. Regular rate and rhythm. ABDOMEN: Soft, mildly distended. Slight tender to touch. No guarding or rigidity. EXTREMITIES: No edema of feet. SKIN EXAMINATION: No rash or mass palpable. NEUROLOGICAL: Patient is awake, alert, oriented x3. Mood and affect normal. LABS: Hemoglobin 7, white count 24.3. BUN of 8, creatinine 0.58. Electrolytes have been normal. Urine culture negative. No blood culture done. DIAGNOSTIC IMPRESSION AND PLAN: 1. Patient was admitted to the hospital with abdominal pain. He did have spontaneous rupture of the spleen, status post splenectomy. The patient did have childhood vaccination,but no vaccination since then. The patient will need a vaccination for meningococcal, pneumococcal and Haemophilus influenzae B to prevent sepsis related to the . 2. Patient with leukocytosis, more likely post splenectomy as there is no evidence of any peritoneal infection at this point. PLAN: 1. We will recommend Menactra 2 doses 2 months apart, day 14 of her splenectomy. She will also receive pneumococcal PCV13 followed by PPSV23 two months later that will be given first dose day 14 of her splenectomy. She will also receive Hib conjugate vaccine vaccine to be given on day 14 of her postsplenectomy. 2. The patient will be monitored closely. If any fever or any worse in the white count, she will be re-cultured before starting on an antibiotic therapy; however, currently clinical suspicion for any infection will hold on any systemic antibiotic. MMODL / IJN: [id number] /
[2017-09-13] MEDS: LEVOTHYROXINE 112 MCG TAB PO SCH (06:28)
[2017-09-13 07:04] LABS: Anisocytosis Slight; HCT 21.2 % (34.0-46.0); Hypochromasia Marked; MCV 73.5 fL (80.0-100.0); Mean Platelet Volume 7.1; Microcytosis Moderate; Platelet Count 331 k/uL (150-450); Poikilocytosis Moderate; RBC 2.88 m/uL (3.80-5.40); RDW 19.2 % (11.5-15.5)
[2017-09-13 07:17] LABS: Anion Gap 9 mmol/L; Blood Urea Nitrogen 6 mg/dL (7-17); Carbon Dioxide 25 mmol/L (22-30); Chloride 105 mmol/L (98-107); Glucose 97 mg/dL (74-99); Potassium 3.4 mmol/L (3.5-5.1); Sodium 139 mmol/L (137-145)
[2017-09-13 07:31] LABS: HGB 6.3 gm/dL (11.4-16.0)
[2017-09-13] MEDS ORDERED: POTASSIUM CHLORIDE ER 20 MEQ TAB.ER PO STA ×2 (07:59→15:34)
[2017-09-13] MEDS: DOCUSATE 100 MG CAP PO SCH ×2 (08:42→20:57)
[2017-09-13] MEDS: PANTOPRAZOLE 40 MG/10 ML VIAL IV SCH ×2 (08:42→20:58)
[2017-09-13] MEDS: ALPRAZolam 1 MG TAB PO PRN (08:44)
[2017-09-13 09:20] LABS: Eosinophils # (M) 0.22 k/uL (0-0.7); Monocytes # (M) 1.76 k/uL (0-1.0); Neutrophils # (M) 18.04 k/uL (1.3-7.7); Neutrophils % (M) 82 %; Nucleated Red Blood Cells 6 /100 WBC (0-0); Total Cells Counted 200
[2017-09-13 09:21] LABS: Polychromasia Present
--- NOTE | 2017-09-13 09:41 | P.PN ---
Subjective Progress Note Date: 09/13/17 Patient seen and examined at bedside. No acute events overnight. Abdominal pain is improving. DION drain is still in place with serous output. Hemoglobin was 6.3 this morning. Objective - Vital Signs Vital signs: Vital Signs Temp 100.0 F H 09/13/17 00:00 Pulse 98 09/13/17 00:00 Resp 18 09/13/17 00:00 BP 121/69 09/13/17 00:00 Pulse Ox 93 L 09/13/17 08:13 Intake & Output 09/12/17 09/13/17 09/13/17 18:59 06:59 18:59 Intake Total 600 840 Output Total 180 95 Balance 420 840 -95 Weight 98 kg 98 kg Intake: IV 350 600 Lactated Ringers 1,000 ml 350 600 @ 50 mls/hr IV .Q20H MONIQUE Rx#:[id number] Oral 250 240 Output: Drainage 180 95 Abdomen 180 95 Other: Voiding Method Toilet Toilet # Voids 2 2 - Constitutional General appearance: Present: cooperative - Respiratory Details: No difficulty with respiration - Gastrointestinal Gastrointestinal Comment(s): Soft, appropriate tenderness, nondistended, no rebound, no guarding, DION drain in place - Psychiatric Psychiatric: Present: A&O x's 3 - Labs CBC & Chem 7: 09/13/17 06:48 09/13/17 06:48 Labs: Abnormal Lab Results - Last 24 Hours (Table) 09/12/17 09/13/17 09/13/17 Range/Units 12:47 06:48 06:48 WBC 24.3 H 22.0 H (3.8-10.6) k/uL RBC 3.04 L 2.88 L (3.80-5.40) m/uL Hgb 7.0 L* 6.3 L* (11.4-16.0) gm/dL Hct 22.4 L 21.2 L (34.0-46.0) % MCV 73.6 L 73.5 L (80.0-100.0) fL MCH 22.9 L 22.0 L (25.0-35.0) pg MCHC 30.0 L (31.0-37.0) g/dL RDW 19.8 H 19.2 H (11.5-15.5) % Neutrophils # (Manual) 18.04 H (1.3-7.7) k/uL Monocytes # (Manual) 1.76 H (0-1.0) k/uL Nucleated RBCs 6 H (0-0) /100 WBC Potassium 3.4 L (3.5-5.1) mmol/L BUN 6 L (7-17) mg/dL Calcium 8.0 L (8.4-10.2) mg/dL Assessment and Plan (1) Splenic rupture Narrative/Plan: 47-year-old female status post exploratory laparotomy with splenectomy for spontaneous splenic rupture - Hemoglobin has resulted at 6.3 today. The patient is not showing any signs of hemorrhagic blood loss with no tachycardia and no hypotension. We will provide one unit of packed red blood cells. - Increase activity, I discussed ambulating in the importance of ambulating with the patient. She is agreeable to begin ambulating. - Continue regular diet - Continue to monitor DION drain output - Encouraged incentive spirometry - Due to splenectomy, the patient will require appropriate vaccinations. I discussed the case with infectious disease and Dr. Weller. He will prescribed the appropriate vaccinations. - Leukocytosis is likely secondary to splenectomy. No obvious active infection. No plan for antibiotics at this time. - Progressing slowly - Discharge planning Current Visit: Yes Status: Acute Code(s): S36.09XA - OTHER INJURY OF SPLEEN , INITIAL ENCOUNTER SNOMED Code(s): 854629682
[2017-09-13] MEDS: HYDROcodone/APAP 5-325MG 1 EACH TAB PO PRN ×3 (10:03→19:56)
[2017-09-13] MEDS ORDERED: HYDROmorphone 2 MG TAB PO PRN (11:13)
--- NOTE | 2017-09-13 12:19 | XR ---
EXAMINATION TYPE: XR chest 1V portable DATE OF EXAM: 09/13/2017 COMPARISON: Prior chest x-ray 09/10/2017 HISTORY: Abnormal chest x-ray, fever, pneumonia TECHNIQUE: Single frontal view of the chest is obtained. FINDINGS: Heart size is within the lumen of normal although the patient is rotated which makes accen tuate the appearance. Patchy bibasilar densities present. There is no evident pneumothorax or pleural effusion. Pulmonary vascularity and ginette not significantly changed. IMPRESSION: Basilar atelectasis, correlate to exclude pneumonia. Borderline cardiomegaly.
[2017-09-13 12:24] LABS: Albumin 2.4 g/dL (3.5-5.0); Bilirubin, Delta 0.2 mg/dL (0.0-0.2); Total Bilirubin 0.2 mg/dL (0.2-1.3); Total Protein 4.6 g/dL (6.3-8.2)
[2017-09-13 12:38] LABS: C Reactive Protein 202.9 mg/L (<10.0)
[2017-09-13] MEDS: ALPRAZolam 0.25 MG TAB PO SCH (14:00)
[2017-09-13 16:26] LABS: HCT 23.8 % (34.0-46.0); HGB 7.6 gm/dL (11.4-16.0); MCH 23.9 pg (25.0-35.0); MCHC 31.9 g/dL (31.0-37.0); MCV 75.1 fL (80.0-100.0); RBC 3.17 m/uL (3.80-5.40)
[2017-09-13 16:27] LABS: Anisocytosis Slight; Hypochromasia Marked; Mean Platelet Volume 9.3; Microcytosis Moderate; Platelet Count 349 k/uL (150-450); Poikilocytosis Moderate; RDW 19.7 % (11.5-15.5)
[2017-09-13 16:29] LABS: Partial Thromboplastin Time 25.5 sec (22.0-30.0); Prothrombin Time 9.9 sec (9.0-12.0)
[2017-09-13 16:33] LABS: WBC 25.9 k/uL (3.8-10.6)
--- NOTE | 2017-09-13 18:05 | PN ---
PROGRESS NOTE DATE OF SERVICE: 09/13/2017. INTERVAL HISTORY: This 47-year-old woman was admitted with spontaneous splenic rupture, also has anemia. Patient at this time. Surgery Dr. Lopez as well as Infectious Disease following the patient closely. Patient had one spike of fever last night. The chest x- ray showed some atelectasis. PAST MEDICAL HISTORY: Reviewed. REVIEW OF SYSTEMS: CARDIOVASCULAR: No angina or palpitations. Respiratory: As mentioned earlier. GI: No nausea or vomiting. : No dysuria. Central nervous system: No numbness or weakness. CURRENT MEDICATIONS: 1. Tylenol 650 q.6h p.r.n. 2. [place] 5 mg. 3. DuoNeb q.i.d. p.r.n. 4. Xanax 0.5 q.i.d. 5. Depakote. 6. Tums. 7. Colace 100 mg b.i.d. 8. Lexapro 10 mg p.o. daily. 9. Heparin 5000 subcu q.i.d. 10.Apresoline 10 mg IV q.6 hours. 11.Dilaudid p.o. p.r.n. 12.Lactated Ringer's. 13.Synthroid. 14.Narcan. 15.Zofran. 16.Protonix. PHYSICAL EXAM: VITAL SIGNS: Patient is alert, and oriented x3. The pulse is 76, blood pressure 124/60, respiration 20, temperature 99.1, pulse ox 98% on room air. HEENT: Conjunctivae normal. Oral mucosa moist. NECK: No jugular venous distention. No carotid bruit. No lymph node enlargement. CARDIOVASCULAR: S1, S2. No S3, no S4. RESPIRATORY: Breath sounds diminished in the bases. Bilateral scattered rhonchi and expiratory wheezing and crackles. ABDOMEN: Soft, status post surgery. No guarding. No rigidity. No mass palpable. LEGS: No edema, no swelling. NERVOUS SYSTEM: Higher functions as mentioned earlier. Moves all four limbs. LYMPHATICS: No lymph nodes palpable in the neck, axillae or groin. SKIN: No ulcer, rash or bleeding. LABS: At this time shows WBC 20, hemoglobin 6.3, and platelets of 331 and potassium 3.4, albumin is 2.4. ASSESSMENT: 1. Spontaneous splenic rupture, status post laparotomy and splenectomy. 2. Hypotension and hypovolemia, possibly secondary to acute blood loss and secondary to splenic rupture. 3. Blood-loss anemia, acute secondary to splenic flexure, multifactorial, status post transfusion. 4. Hypothyroidism. 5. Depression, anxiety. 6. Morbid obesity. 7. Hypomagnesemia. 8. Hypocalcemia. 9. Increased WBC. RECOMMENDATIONS AND DISCUSSION: Recommend to continue current medications, continue to monitor, symptomatic treatment. Otherwise at this time I recommend continue with current medications. ESR and CRP is elevated. I would also recommend Hematology/Oncology consultation. Discussed with Dr. Lopez from surgery and if the patient continues to have pain asymptomatic, we will order a CT scan of the abdomen to ensure stability. Otherwise 1 unit transfusion has been arranged. Continue the rest of the medications including DVT prophylaxis. I would also check a set of coags also. MMODL / IJN: [id number] / MTDD
[2017-09-13 19:33] LABS: EBV-VCA (IgG) >8.0 AI
[2017-09-13] MEDS: IPRATROPIUM-ALBUTEROL 3 ML NEB INHALATION SCH (19:56)
[2017-09-13 20:00] LABS: Amorphous Sediment,Urine Rare /hpf; Cellular Casts,Urine 132 /lpf (0); Mucus,Urine Few /hpf; RBC,Urine >182 /hpf (0-5); Squamous Epithelial Cell,Urine 15 /hpf (0-4); WBC,Urine >182 /hpf (0-5)
[2017-09-13 20:02] LABS: Appearance,Urine Bloody (Clear); Color,Urine Dark Red
[2017-09-13] MEDS: ESCITALOPRAM 10 MG TAB PO SCH (20:57)
--- NOTE | 2017-09-13 21:11 | PN ---
PROGRESS NOTE DATE OF SERVICE: 09/13/2017. REASON FOR FOLLOWUP: 1. Post splenectomy. 2. Leukocytosis. INTERVAL HISTORY: The patient is afebrile. She is feeling better. Breathing comfortably. Denies any significant chest pain or cough. Does have some left-sided abdominal pain though. No change compared to yesterday. No worsening. No nausea, vomiting or diarrhea. EXAMINATION: Blood pressure 140/72 with a pulse of 82, temperature of 99.5. She is 92% on 2 L nasal cannula. General description is a middle aged female lying in bed in no distress. Respiratory system: Unlabored breathing, clear to auscultation anteriorly. Heart S1, S2. Regular rate and rhythm. Abdomen: Soft. Mild tenderness. LABS: White count 22,000. It was yesterday. DIAGNOSTIC IMPRESSION AND PLAN: Patient with spontaneous rupture of the spleen status post splenectomy for which the patient is currently being managed by surgical team. The patient did have elevated white count, more likely post no obvious evidence of any infection. Continue to monitor closely. She will need pneumococcal influenza surgery. Continue supportive care. MMODL / IJN: [id number] /
[2017-09-13] MEDS: cefTRIAXone IN SWFI 1,000 MG/10 ML SYRINGE IVP SCH (22:47)
[2017-09-14] MEDS: ALPRAZolam 0.25 MG TAB PO SCH ×6 (04:44→22:08)
[2017-09-14 07:26] LABS: Anisocytosis Slight; HCT 26.1 % (34.0-46.0); HGB 7.9 gm/dL (11.4-16.0); Hypochromasia Marked; MCHC 30.1 g/dL (31.0-37.0); MCV 76.5 fL (80.0-100.0); Microcytosis Moderate; Platelet Count 386 k/uL (150-450); Poikilocytosis Marked; RBC 3.41 m/uL (3.80-5.40); RDW 18.9 % (11.5-15.5)
[2017-09-14 07:31] LABS: Anion Gap 10 mmol/L; Blood Urea Nitrogen 7 mg/dL (7-17); Calcium 8.2 mg/dL (8.4-10.2); Carbon Dioxide 27 mmol/L (22-30); Chloride 105 mmol/L (98-107); Glucose 84 mg/dL (74-99); Potassium 4.1 mmol/L (3.5-5.1); Sodium 142 mmol/L (137-145)
[2017-09-14] MEDS: LEVOTHYROXINE 112 MCG TAB PO SCH (07:46)
[2017-09-14] MEDS: IPRATROPIUM-ALBUTEROL 3 ML NEB INHALATION SCH ×3 (07:56→20:14)
[2017-09-14] MEDS ORDERED: RX INFO: IV CONTRAST WAS GIVEN 1 EACH MISC MISCELLANE PRN (07:56)
--- NOTE | 2017-09-14 08:40 | P.PN ---
Subjective Progress Note Date: 09/14/17 Patient seen and examined at bedside. She states that she feels much better today. Abdominal pain has decreased. She is ambulating. She is tolerating a diet. She did receive 1 unit of packed red blood cells yesterday and hemoglobin responded appropriately. She did have 2 febrile episodes overnight. Objective - Vital Signs Vital signs: Vital Signs Temp 99.9 F H 09/14/17 07:14 Pulse 82 09/14/17 07:14 Resp 16 09/14/17 07:14 BP 140/65 09/14/17 07:14 Pulse Ox 90 L 09/14/17 07:14 Intake & Output 09/13/17 09/14/17 09/14/17 18:59 06:59 18:59 Intake Total 1657 1200 Output Total 205 140 40 Balance 1452 1060 -40 Intake: IV 400 Lactated Ringers 1,000 ml 400 @ 50 mls/hr IV .Q20H MONIQUE Rx#:[id number] Oral 637 1200 Blood Product 620 Rc As-1 Unit 310 [id number] Output: Drainage 205 140 40 Abdomen 205 140 40 Other: Voiding Method Toilet Toilet # Voids 2 1 # Bowel Movements 0 - Constitutional General appearance: Present: cooperative - EENT ENT: Present: hearing grossly normal - Respiratory Details: No difficulty with respiration - Gastrointestinal Gastrointestinal Comment(s): Soft, appropriate tenderness, nondistended, no rebound, no guarding, midline incision site clean, dry and intact with jolie in place - Psychiatric Psychiatric: Present: A&O x's 3 - Labs CBC & Chem 7: 09/14/17 06:17 09/14/17 06:17 Labs: Abnormal Lab Results - Last 24 Hours (Table) 09/13/17 09/13/17 09/13/17 Range/Units 06:48 06:48 06:48 WBC 22.0 H (3.8-10.6) k/uL RBC (3.80-5.40) m/uL Hgb (11.4-16.0) gm/dL Hct (34.0-46.0) % MCV (80.0-100.0) fL MCH (25.0-35.0) pg MCHC (31.0-37.0) g/dL RDW (11.5-15.5) % Neutrophils # (Manual) 18.04 H (1.3-7.7) k/uL Monocytes # (Manual) 1.76 H (0-1.0) k/uL Nucleated RBCs 6 H (0-0) /100 WBC ESR 60 H (0-20) mm/hr Calcium (8.4-10.2) mg/dL C-Reactive Protein 202.9 H (<10.0) mg/L Total Protein 4.6 L (6.3-8.2) g/dL Albumin 2.4 L (3.5-5.0) g/dL Urine Appearance (Clear) Urine RBC (0-5) /hpf Urine WBC (0-5) /hpf Ur Squamous Epith Cells (0-4) /hpf Amorphous Sediment (None) /hpf Urine Mucus (None) /hpf EBV Capsid Ag IgG Intrp (NEGATIVE) EBV Nuc Ag IgG Interp (NEGATIVE) Crossmatch 09/13/17 09/13/17 09/13/17 Range/Units 06:48 08:11 16:00 WBC 25.9 H* (3.8-10.6) k/uL RBC 3.17 L (3.80-5.40) m/uL Hgb 7.6 L (11.4-16.0) gm/dL Hct 23.8 L (34.0-46.0) % MCV 75.1 L (80.0-100.0) fL MCH 23.9 L (25.0-35.0) pg MCHC (31.0-37.0) g/dL RDW 19.7 H (11.5-15.5) % Neutrophils # (Manual) (1.3-7.7) k/uL Monocytes # (Manual) (0-1.0) k/uL Nucleated RBCs (0-0) /100 WBC ESR (0-20) mm/hr Calcium (8.4-10.2) mg/dL C-Reactive Protein (<10.0) mg/L Total Protein (6.3-8.2) g/dL Albumin (3.5-5.0) g/dL Urine Appearance (Clear) Urine RBC (0-5) /hpf Urine WBC (0-5) /hpf Ur Squamous Epith Cells (0-4) /hpf Amorphous Sediment (None) /hpf Urine Mucus (None) /hpf EBV Capsid Ag IgG Intrp POSITIVE H (NEGATIVE) EBV Nuc Ag IgG Interp Equivocal H (NEGATIVE) Crossmatch See Detail 09/13/17 09/14/17 09/14/17 Range/Units 19:40 06:17 06:17 WBC 29.8 H* (3.8-10.6) k/uL RBC 3.41 L (3.80-5.40) m/uL Hgb 7.9 L (11.4-16.0) gm/dL Hct 26.1 L (34.0-46.0) % MCV 76.5 L (80.0-100.0) fL MCH 23.0 L (25.0-35.0) pg MCHC 30.1 L (31.0-37.0) g/dL RDW 18.9 H (11.5-15.5) % Neutrophils # (Manual) (1.3-7.7) k/uL Monocytes # (Manual) (0-1.0) k/uL Nucleated RBCs (0-0) /100 WBC ESR (0-20) mm/hr Calcium 8.2 L (8.4-10.2) mg/dL C-Reactive Protein (<10.0) mg/L Total Protein (6.3-8.2) g/dL Albumin (3.5-5.0) g/dL Urine Appearance Bloody H (Clear) Urine RBC >182 H (0-5) /hpf Urine WBC >182 H (0-5) /hpf Ur Squamous Epith Cells 15 H (0-4) /hpf Amorphous Sediment Rare H (None) /hpf Urine Mucus Few H (None) /hpf EBV Capsid Ag IgG Intrp (NEGATIVE) EBV Nuc Ag IgG Interp (NEGATIVE) Crossmatch Assessment and Plan (1) Splenic rupture Narrative/Plan: 47-year-old female status post exploratory laparotomy with splenectomy for spontaneous splenic rupture - Hemoglobin 7.9 this a.m. - Continue regular diet - Continue to monitor DION drain output - Encouraged incentive spirometry - Due to splenectomy, the patient will require appropriate vaccinations. I discussed the case with infectious disease and Dr. Weller. He will prescribed the appropriate vaccinations. - The patient did have febrile episodes overnight. Due to this finding we will obtain a CT of the abdomen and pelvis. Leukocytosis is still present, this is common after splenectomy however we will rule out any infectious source. Infectious disease is involved in the case. - Progressing slowly Current Visit: Yes Status: Acute Code(s): S36.09XA - OTHER INJURY OF SPLEEN , INITIAL ENCOUNTER SNOMED Code(s): 829801111
[2017-09-14 08:55] LABS: Neutrophils % (M) 77 %; Nucleated Red Blood Cells 30 /100 WBC (0-0); Total Cells Counted 200
[2017-09-14 08:56] LABS: Eosinophils # (M) 0.69 k/uL (0-0.7); Lymphocytes # (M) 2.52 k/uL (1.0-4.8); Monocytes # (M) 2.29 k/uL (0-1.0); Neutrophils # (M) 17.63 k/uL (1.3-7.7); WBC 22.9 k/uL (3.8-10.6)
[2017-09-14 08:57] LABS: Large Platelets Present
[2017-09-14 08:58] LABS: Polychromasia Present
[2017-09-14] MEDS: DOCUSATE 100 MG CAP PO SCH ×2 (09:40→22:09)
[2017-09-14] MEDS: ACETAMINOPHEN TAB 325 MG TAB PO PRN ×2 (09:40→18:09)
[2017-09-14] MEDS: HEPARIN SODIUM,PORCINE 5,000 UNIT/ML 1 ML VIAL SQ SCH ×4 (09:42→22:08)
[2017-09-14] MEDS: SODIUM CHLORIDE 0.9% 1,000 ML IV SCH ×3 (09:43→18:06)
[2017-09-14] MEDS: PANTOPRAZOLE 40 MG/10 ML VIAL IV SCH (09:45)
--- NOTE | 2017-09-14 10:50 | CT ---
EXAMINATION TYPE: CT abdomen pelvis w con DATE OF EXAM: 09/14/2017 HISTORY: S/P Splenectomy, pain, elevated temp CT DLP: 1648.2mGycm Automated Exposure Control for Dose Reduction was Utilized. CONTRAST: CT scan of the abdomen and pelvis is performed with IV Contrast, patient injected with 100 mL of Isov ue 300. COMPARISON: None. FINDINGS: LUNG BASES: There is bibasilar atelectasis and trace pleural effusion on the right with subpleural fa t on the left. LIVER/GB: Geographic hypoattenuation of the hepatic parenchyma likely represents hepatic steatosis wi th areas of focal fatty sparing. PANCREAS: No significant abnormality is seen. SPLEEN: There is inflammatory fat stranding in the postsurgical splenectomy bed. No fluid collection is seen surrounding the surgical sutures. Left upper quadrant surgical drain terminates in the latera l conal fascia lateral to the renal cortex. Inflammatory fat stranding of the ventral abdominal wall anterior to the liver and greater curvature the stomach along the site of surgical intervention and l ikely relate to the recent surgical intervention. Midline vertically oriented skin jolie are presen t without inflammatory change of the subcutaneous fat. Mild anasarca is noted. ADRENALS: No significant abnormality is seen. KIDNEYS: No significant abnormality is seen. BOWEL: Numerous loops of small bowel containing air-fluid levels and are mildly dilated measuring up to 7 cm. Air is seen throughout the bowel including the colon. High density within the right hemicolo n may relate to residual retained contrast or surgical sutures although not seen on the prior. UTERUS/ADNEXA: Heterogenous enlarged multilobulated uterus is redemonstrated with cystic left ovarian lesion again seen measuring approximately 3.3 cm, unchanged from the prior. Endometrium is not visua lized secondary to the multiple masses. Fluid attenuation is noted along the left gonadal vein that c ould relate to surrounding edema from internal thrombosis or less likely adenopathy. This is unchange d. LYMPH NODES: No greater than 1cm abdominal or pelvic lymph nodes are appreciated. OSSEOUS STRUCTURES: Scattered punctate sclerotic foci most commonly represent bone islands. Osseous s tructures appear intact. OTHER: No significant additional abnormality is seen. IMPRESSION: 1. No abnormal fluid collection to suggest abscess within the splenic surgical bed. Postsurgical sterling ges of inflammatory fat stranding within the ventral mesentery and splenic surgical bed. 2. Mildly dilated fluid-filled loops of small bowel likely representing postsurgical ileus. No transi tion point. 3. Bibasilar subsegmental atelectasis. 4. Multifocal fluid attenuation surrounding the left gonadal vein that could relate to edema from thr ombosis of the gonadal vein or less likely adenopathy. 5. Heterogenous and multilobulated uterus most likely represents a fibroid uterus although the endome trial thickness cannot be delineated given the diffuse heterogeneity.
[2017-09-14] MEDS ORDERED: MAGNESIUM CITRATE 296 ML BOTTLE PO ONE (12:00)
[2017-09-14 13:07] VITALS: BMI 42.7
[2017-09-14] MEDS: CEFEPIME 2 GM in SODIUM CHLORIDE 0.9% 50 ML IVPB SCH ×2 (15:10→20:38)
--- NOTE | 2017-09-14 16:06 | P.CONS ---
History of Present Illness - Reason for Consult Consult date: 09/14/17 Spontaneous splenic rupture. Anemia - History of Present Illness The patient is a 47-year-old lady, in generally good health. The patient presented to the ER on 08/25/17, complaining of abdominal pain. She had a computed tomography scan at that time, revealing a uterine fibroid and ovarian cyst. Pelvic unsound confirmed the presence of multiple uterine fibroids. The patient was discharged with a plan for outpatient [employer] follow-up. She came back to the emergency room on 09/09/17. She states that she woke up with pain in her right shoulder. She subsequently developed pain in the right side of the abdomen migrating to the left side which progressively became more severe. Pain was increased by deep breathing. She had a CTA done which was negative for pulmonary embolism but revealed splenic rupture with hemorrhage. She was therefore admitted and underwent emergency splenectomy. She denied any trauma, or viral illness. There is no pre-existing history of malignancy, or chronic inflammation. Pathology on the spleen did not show any abnormal infiltrate or proliferation. Consult was therefore placed for further evaluation and recommendations Patient's hemoglobin on 08/25/17 was 10. It has since declined into the 7 range and subsequently in the 6 range where she was transfused. However the patient is currently having her menstrual cycle. Review of Systems Constitutional: Reports fever, Reports poor appetite, Reports weakness Eyes: denies blurred vision, denies pain Ears: deny: decreased hearing, ear discharge, earache, tinnitus Ears, nose, mouth and throat: Denies headache, Denies sore throat Cardiovascular: Reports chest pain, Reports palpitations Respiratory: Reports as per HPI Gastrointestinal: Reports abdominal pain Genitourinary: Denies dysuria, Denies hematuria Menstruation: Reports currently menstrual, Reports period heavy Musculoskeletal: Denies myalgias Integumentary: Denies pruritus, Denies rash Neurological: Denies numbness, Denies weakness Psychiatric: Denies anxiety, Denies depression Endocrine: Denies fatigue, Denies weight change Hematologic/Lymphatic: Reports as per HPI Past Medical History Past Medical History: Thyroid Disorder Additional Past Medical History / Comment(s): ovarian cyst and mass on uterus () History of Any Multi-Drug Resistant Organisms: None Reported Past Surgical History: No Surgical Hx Reported Past Anesthesia/Blood Transfusion Reactions: No Reported Reaction Past Psychological History: Depression Smoking Status: Current every day smoker Past Alcohol Use History: None Reported Past Drug Use History: None Reported - Past Family History Mother Family Medical History: Hypertension, Rheumatoid Arthritis (RA) Father Family Medical History: COPD, Myocardial Infarction (RI) Medications and Allergies Home Medications Medication Instructions Recorded Confirmed Type Escitalopram [Lexapro] 10 mg PO DAILY 08/25/17 09/09/17 History Levothyroxine Sodium [Synthroid] 112 mcg PO DAILY 08/25/17 09/09/17 History ALPRAZolam [Xanax XR] 1 mg PO DAILY 09/09/17 09/09/17 History Allergies Allergy/AdvReac Type Severity Reaction Status Date / Time Penicillins Allergy Unknown Verified 09/09/17 15:57 Childhood Physical Exam Vitals: Vital Signs Temp Pulse Resp BP Pulse Ox 09/14/17 14:30 99.5 F 85 16 138/61 93 L 09/14/17 07:14 99.9 F H 82 16 140/65 90 L 09/14/17 02:10 98.8 F 79 16 116/56 92 L 09/13/17 20:45 102.5 F H 09/13/17 19:05 101.2 F H 88 20 112/66 92 L Intake and Output 09/14/17 09/14/17 09/14/17 06:59 14:59 22:59 Intake Total 1200 2620 Output Total 100 40 Balance 1100 2580 Intake: IV 2500 Lactated Ringers 1,000 ml 2500 @ 50 mls/hr IV .Q20H [facility] Rx#:[id number] Oral 1200 120 Output: Drainage 100 40 Abdomen 100 40 Other: Voiding Method Toilet # Voids 1 2 # Bowel Movements 1 Weight 102.5 kg - Constitutional General appearance: no acute distress - EENT Eyes: EOMI, PERRLA ENT: hearing grossly normal, normal oropharynx - Neck Neck: no lymphadenopathy Thyroid: bilateral: normal size - Respiratory Respiratory: bilateral: diminished - Cardiovascular Rhythm: regular Heart sounds: normal: S1, S2 - Gastrointestinal General gastrointestinal: normal bowel sounds Localized gastrointestinal: tender: diffuse - Integumentary Integumentary: normal - Neurologic Neurologic: CNII-XII intact - Musculoskeletal Musculoskeletal: generalized weakness, strength equal bilaterally - Psychiatric Psychiatric: A&O x's 3, appropriate affect Results CBC & Chem 7: 09/14/17 06:17 09/14/17 06:17 Labs: Abnormal Lab Results - Last 24 Hours (Table) 09/13/17 09/13/17 09/13/17 Range/Units 06:48 16:00 19:40 WBC 25.9 H* (3.8-10.6) k/uL RBC 3.17 L (3.80-5.40) m/uL Hgb 7.6 L (11.4-16.0) gm/dL Hct 23.8 L (34.0-46.0) % MCV 75.1 L (80.0-100.0) fL MCH 23.9 L (25.0-35.0) pg MCHC (31.0-37.0) g/dL RDW 19.7 H (11.5-15.5) % Neutrophils # (Manual) (1.3-7.7) k/uL Monocytes # (Manual) (0-1.0) k/uL Nucleated RBCs (0-0) /100 WBC Calcium (8.4-10.2) mg/dL Urine Appearance Bloody H (Clear) Urine RBC >182 H (0-5) /hpf Urine WBC >182 H (0-5) /hpf Ur Squamous Epith Cells 15 H (0-4) /hpf Amorphous Sediment Rare H (None) /hpf Urine Mucus Few H (None) /hpf EBV Capsid Ag IgG Intrp POSITIVE H (NEGATIVE) EBV Nuc Ag IgG Interp Equivocal H (NEGATIVE) 09/14/17 09/14/17 Range/Units 06:17 06:17 WBC 22.9 H (3.8-10.6) k/uL RBC 3.41 L (3.80-5.40) m/uL Hgb 7.9 L (11.4-16.0) gm/dL Hct 26.1 L (34.0-46.0) % MCV 76.5 L (80.0-100.0) fL MCH 23.0 L (25.0-35.0) pg MCHC 30.1 L (31.0-37.0) g/dL RDW 18.9 H (11.5-15.5) % Neutrophils # (Manual) 17.63 H (1.3-7.7) k/uL Monocytes # (Manual) 2.29 H (0-1.0) k/uL Nucleated RBCs 30 H (0-0) /100 WBC Calcium 8.2 L (8.4-10.2) mg/dL Urine Appearance (Clear) Urine RBC (0-5) /hpf Urine WBC (0-5) /hpf Ur Squamous Epith Cells (0-4) /hpf Amorphous Sediment (None) /hpf Urine Mucus (None) /hpf EBV Capsid Ag IgG Intrp (NEGATIVE) EBV Nuc Ag IgG Interp (NEGATIVE) Chest x-ray: report reviewed Abdominal x-ray: report reviewed CT scan - abdomen: report reviewed CT scan - chest: report reviewed CT scan - pelvis: report reviewed US - abdomen: report reviewed Assessment and Plan (1) Splenic rupture Narrative/Plan: The patient is presenting with a splenic rupture that appears to be spontaneous. She has no known blood disorder or malignancy, or any kind of chronic inflammation. She denied any trauma or signs or symptoms of infection. Therefore consult was placed to rule out a primary hematology/oncology disorder. - Typically in spontaneous splenic rupture due to a primary Hem Onc disorder, there is usually an abnormal infiltrate in the spleen, or increased proliferation. The pathology on the resected spleen appears to show normal splenic tissue with rupture and hemorrhage. Therefore this reduces the possibility of this being related. - Defer to surgery and other consultants for postoperative care - CT scans of the abdomen and pelvis did not show any other adenopathy - I will check autoimmune markers and protein electrophoresis studies. I would recommend follow-up in the office in about 3-4 weeks with repeat CBC. Current Visit: Yes Status: Acute Code(s): S36.09XA - OTHER INJURY OF SPLEEN , INITIAL ENCOUNTER SNOMED Code(s): 367263182 (2) Anemia Narrative/Plan: This is multifactorial, due to ongoing menstruation, as well as blood loss of splenic rupture and surgery. Agree with transfusion to keep hemoglobin greater than 7. She will be given IV iron. As noted above, recommend follow-up in the office in about 3-4 weeks for repeat CBC. Current Visit: Yes Status: Acute Code(s): D64.9 - ANEMIA, UNSPECIFIED SNOMED Code(s): 563136477 (3) Leukocytosis Narrative/Plan: This appears to be reactive, due to inflammation as well as loss of the spleen. Again, this may followed up with repeat CBC in the office. If a suspicious abnormality persists, then additional workup including bone marrow will be considered Current Visit: Yes Status: Acute Code(s): D72.829 - ELEVATED WHITE BLOOD CELL COUNT, UNSPECIFIED SNOMED Code(s): 156110027
[2017-09-14] MEDS: HYDROcodone/APAP 5-325MG 1 EACH TAB PO PRN (16:21)
[2017-09-14] MEDS: metroNIDAZOLE-NS PMX 500 MG in SALINE 1 100ML.BAG IVPB SCH (16:48)
[2017-09-14] MEDS: SODIUM FERRIC GLUCONAT-SUCROSE 125 MG in SODIUM CHLORIDE 0.9% 100 ML IVPB SCH (17:59)
--- NOTE | 2017-09-14 18:00 | PN ---
PROGRESS NOTE DATE OF SERVICE: 09/14/2017 REASON FOR FOLLOWUP: New fever. INTERVAL HISTORY: The patient did spike a fever of 101.2 and 102.5 last night. Low-grade fever this morning of 99.5. Patient is currently breathing comfortably; very minimal cough, not bringing up any sputum. No chest pain. She did have some abdominal pain on the left side, though no worsening. No nausea, no vomiting and no urinary symptoms. PHYSICAL EXAMINATION: Blood pressure 138/61 with a pulse of 85, temperature of 99.5. She is 93% on room air. General description is a middle-aged female up in the bed in no distress. RESPIRATORY SYSTEM: Unlabored breathing with decreased breath sounds at the bases. No wheeze. HEART: S1, S2. Regular rate and rhythm. ABDOMEN: Soft. Mildly distended. No guarding or rigidity. LABS: Hemoglobin 7.9, white count 22.9 with a BUN of 7, creatinine 0.55. CT of abdomen and pelvis did show some inflammation in the splenic bed but no abscess. DIAGNOSTIC IMPRESSION AND PLAN: Patient with a new fever in a patient who did have a spontaneous rupture of the spleen, status post splenectomy except more likely . Clinically doubt pneumonia and urine. Patient did not have significant urinary symptoms. Patient's penicillin allergy was because her father almost from it. Clinically doubt true penicillin allergy. She will be started on cefepime 2 grams q.12 in addition to the Flagyl and watching her clinical course as well as cultures closely. Continue with supportive care. MMODL / IJN: [id number] /
[2017-09-14] MEDS: PANTOPRAZOLE 40 MG TABLET PO SCH (18:22)
--- NOTE | 2017-09-14 19:00 | PN ---
PROGRESS NOTE DATE OF SERVICE: 09/14/2017 This 47-year-old woman admitted after spontaneous splenic rupture is improving significantly. The hemoglobin is rather stable at this time. No chest pain. No palpitations. No fever. CT scan of the abdomen did not show any new fluid collection, either. No chest pain. No palpitation. On exam, alert and oriented x3. Pulse 85, blood pressure 138/61, respiration 16, temperature 99.5, pulse ox 93% on room air. HEENT: Conjunctivae normal. NECK: No jugular venous distention. CARDIOVASCULAR SYSTEM: S1, S2 muffled. RESPIRATORY SYSTEM: Breath sounds diminished at the bases. A few rhonchi. No crackles. ABDOMEN: Soft. Status post surgery. LEGS: No edema. No swelling. NERVOUS SYSTEM: No focal deficit. LABS: Hemoglobin 7.9. WBC 22.9. ASSESSMENT: 1. Spontaneous splenic rupture, status post laparotomy and splenectomy. 2. Hypotension, hypovolemia, possibly secondary to acute blood loss anemia as well as secondary to splenic rupture. 3. Acute blood loss anemia secondary to splenic rupture, multifactorial, status post transfusion. 4. Hypothyroidism. 5. Depression and anxiety. 6. Morbid obesity. 7. Hypomagnesemia. 8. Hypocalcemia. 9. Increased white count. RECOMMENDATIONS AND DISCUSSION: I recommend to continue current medication, continue symptomatic treatment. Continue with incentive spirometry. Monitor labs closely. Hematology/oncology evaluation. Guarded prognosis because of multiple complex medical issues. Further recommendations to follow. MMODL / IJN: [id number] /
[2017-09-14] MEDS: cefTRIAXone IN SWFI 1,000 MG/10 ML SYRINGE IVP SCH (20:39)
[2017-09-14] MEDS: ESCITALOPRAM 10 MG TAB PO SCH (22:08)
[2017-09-15] MEDS: metroNIDAZOLE-NS PMX 500 MG in SALINE 1 100ML.BAG IVPB SCH ×4 (00:15→23:00)
[2017-09-15] MEDS: SODIUM CHLORIDE 0.9% 1,000 ML IV SCH ×2 (03:28→16:38)
[2017-09-15] MEDS: ACETAMINOPHEN TAB 325 MG TAB PO PRN ×3 (04:56→19:09)
[2017-09-15] MEDS: BENZOCAINE/MENTHOL LOZENG 1 EACH LOZENGE MUCOUS MEM PRN ×2 (05:51→23:00)
[2017-09-15 07:32] LABS: Anisocytosis Slight; HCT 23.5 % (34.0-46.0); HGB 7.2 gm/dL (11.4-16.0); Hypochromasia Marked; MCH 22.8 pg (25.0-35.0); MCHC 30.4 g/dL (31.0-37.0); MCV 74.8 fL (80.0-100.0); Mean Platelet Volume 8.1; Microcytosis Moderate; Platelet Count 427 k/uL (150-450); Poikilocytosis Moderate; RBC 3.15 m/uL (3.80-5.40); RDW 19.7 % (11.5-15.5)
[2017-09-15] MEDS: IPRATROPIUM-ALBUTEROL 3 ML NEB INHALATION SCH ×3 (07:32→20:52)
[2017-09-15] MEDS: PANTOPRAZOLE 40 MG TABLET PO SCH ×2 (07:33→17:43)
[2017-09-15] MEDS: ALPRAZolam 0.25 MG TAB PO SCH ×4 (07:33→21:03)
[2017-09-15] MEDS: LEVOTHYROXINE 112 MCG TAB PO SCH (07:33)
[2017-09-15] MEDS: HEPARIN SODIUM,PORCINE 5,000 UNIT/ML 1 ML VIAL SQ SCH ×3 (07:43→23:00)
[2017-09-15 07:47] LABS: Anion Gap 9 mmol/L; Blood Urea Nitrogen 6 mg/dL (7-17); Calcium 7.9 mg/dL (8.4-10.2); Carbon Dioxide 26 mmol/L (22-30); Chloride 106 mmol/L (98-107); Glucose 81 mg/dL (74-99); Potassium 3.9 mmol/L (3.5-5.1); Sodium 141 mmol/L (137-145)
[2017-09-15 09:05] LABS: Band Neutrophils % 1 %; Basophils # (M) 0.21 k/uL (0-0.2); Eosinophils # (M) 0.84 k/uL (0-0.7); Lymphocytes # (M) 1.06 k/uL (1.0-4.8); Metamyelocytes # (M) 0.21 k/uL (0); Metamyelocytes % 1 %; Myelocytes # (M) 0.21 k/uL (0); Myelocytes % 1 %; Neutrophils % (M) 81 %; Nucleated Red Blood Cells 28 /100 WBC (0-0); Total Cells Counted 200; WBC 21.1 k/uL (3.8-10.6)
[2017-09-15 09:14] LABS: Large Platelets Present; Polychromasia Present
[2017-09-15] MEDS: CEFEPIME 2 GM in SODIUM CHLORIDE 0.9% 50 ML IVPB SCH ×2 (09:56→21:03)
[2017-09-15] MEDS: ONDANSETRON 4 MG/2 ML VIAL IVP PRN ×2 (09:56→17:23)
[2017-09-15 11:27] LABS: Rheumatoid Factor 10 IU/mL (0-15)
[2017-09-15] MEDS: SODIUM FERRIC GLUCONAT-SUCROSE 125 MG in SODIUM CHLORIDE 0.9% 100 ML IVPB SCH (11:41)
--- NOTE | 2017-09-15 11:47 | P.PN ---
Subjective Progress Note Date: 09/15/17 Patient is doing well overnight she's tolerating her diet she had very low- grade temperature 100.8. She denies any pain. Her DION is sero sang Objective - Vital Signs Vital signs: Vital Signs Temp 98.7 F 09/15/17 07:43 Pulse 80 09/15/17 07:44 Resp 16 09/15/17 07:43 BP 132/74 09/15/17 07:43 Pulse Ox 92 L 09/15/17 07:43 Intake & Output 09/14/17 09/15/17 09/15/17 18:59 06:59 18:59 Intake Total 2620 500 Output Total 40 80 Balance 2580 420 Weight 102.5 kg Intake: IV 2500 Lactated Ringers 1,000 ml 2500 @ 50 mls/hr IV .Q20H [facility] Rx#:[id number] Intake, IV Titration 500 Amount Cefepime 2 gm In Sodium 100 Chloride 0.9% 50 ml @ 100 mls/hr IVPB Q12HR [facility] Rx #:[id number] Sodium Chloride 0.9% 1, 200 000 ml @ 100 mls/hr IV . Q10H [facility] Rx#:[id number] Sodium Ferric Gluconat- 100 Sucrose 125 mg In Sodium Chloride 0.9% 100 ml @ 100 mls/hr IVPB DAILY [facility] Rx#:[id number] metroNIDAZOLE-NS PMX 500 100 mg In Saline 1 100ml.bag @ 100 mls/hr IVPB Q8HR [facility] Rx#:[id number] Oral 120 Output: Drainage 40 80 Abdomen 40 80 Other: Voiding Method Toilet # Voids 2 # Bowel Movements 1 2 - Constitutional General appearance: Present: cooperative - Respiratory Details: Nonlabored - Cardiovascular Rhythm: regular - Gastrointestinal Gastrointestinal Comment(s): Soft nontender nondistended incisions clean dry and intact DION drained serosanguineous - Psychiatric Psychiatric: Present: A&O x's 3 - Labs CBC & Chem 7: 09/15/17 06:33 09/15/17 06:33 Labs: Abnormal Lab Results - Last 24 Hours (Table) 09/15/17 09/15/17 Range/Units 06:33 06:33 WBC 21.1 H (3.8-10.6) k/uL RBC 3.15 L (3.80-5.40) m/uL Hgb 7.2 L (11.4-16.0) gm/dL Hct 23.5 L (34.0-46.0) % MCV 74.8 L (80.0-100.0) fL MCH 22.8 L (25.0-35.0) pg MCHC 30.4 L (31.0-37.0) g/dL RDW 19.7 H (11.5-15.5) % Neutrophils # (Manual) 17.30 H (1.3-7.7) k/uL Monocytes # (Manual) 1.90 H (0-1.0) k/uL Eosinophils # (Manual) 0.84 H (0-0.7) k/uL Basophils # (Manual) 0.21 H (0-0.2) k/uL Metamyelocytes # (Man) 0.21 H (0) k/uL Myelocytes # (Manual) 0.21 H (0) k/uL Nucleated RBCs 28 H (0-0) /100 WBC BUN 6 L (7-17) mg/dL Creatinine 0.48 L (0.52-1.04) mg/dL Calcium 7.9 L (8.4-10.2) mg/dL Microbiology - Last 24 Hours (Table) 09/13/17 21:32 Blood Culture - Preliminary Blood No Growth after 24 hours 09/13/17 20:57 Blood Culture - Preliminary Blood No Growth after 24 hours Assessment and Plan Assessment: Status post splenectomy secondary to spontaneous splenic rupture Plan: Patient has no signs of active intra-abdominal bleeding. She is currently on her menstrual period. Continue to trend hemoglobin.
[2017-09-15] MEDS: DOCUSATE 100 MG CAP PO SCH ×2 (13:36→21:09)
--- NOTE | 2017-09-15 15:49 | PN ---
PROGRESS NOTE DATE OF SERVICE: 09/15/2017. REASON FOR FOLLOWUP VISIT: Post splenectomy fever. INTERVAL HISTORY: The patient's overall fever pattern has improved. She did have a low-grade fever of 100.7 this morning. Overall, the patient is feeling better. Denies significant chest pain, cough. Abdominal pain seems to have improved. Did have a bowel movement. She got Mag citrate. No urinary symptoms. EXAMINATION: Blood pressure 132/74, pulse of 73, temperature 98.7. She is 92% on room air. General description is a middle-aged female up in the bed in no distress. Respiratory system: Unlabored breathing. Some decreased breath sounds in the bases. No wheeze. HEART: S1, S2. Regular rate and rhythm. ABDOMEN: Soft, no guarding. No rigidity. LABS: Hemoglobin 7.8, white count 21.1. BUN of 6, creatinine 0.48. DIAGNOSTIC IMPRESSION AND PLAN: 1. Patient with post splenectomy fever source, question . Abdominal CT was negative for any acute abscess. If the patient remains to be afebrile. May be able to finish therapy with a course oral Ceftin and Flagyl. 2. The patient also need a post splenectomy vaccination day 14 of her surgery that will be arranged in the outpatient setting if the patient ends up being discharged. MMODL / IJN: [id number] /
--- NOTE | 2017-09-15 20:01 | PN ---
PROGRESS NOTE DATE OF SERVICE: 09/15/2017. INTERVAL HISTORY: This 47-year-old woman was admitted after spontaneous splenic rupture, had a splenectomy. The patient improved significantly. Hemoglobin is stable after multiple transfusions. Surgery is following the patient closely. The patient complains of severe at this time. No chest pain. No palpitations. No fever. A recent abdominal CT scan was stable. Hematology-Oncology evaluation ruled out any acute abnormality. EXAM: GENERAL: Alert, and oriented x3. VITAL SIGNS: Pulse is 83, blood pressure 126/77, respiratory rate 16, temp 99.8 , pulse ox 98% on room air. HEENT: Conjunctivae normal. Oral mucosa moist. NECK: No jugular venous distention. CARDIOVASCULAR: S1, S2. RESPIRATORY: Breath sounds diminished in the bases. No rhonchi. No crackles. ABDOMEN: Abdomen is soft, status post surgery. LEGS: Are no edema, no swelling. LABS: WBC 21.1, hemoglobin 7.2. Other labs noted. ASSESSMENT: 1. Spontaneous splenic rupture, undetermined etiology, status post laparotomy of splenectomy. 2. Hypotension, hypovolemia, possibly secondary to acute blood loss anemia secondary to splenic rupture. 3. Acute blood loss anemia secondary to splenic rupture, multifactorial status post transfusions. 4. Hypothyroidism. 5. Depression, anxiety. 6. Morbid obesity. 7. Anorexia. 8. Hypomagnesemia. 9. Hypocalcemia. 10.Increased WBC. RECOMMENDATIONS AND DISCUSSION: Recommend to continue current medications and symptomatic treatment. Otherwise at this time, we will monitor the patient closely and symptomatic treatment will be recommended. Repeat labs requested. Recommend continue to monitor. Add vitamins to the current regimen. Prognosis guarded because of multiple complex medical issues. Further recommendations to follow. MMODL / IJN: [id number] / [facility]Dat
[2017-09-15] MEDS: ESCITALOPRAM 10 MG TAB PO SCH (21:03)
[2017-09-16] MEDS: SODIUM CHLORIDE 0.9% 1,000 ML IV SCH ×3 (00:04→22:21)
[2017-09-16 06:56] LABS: Anion Gap 9 mmol/L; Blood Urea Nitrogen 4 mg/dL (7-17); Carbon Dioxide 26 mmol/L (22-30); Chloride 106 mmol/L (98-107); Glucose 94 mg/dL (74-99); Sodium 141 mmol/L (137-145)
[2017-09-16] MEDS: IPRATROPIUM-ALBUTEROL 3 ML NEB INHALATION SCH ×3 (07:17→19:22)
[2017-09-16 07:21] LABS: Anisocytosis Slight; HCT 25.4 % (34.0-46.0); HGB 7.6 gm/dL (11.4-16.0); Hypochromasia Marked; MCH 23.2 pg (25.0-35.0); MCHC 30.1 g/dL (31.0-37.0); MCV 77.2 fL (80.0-100.0); Mean Platelet Volume 8.5; Microcytosis Moderate; Platelet Count 515 k/uL (150-450); Poikilocytosis Moderate; RDW 19.8 % (11.5-15.5)
[2017-09-16] MEDS: LEVOTHYROXINE 112 MCG TAB PO SCH (07:42)
[2017-09-16] MEDS: DOCUSATE 100 MG CAP PO SCH ×2 (07:42→22:21)
[2017-09-16] MEDS: NYSTATIN 100,000 UNIT/ML SUSP 500,000 UNIT/5 ML CUP PO SCH ×4 (07:42→20:58)
[2017-09-16] MEDS: ALPRAZolam 0.25 MG TAB PO SCH ×4 (07:42→20:57)
[2017-09-16] MEDS: HEPARIN SODIUM,PORCINE 5,000 UNIT/ML 1 ML VIAL SQ SCH ×2 (07:43→17:03)
[2017-09-16] MEDS: MULTIVITAMINS, THERA LIQUID 237 ML BOTTLE PO SCH (07:43)
[2017-09-16] MEDS: PANTOPRAZOLE 40 MG TABLET PO SCH ×2 (07:43→17:03)
[2017-09-16] MEDS: CEFEPIME 2 GM in SODIUM CHLORIDE 0.9% 50 ML IVPB SCH ×2 (07:43→20:57)
[2017-09-16] MEDS: ONDANSETRON 4 MG/2 ML VIAL IVP PRN ×3 (07:50→20:57)
[2017-09-16 08:17] LABS: Eosinophils # (M) 1.21 k/uL (0-0.7); Metamyelocytes # (M) 0.24 k/uL (0); Metamyelocytes % 1 %; Monocytes # (M) 2.42 k/uL (0-1.0); Myelocytes # (M) 0.97 k/uL (0); Myelocytes % 4 %; Neutrophils # (M) 16.94 k/uL (1.3-7.7); Neutrophils % (M) 70 %; Nucleated Red Blood Cells 32 /100 WBC (0-0); Polychromasia Present; Total Cells Counted 200; WBC 24.2 k/uL (3.8-10.6)
[2017-09-16] MEDS: metroNIDAZOLE-NS PMX 500 MG in SALINE 1 100ML.BAG IVPB SCH ×2 (08:46→16:59)
[2017-09-16] MEDS: SODIUM FERRIC GLUCONAT-SUCROSE 125 MG in SODIUM CHLORIDE 0.9% 100 ML IVPB SCH (09:45)
--- NOTE | 2017-09-16 13:47 | P.PN ---
Subjective Patient is doing well overnight no complaints. Tolerating her diet feeling better today Objective - Vital Signs Vital signs: Vital Signs Temp 100.6 F H 09/16/17 12:09 Pulse 88 09/16/17 07:39 Resp 17 09/16/17 07:39 BP 144/78 09/16/17 07:39 Pulse Ox 94 L 09/16/17 08:00 Intake & Output 09/15/17 09/16/17 09/16/17 18:59 06:59 18:59 Intake Total 100 1250 Output Total 50 120 Balance 50 1130 Weight 99.5 kg 99.9 kg Intake: Intake, IV Titration 1250 Amount Sodium Chloride 0.9% 1, 1150 000 ml @ 100 mls/hr IV . Q10H [facility] Rx#:[id number] metroNIDAZOLE-NS PMX 500 100 mg In Saline 1 100ml.bag @ 100 mls/hr IVPB Q8HR [facility] Rx#:[id number] Oral 100 Output: Drainage 50 120 Abdomen 50 120 Other: Voiding Method Toilet Toilet # Voids 3 - Respiratory Details: Nonlabored - Cardiovascular Rhythm: regular - Gastrointestinal Gastrointestinal Comment(s): Soft nontender nondistended DION serous - Psychiatric Psychiatric: Present: A&O x's 3 - Labs CBC & Chem 7: 09/16/17 06:22 09/16/17 06:22 Labs: Abnormal Lab Results - Last 24 Hours (Table) 09/16/17 09/16/17 Range/Units 06:22 06:22 WBC 24.2 H (3.8-10.6) k/uL RBC 3.30 L (3.80-5.40) m/uL Hgb 7.6 L (11.4-16.0) gm/dL Hct 25.4 L (34.0-46.0) % MCV 77.2 L (80.0-100.0) fL MCH 23.2 L (25.0-35.0) pg MCHC 30.1 L (31.0-37.0) g/dL RDW 19.8 H (11.5-15.5) % Plt Count 515 H (150-450) k/uL Neutrophils # (Manual) 16.94 H (1.3-7.7) k/uL Monocytes # (Manual) 2.42 H (0-1.0) k/uL Eosinophils # (Manual) 1.21 H (0-0.7) k/uL Metamyelocytes # (Man) 0.24 H (0) k/uL Myelocytes # (Manual) 0.97 H (0) k/uL Nucleated RBCs 32 H (0-0) /100 WBC BUN 4 L (7-17) mg/dL Calcium 8.0 L (8.4-10.2) mg/dL Microbiology - Last 24 Hours (Table) 09/13/17 21:32 Blood Culture - Preliminary Blood No Growth after 48 hours 09/13/17 20:57 Blood Culture - Preliminary Blood No Growth after 48 hours Assessment and Plan Assessment: Status post splenectomy secondary to spontaneous splenic rupture Plan: Patient doing very well. She is clear for discharge pending final recommendations for antibiotics per ID
[2017-09-16] MEDS: ACETAMINOPHEN TAB 325 MG TAB PO PRN (14:06)
--- NOTE | 2017-09-16 17:05 | PN ---
PROGRESS NOTE DATE OF SERVICE: 09/16/2017. REASON FOR FOLLOWUP: Post splenectomy fever. INTERVAL HISTORY: The patient did have a low-grade fever of 100.6 today with 101 last evening. The patient overall is feeling better, though denies having any chest pain, shortness of breath or cough. Abdominal pain has improved. No nausea, vomiting. Oral intake remains to be poor. EXAMINATION: Blood pressure 115/75, pulse of 96, temperature 99.9. She is 94% on room air. General description is a middle aged female lying in bed in no distress. HEENT examination oral thrush. Lungs unlabored breathing. Clear to auscultation anteriorly. Heart S1, S2. Regular rate and rhythm. Abdomen soft. No guarding or rigidity. LABS: Hemoglobin 7.6, white count 24.2. Culture has been negative so far. DIAGNOSTIC IMPRESSION AND PLAN: Patient with spontaneous rupture of pain, status post splenectomy, now with a fever that seemed to have shown overall clinical improvement. The patient remains to be afebrile. Next 12 hours and the culture remains negative, we will give a short course of Ceftin and Flagyl for about a week to 10 days with close outpatient followup. The patient also need vaccination for meningococcus pneumococcal and influenza about a week from now. Continue supportive care. MMODL / IJN: [id number] /
--- NOTE | 2017-09-16 20:11 | PN ---
PROGRESS NOTE DATE OF SERVICE: 09/16/2017 This 47-year-old woman was admitted after spontaneous splenic rupture, also had surgery. The patient's white count is elevated. Hemoglobin is stable after surgery and Infectious Disease is following the patient closely. The patient is on broad- spectrum IV antibiotics. The patient is tolerating her diet better today. No chest pain. No palpitations. No fever. PHYSICAL EXAM: Alert and oriented times three. Patient having mild fever. Pulse is 96, blood pressure 158/75, respirations 18, temperature 99.9, pulse ox 94% on room air. HEENT: Conjunctivae normal. Oral mucosa moist. NECK: No JVD. No carotid bruit. No lymph node enlargement. CARDIOVASCULAR: S1, S2. RESPIRATORY: Diminished breath sounds at the bases. A few scattered rhonchi. Expiratory wheezing. ABDOMEN: Soft, obese, nontender. LEGS: No swelling. NERVOUS SYSTEM: No focal deficit. LABORATORY DATA: WBC 24, hemoglobin 7.6, sodium 141, potassium 4. ASSESSMENT: 1. Spontaneous splenic rupture, undetermined etiology, status post laparotomy and splenectomy. 2. Hypotension, hypovolemia secondary to acute blood loss anemia secondary to splenic rupture. 3. Acute blood loss anemia secondary to splenic rupture, multifactorial, status post transfusions. 4. Continued fever. 5. Increased WBC, possibly reactive. 6. Hypothyroidism. 7. History of depression, anxiety. 8. Morbid obesity. 9. Hypomagnesemia. 10.Hypocalcemia. RECOMMENDATIONS: Recommend to continue current medications, continue symptomatic treatment. Closely monitor with Infectious Disease. Continue antibiotics. Follow the cultures. Further recommendations to follow. MMODL / IJN: [id number] /
[2017-09-16] MEDS: ESCITALOPRAM 10 MG TAB PO SCH (20:58)
[2017-09-17] MEDS: HEPARIN SODIUM,PORCINE 5,000 UNIT/ML 1 ML VIAL SQ SCH ×2 (00:16→07:31)
[2017-09-17] MEDS: metroNIDAZOLE-NS PMX 500 MG in SALINE 1 100ML.BAG IVPB SCH ×2 (00:16→07:31)
[2017-09-17] MEDS: SODIUM CHLORIDE 0.9% 1,000 ML IV SCH (05:17)
[2017-09-17 06:57] LABS: Anisocytosis Moderate; HCT 25.8 % (34.0-46.0); HGB 7.8 gm/dL (11.4-16.0); Hypochromasia Marked; MCH 23.5 pg (25.0-35.0); MCHC 30.2 g/dL (31.0-37.0); MCV 77.8 fL (80.0-100.0); Mean Platelet Volume 8.6; Microcytosis Moderate; Platelet Count 580 k/uL (150-450); Poikilocytosis Moderate; RBC 3.32 m/uL (3.80-5.40); RDW 21.2 % (11.5-15.5)
[2017-09-17] MEDS: IPRATROPIUM-ALBUTEROL 3 ML NEB INHALATION SCH ×2 (07:00→13:36)
[2017-09-17 07:14] LABS: Anion Gap 8 mmol/L; Blood Urea Nitrogen 3 mg/dL (7-17); Calcium 8.2 mg/dL (8.4-10.2); Carbon Dioxide 27 mmol/L (22-30); Chloride 105 mmol/L (98-107); Glucose 87 mg/dL (74-99); Potassium 4.3 mmol/L (3.5-5.1); Sodium 140 mmol/L (137-145)
[2017-09-17 07:31] LABS: Band Neutrophils % 4 %; Eosinophils # (M) 0.24 k/uL (0-0.7); Metamyelocytes # (M) 0.49 k/uL (0); Metamyelocytes % 2 %; Myelocytes # (M) 0.49 k/uL (0); Myelocytes % 2 %; Neutrophils % (M) 75 %; Nucleated Red Blood Cells 31 /100 WBC (0-0); Total Cells Counted 200; WBC 24.4 k/uL (3.8-10.6)
[2017-09-17] MEDS: ONDANSETRON 4 MG/2 ML VIAL IVP PRN (07:31)
[2017-09-17 07:32] LABS: Polychromasia Present
[2017-09-17] MEDS: PANTOPRAZOLE 40 MG TABLET PO SCH (07:32)
[2017-09-17 07:33] LABS: Large Platelets Present
[2017-09-17] MEDS: LEVOTHYROXINE 112 MCG TAB PO SCH (07:34)
[2017-09-17] MEDS: NYSTATIN 100,000 UNIT/ML SUSP 500,000 UNIT/5 ML CUP PO SCH (07:35)
[2017-09-17] MEDS: DOCUSATE 100 MG CAP PO SCH (07:35)
[2017-09-17 07:42] VITALS: RESP 15
[2017-09-17] MEDS: CEFEPIME 2 GM in SODIUM CHLORIDE 0.9% 50 ML IVPB SCH (09:07)
[2017-09-17] MEDS: MULTIVITAMINS, THERA LIQUID 237 ML BOTTLE PO SCH (09:08)
[2017-09-17] MEDS: ALPRAZolam 0.25 MG TAB PO SCH ×2 (12:55)
--- NOTE | 2017-09-17 14:46 | P.PN ---
Subjective Progress Note Date: 09/17/17 Patient is doing well overnight no complaints. Tolerating her diet feeling better today Objective - Vital Signs Vital signs: Vital Signs Temp 98.2 F 09/17/17 13:58 Pulse 76 09/17/17 07:42 Resp 15 09/17/17 07:42 BP 129/82 09/17/17 07:42 Pulse Ox 94 L 09/17/17 07:42 Intake & Output 09/16/17 09/17/17 09/17/17 18:59 06:59 18:59 Intake Total 300 100 Balance 300 100 Weight 99.9 kg 98.7 kg Intake: Intake, IV Titration 100 Amount metroNIDAZOLE-NS PMX 500 100 mg In Saline 1 100ml.bag @ 100 mls/hr IVPB Q8HR [facility] Rx#:[id number] Oral 300 Other: Voiding Method Toilet Toilet Toilet # Voids 2 2 1 - Constitutional General appearance: Present: cooperative - Respiratory Details: Nonlabored - Cardiovascular Rhythm: regular - Gastrointestinal Gastrointestinal Comment(s): Soft nondistended nontender - Psychiatric Psychiatric: Present: A&O x's 3 - Labs CBC & Chem 7: 09/17/17 06:29 09/17/17 06:29 Labs: Abnormal Lab Results - Last 24 Hours (Table) 09/17/17 09/17/17 Range/Units 06:29 06:29 WBC 24.4 H (3.8-10.6) k/uL RBC 3.32 L (3.80-5.40) m/uL Hgb 7.8 L (11.4-16.0) gm/dL Hct 25.8 L (34.0-46.0) % MCV 77.8 L (80.0-100.0) fL MCH 23.5 L (25.0-35.0) pg MCHC 30.2 L (31.0-37.0) g/dL RDW 21.2 H (11.5-15.5) % Plt Count 580 H (150-450) k/uL Neutrophils # (Manual) 19.20 H (1.3-7.7) k/uL Monocytes # (Manual) 2.20 H (0-1.0) k/uL Metamyelocytes # (Man) 0.49 H (0) k/uL Myelocytes # (Manual) 0.49 H (0) k/uL Nucleated RBCs 31 H (0-0) /100 WBC BUN 3 L (7-17) mg/dL Calcium 8.2 L (8.4-10.2) mg/dL Microbiology - Last 24 Hours (Table) 09/13/17 21:32 Blood Culture - Preliminary Blood No Growth after 72 hours 09/13/17 20:57 Blood Culture - Preliminary Blood No Growth after 72 hours Assessment and Plan Assessment: Status post splenectomy secondary to spontaneous splenic rupture Plan: Patient doing very well. She is clear for discharge pending final recommendations for antibiotics per ID
[2017-09-17 15:19] VITALS: BP 126/69; PULSE 78; TEMP 98.6
--- NOTE | 2017-09-17 15:24 | PN ---
PROGRESS NOTE DATE OF SERVICE: 09/17/2017. REASON FOR FOLLOW UP: Post splenectomy fever and post splenectomy vaccination recommendation. INTERVAL HISTORY: The patient has been afebrile with no fever recorded in last 24 hours. The patient overall feeling better. The patient denies having any chest pain or shortness of breath or cough. Abdominal pain has improved. EXAMINATION: Blood pressure 129/82 with a pulse of 76, temperature 98.8. She is 94% on room air. General description is a middle aged female, lying in bed in no distress. Respiratory system: Unlabored breathing clear to auscultation anteriorly. Heart S1, S2. Regular rate and rhythm. ABDOMEN: Soft, no tenderness. LABS: Hemoglobin 7.8, white count 24.4 with a BUN of 3, creatinine 0.59. Blood and urine cultures have been negative. DIAGNOSTIC IMPRESSION AND PLAN: 1. Patient with a post splenectomy fever. So far workup has been negative. Overall improvement on cefepime, Flagyl that can be transitioned to oral Ceftin and Flagyl for 10 days with close outpatient followup. The patient advised if any recurrence of fevers or any worsening abdominal pain to notify us right away. 2. Patient will need post splenectomy vaccination 1 dose of Haemophilus influenzae type B, vaccine and the patient will need 1 dose of PCV 13 to be followed by a dose of PPSV23 8 weeks later and 2 doses of for meningococcal vaccine 2 months apart. Scripts were provided. The patient she will call [facility] to have the vaccination done on 09/24/2017. All their questions and concerns were answered. Appropriate scripts were provided to the patient and sent to the pharmacy. MMODL / IJN: [id number] /
--- NOTE | 2017-09-17 22:06 | PN ---
PROGRESS NOTE DATE OF SERVICE: 09/17/2017 INTERVAL HISTORY: This 47-year-old woman who was admitted with spontaneous splenic rupture is being closely monitored. The patient improved significantly. The patient had elevated white count. The patient was running low-grade fever. Dr. Weller from [facility] is following the patient closely. No chest pain, no palpitation. PHYSICAL EXAM: Alert and oriented x3. Pulse 78, blood pressure 126/69, respiration 15, temperature 98.6, pulse ox 98% room air. HEENT: Conjunctivae normal. Oral mucosa moist. Neck is no jugular venous distention. No thyroid enlargement and no carotid bruit. CARDIOVASCULAR: S1, S2 muffled. No S3 and no S4. RESPIRATORY: Breath sounds diminished in the bases. A few scattered rhonchi. No crackles. ABDOMEN: Soft. Otherwise, status post surgery. LEGS: No edema, no swelling. NERVOUS SYSTEM: No focal deficits. LABS: WBC 24.4, hemoglobin 7.8. ASSESSMENT: 1. Spontaneous splenic rupture of undetermined etiology, status post laparotomy and splenectomy. 2. Hypotension and hypovolemia secondary to acute blood loss anemia secondary to splenic rupture present on admission, improved. 3. Acute blood loss anemia secondary to splenic rupture, multifactorial, status post transfusions. 4. Continued fever, improved. 5. Increased white blood cell count, possibly reactive. 6. Hypothyroidism. 7. History of depression and anxiety. 8. Morbid obesity. 9. Hypomagnesemia. 10.Hypocalcemia. RECOMMENDATIONS: Recommend to continue current medications. Continue to monitor and symptomatic treatment. Otherwise at this time I recommend resume the home medications, incentive spirometry and antibiotics per Infectious Disease and further recommendations to follow. MMODL / IJN: [id number] /
[2017-09-18 14:40] LABS: Albumin 2.13 g/dL (3.80-4.90); Gamma Globulin 0.46 g/dL (0.70-1.50); Protein, Total 4.6 g/dL (6.2-8.2)
== END 2017-09-17 15:00 | disposition home or self-care (01) | DRG 799 ==
LOC: EC 09:00 → 6ICU 11:55 → 3SUR 09-11 22:06
PROVIDERS: ADMIT Surgery; ATTEND Surgery
PROC: 30230N1 Transfusion of Nonautologous Red Blood Cells into Peripheral Vein, Open Approach (ICD-10-PCS; 2017-09-09)
PROC: 07TP0ZZ Resection of Spleen, Open Approach (ICD-10-PCS; principal; 2017-09-09 12:23)
DX: D73.5 Infarction of spleen (principal); K66.1 Hemoperitoneum; D62 Acute posthemorrhagic anemia; Z68.41 Body mass index [BMI] 40.0-44.9, adult; J98.11 Atelectasis; B37.0 Candidal stomatitis; I95.9 Hypotension, unspecified; D25.9 Leiomyoma of uterus, unspecified; E66.01 Morbid (severe) obesity due to excess calories; E83.51 Hypocalcemia; E83.42 Hypomagnesemia; G89.18 Other acute postprocedural pain; I10 Essential (primary) hypertension; D50.0 Iron deficiency anemia secondary to blood loss (chronic); E03.9 Hypothyroidism, unspecified; E86.1 Hypovolemia; F41.8 Other specified anxiety disorders; F17.210 Nicotine dependence, cigarettes, uncomplicated; Z71.6 Tobacco abuse counseling; Z79.890 Hormone replacement therapy; Z79.899 Other long term (current) drug therapy; Z88.0 Allergy status to penicillin; Z82.49 Family history of ischemic heart disease and other diseases of the circulatory system; Z82.5 Family history of asthma and other chronic lower respiratory diseases; Z82.61 Family history of arthritis
CPT/HCPCS: 36415; 71045; 71275; 74177; 80048; 80053; 80076; 81001; 82150; 82550; 82553; 83605; 83690; 83735; 83883; 84100; 84165; 84484; 85025; 85027; 85610; 85652; 85730; 86038; 86140; 86334; 86431; 86663; 86664; 86665; 86850; 86900; 86901; 86920; 87040; 87086; 88305; 93005; 94640; 94760; 96361; 96374; 99291

== ENCOUNTER 2017-10-05 11:52 | Emergency (ER) | payer OTHER ==
[2017-10-05 12:19] VITALS: RESP 18; TEMP 99.7
[2017-10-05] MEDS ORDERED: SODIUM CHLORIDE 0.9% 1,000 ML IV STA (12:45)
[2017-10-05] MEDS ORDERED: ACETAMINOPHEN IV (For NPO) 1,000 MG in EMPTY BAG 1 BAG IVPB ONE (12:46)
[2017-10-05] MEDS ORDERED: ONDANSETRON 4 MG/2 ML VIAL IVP STA (12:46)
--- NOTE | 2017-10-05 12:49 | ED ---
General Adult HPI - General Chief complaint: Abdominal Pain Stated complaint: abd pain Time Seen by Provider: 10/05/17 12:25 Source: patient, RN notes reviewed Mode of arrival: wheelchair Limitations: no limitations - History of Present Illness Initial comments: 47-year-old female presents to the emergency department for a chief complaint of diffuse abdominal pain 4 weeks. Patient states the pain has worsened over the past 3 days. Patient had a "spontaneous splenic rupture" about 4 weeks ago and underwent an open splenectomy at that time. Patient states she has had pain since that time that has worsened in the past 3 days. She has also been nauseous since that time. Patient has been eating somewhat. Patient states bowel movements are regular and soft. Patient denies pain with urination or difficulty urinating. Patient denies increased pain after eating. States she is not sure what makes it worse or better. Patient denies fevers or chills at home. Patient has no other complaints at this time including shortness of breath, chest pain, abdominal pain, nausea or vomiting, headache, or visual changes. - Related Data Home Medications Medication Instructions Recorded Confirmed Escitalopram [Lexapro] 10 mg PO HS 08/25/17 10/05/17 Levothyroxine Sodium [Synthroid] 112 mcg PO DAILY 08/25/17 10/05/17 ALPRAZolam [Xanax XR] 1 mg PO DAILY 09/09/17 10/05/17 Acetaminophen Tab [Tylenol Tab] 1,000 mg PO Q6HR PRN 10/05/17 10/05/17 Allergies Allergy/AdvReac Type Severity Reaction Status Date / Time Penicillins Allergy Unknown Verified 10/05/17 12:27 Childhood sulfamethoxazole Allergy Hallucinati Verified 10/05/17 12:27 [From Bactrim] ons trimethoprim [From Bactrim] Allergy Hallucinati Verified 10/05/17 12:27 ons Review of Systems ROS Statement: Those systems with pertinent positive or pertinent negative responses have been documented in the HPI. ROS Other: All systems not noted in ROS Statement are negative. Past Medical History Past Medical History: Thyroid Disorder Additional Past Medical History / Comment(s): ovarian cyst and mass on uterus () History of Any Multi-Drug Resistant Organisms: None Reported Past Surgical History: No Surgical Hx Reported Additional Past Surgical History / Comment(s): spleenectomy Past Anesthesia/Blood Transfusion Reactions: No Reported Reaction Past Psychological History: Depression Smoking Status: Former smoker Past Alcohol Use History: None Reported Past Drug Use History: None Reported - Past Family History Mother Family Medical History: Hypertension, Rheumatoid Arthritis ([place]) Father Family Medical History: COPD, Myocardial Infarction ([place]) General Exam Limitations: no limitations General appearance: alert, in no apparent distress Head exam: Present: atraumatic, normocephalic, normal inspection Eye exam: Present: normal appearance, PERRL, EOMI. Absent: scleral icterus, conjunctival injection, periorbital swelling ENT exam: Present: normal exam, normal oropharynx, mucous membranes moist, TM's normal bilaterally, normal external ear exam Neck exam: Present: normal inspection, full ROM. Absent: tenderness, meningismus, lymphadenopathy Respiratory exam: Present: normal lung sounds bilaterally. Absent: respiratory distress, wheezes, rales, rhonchi, stridor Cardiovascular Exam: Present: regular rate, normal rhythm, normal heart sounds. Absent: systolic murmur, diastolic murmur, rubs, gallop, clicks GI/Abdominal exam: Present: soft, tenderness (mild diffuse abdominal tenderness. RUQ slightly more tender than rest of abdomen. Negative acosta sign. ), normal bowel sounds. Absent: distended, guarding, rebound, rigid Course Vital Signs 10/05/ 12:15 Temperature 99.7 F H Pulse Rate 98 Respiratory 18 Rate Blood Pressure 130/81 O2 Sat by Pulse 97 Oximetry Medical Decision Making - Medical Decision Making 47-year-old female presents to the emergency department for a chief complaint of diffuse abdominal pain 4 weeks worsened in the past 3 days. Patient had an open splenectomy for weeks ago and pain has been constant since that time. Patient has also been nauseous since that time but is able to keep down some foods. Patient is not sure what makes the pain better or worse. Patient is having regular bowel movements and no urinary symptoms. On exam patient does have mild diffuse abdominal tenderness. Tenderness is moderate in the right upper quadrant. Negative Acosta's sign. The rest of the exam is unremarkable. CT abdomen and pelvis shows acute interstitial edematous-type pancreatitis of the pancreatic head and uncinate process about. Pancreatic fluid collection to suggest acute necrotic fluid collection or chronic pseudocysts. No splenic arterial pseudoaneurysm. There is a new 1.5 cm right basilar pulmonary nodule, recommended follow-up. There is also a multilobulated enlarged heterogeneous uterus likely representing multiple leiomyomas fullness of the left adnexa may represent a cyst and is similar to the prior exam. Patient will be admitted to [facility] consult Lopez. Patient will be nothing by mouth with IV fluids for possible pancreatitis. She will follow up with primary care for nodule on lung which she is aware of as well as cysts on uterus and ovaries. - Lab Data Result diagrams: 10/05/17 13:38 10/05/17 13:38 Lab Results 10/05/17 10/05/17 10/05/17 Range/Units 13:38 13:38 13:38 WBC 17.2 H (3.8-10.6) k/uL RBC 4.04 (3.80-5.40) m/uL Hgb 10.0 L D (11.4-16.0) gm/dL Hct 32.2 L (34.0-46.0) % MCV 79.6 L (80.0-100.0) fL MCH 24.7 L (25.0-35.0) pg MCHC 31.0 (31.0-37.0) g/dL RDW 22.0 H (11.5-15.5) % Plt Count 598 H (150-450) k/uL Neutrophils % 78 % Lymphocytes % 12 % Monocytes % 7 % Eosinophils % 1 % Basophils % 0 % Neutrophils # 13.3 H (1.3-7.7) k/uL Lymphocytes # 2.0 (1.0-4.8) k/uL Monocytes # 1.3 H (0-1.0) k/uL Eosinophils # 0.2 (0-0.7) k/uL Basophils # 0.1 (0-0.2) k/uL Hypochromasia Marked Poikilocytosis Slight Anisocytosis Moderate Microcytosis Moderate Sodium 140 (137-145) mmol/L Potassium 4.3 (3.5-5.1) mmol/L Chloride 104 (98-107) mmol/L Carbon Dioxide 24 (22-30) mmol/L Anion Gap 12 mmol/L BUN 6 L (7-17) mg/dL Creatinine 0.50 L (0.52-1.04) mg/dL Est GFR (CKD-EPI)AfAm >90 (>60 ml/min/1.73 sqM) Est GFR (CKD-EPI)NonAf >90 (>60 ml/min/1.73 sqM) Glucose 97 (74-99) mg/dL Plasma Lactic Acid Tanner 1.1 (0.7-2.0) mmol/L Calcium 9.5 (8.4-10.2) mg/dL Total Bilirubin 0.4 (0.2-1.3) mg/dL AST 18 (14-36) U/L ALT 23 (9-52) U/L Alkaline Phosphatase 101 (38-126) U/L Total Protein 6.4 (6.3-8.2) g/dL Albumin 3.4 L (3.5-5.0) g/dL Amylase 31 (30-110) U/L Lipase 21 L (23-300) U/L Urine Color Urine Appearance (Clear) Urine pH (5.0-8.0) Ur Specific [place] (1.001-1.035) Urine Protein (Negative) Urine Glucose (UA) (Negative) Urine Ketones (Negative) Urine Blood (Negative) Urine Nitrite (Negative) Urine Bilirubin (Negative) Urine Urobilinogen (<2.0) mg/dL Ur Leukocyte Esterase (Negative) Urine WBC (0-5) /hpf Ur Squamous Epith Cells (0-4) /hpf Urine Bacteria (None) /hpf Urine Mucus (None) /hpf Urine HCG, Qual (Not Detectd) 10/05/17 10/05/17 Range/Units 14:09 14:09 WBC (3.8-10.6) k/uL RBC (3.80-5.40) m/uL Hgb (11.4-16.0) gm/dL Hct (34.0-46.0) % MCV (80.0-100.0) fL MCH (25.0-35.0) pg MCHC (31.0-37.0) g/dL RDW (11.5-15.5) % Plt Count (150-450) k/uL Neutrophils % % Lymphocytes % % Monocytes % % Eosinophils % % Basophils % % Neutrophils # (1.3-7.7) k/uL Lymphocytes # (1.0-4.8) k/uL Monocytes # (0-1.0) k/uL Eosinophils # (0-0.7) k/uL Basophils # (0-0.2) k/uL Hypochromasia Poikilocytosis Anisocytosis Microcytosis Sodium (137-145) mmol/L Potassium (3.5-5.1) mmol/L Chloride (98-107) mmol/L Carbon Dioxide (22-30) mmol/L Anion Gap mmol/L BUN (7-17) mg/dL Creatinine (0.52-1.04) mg/dL Est GFR (CKD-EPI)AfAm (>60 ml/min/1.73 sqM) Est GFR (CKD-EPI)NonAf (>60 ml/min/1.73 sqM) Glucose (74-99) mg/dL Plasma Lactic Acid Tanner (0.7-2.0) mmol/L Calcium (8.4-10.2) mg/dL Total Bilirubin (0.2-1.3) mg/dL AST (14-36) U/L ALT (9-52) U/L Alkaline Phosphatase (38-126) U/L Total Protein (6.3-8.2) g/dL Albumin (3.5-5.0) g/dL Amylase (30-110) U/L Lipase (23-300) U/L Urine Color Yellow Urine Appearance Clear (Clear) Urine pH 6.5 (5.0-8.0) Ur Specific [place] 1.018 (1.001-1.035) Urine Protein 1+ H (Negative) Urine Glucose (UA) Negative (Negative) Urine Ketones Negative (Negative) Urine Blood Negative (Negative) Urine Nitrite Negative (Negative) Urine Bilirubin Negative (Negative) Urine Urobilinogen <2.0 (<2.0) mg/dL Ur Leukocyte Esterase Negative (Negative) Urine WBC 2 (0-5) /hpf Ur Squamous Epith Cells 3 (0-4) /hpf Urine Bacteria Rare H (None) /hpf Urine Mucus Few H (None) /hpf Urine HCG, Qual Not Detected (Not Detectd) Disposition Clinical Impression: Pancreatitis Disposition: ADMITTED IP TO THIS [facility] Condition: Good Is patient prescribed a controlled substance at d/c from ED?: No Referrals: Benjamin Carrasquillo DO [Primary Care Provider] - 1-2 days Time of Disposition: 15:43
[2017-10-05 13:57] LABS: Anisocytosis Moderate; Basophils # (A) 0.1 k/uL (0-0.2); Basophils % (A) 0 %; Eosinophils # (A) 0.2 k/uL (0-0.7); Eosinophils % (A) 1 %; HCT 32.2 % (34.0-46.0); Hypochromasia Marked; Lymphocytes % (A) 12 %; MCH 24.7 pg (25.0-35.0); MCV 79.6 fL (80.0-100.0); Mean Platelet Volume 8.5; Microcytosis Moderate; Monocytes # (A) 1.3 k/uL (0-1.0); Monocytes % (A) 7 %; Neutrophils # (A) 13.3 k/uL (1.3-7.7); Neutrophils % (A) 78 %; Platelet Count 598 k/uL (150-450); Poikilocytosis Slight; RBC 4.04 m/uL (3.80-5.40); WBC 17.2 k/uL (3.8-10.6)
[2017-10-05 14:02] LABS: ALT 23 U/L (9-52); AST 18 U/L (14-36); Albumin 3.4 g/dL (3.5-5.0); Alkaline Phosphatase 101 U/L (38-126); Amylase 31 U/L (30-110); Anion Gap 12 mmol/L; Blood Urea Nitrogen 6 mg/dL (7-17); Calcium 9.5 mg/dL (8.4-10.2); Carbon Dioxide 24 mmol/L (22-30); Chloride 104 mmol/L (98-107); Glucose 97 mg/dL (74-99); Lipase 21 U/L (23-300); Potassium 4.3 mmol/L (3.5-5.1); Sodium 140 mmol/L (137-145); Total Bilirubin 0.4 mg/dL (0.2-1.3); Total Protein 6.4 g/dL (6.3-8.2)
[2017-10-05 14:35] LABS: Appearance,Urine Clear (Clear); Bacteria,Urine Rare /hpf; Bilirubin,Urine Negative (Negative); Blood,Urine Negative (Negative); Color,Urine Yellow; Glucose,Urine (UA) Negative (Negative); Ketones,Urine Negative (Negative); Leukocyte Esterase,Urine Negative (Negative); Mucus,Urine Few /hpf; Nitrite,Urine Negative (Negative); PH, Urine 6.5 (5.0-8.0); Protein,Urine 1+ (Negative); Specific Gravity,Urine 1.018 (1.001-1.035); Squamous Epithelial Cell,Urine 3 /hpf (0-4); Urobilinogen,Urine <2.0 mg/dL (<2.0); WBC,Urine 2 /hpf (0-5)
[2017-10-05] MEDS ORDERED: MORPHINE SULFATE 2 MG/ML SYRINGE IVP STA (14:51)
--- NOTE | 2017-10-05 14:56 | CT ---
EXAMINATION TYPE: CT abdomen pelvis w con DATE OF EXAM: 10/05/2017 HISTORY: Abdominal pain with nausea CT DLP: 1550mGycm Automated Exposure Control for Dose Reduction was Utilized. CONTRAST: CT scan of the abdomen and pelvis is performed with IV Contrast, patient injected with 100 mL of Isov ue 300. COMPARISON: 09/14/2017 FINDINGS: LUNG BASES: No significant abnormality is appreciated. LIVER/GB: No significant abnormality is appreciated. PANCREAS: There is near complete homogeneous enlargement of the pancreatic head with peripancreatic f at stranding surrounding the pancreatic head and uncinate process and celiac axis as well as the supe rior mesenteric artery. There is also engorgement of the main portal vein and superior mesenteric vei n. No ductal dilatation is appreciated within the pancreas. No pancreatic calcifications. No peripanc reatic fat stranding. No focal hypoattenuated areas to suggest pancreatic necrosis. SPLEEN: No significant abnormality is seen. No splenic arterial pseudoaneurysm. Spleen is surgically absent. ADRENALS: No significant abnormality is seen. KIDNEYS: Kidneys enhance symmetrically without hydronephrosis. There appears to be a lobulated contou r of the inferior margin of the right kidney laterally BOWEL: No significant abnormality is seen. No bowel dilatation is noted. UTERUS/ADNEXA: Uterus is grossly sacral lobulated, enlarged, and heterogenous with multiple probable leiomyomas demonstrating central necrosis and pedunculated large 5.5 cm left fundal lateral probable leiomyoma. Adnexal fullness on the left, possibly cystic change, is similar to the exam of 09/14/2017. LYMPH NODES: Scattered prominent peripancreatic lymph nodes are likely reactive. OSSEOUS STRUCTURES: Nonspecific sclerotic foci are seen within the left hemipelvis. Osseous structure s appear intact. IMPRESSION: 1. Acute interstitial edematous type pancreatitis of the pancreatic head and uncinate process without peripancreatic fluid collection to suggest acute necrotic fluid collection or chronic pseudocyst. No splenic arterial pseudoaneurysm. However there is enlargement of the main portal vein and superior m esenteric vein that could represent resultant thrombus. 2. New 1.5 cm right basilar pulmonary nodule. Follow-up nonemergent chest CT is recommended for full evaluation of the chest. 3. Multilobulated enlarged heterogenous uterus likely representing multiple leiomyomas. Fullness of t he left adnexa may represent a cyst and is similar to the prior exam.
[2017-10-05] MEDS ORDERED: NALOXONE 0.4 MG/ML 1 ML VIAL IV PRN (15:39)
[2017-10-05] MEDS ORDERED: KETOROLAC 30 MG/ML 1 ML VIAL IVP PRN (15:39)
[2017-10-05] MEDS ORDERED: MORPHINE SULFATE 2 MG/ML SYRINGE IV PRN (15:39)
[2017-10-05] MEDS ORDERED: ACETAMINOPHEN IV (For NPO) 1,000 MG in EMPTY BAG 1 BAG IVPB SCH (15:45)
[2017-10-05] MEDS ORDERED: SODIUM CHLORIDE 0.9% 1,000 ML IV SCH (15:45)
--- NOTE | 2017-10-05 16:33 | US ---
EXAMINATION TYPE: US gallbladder DATE OF EXAM: 10/05/2017 COMPARISON: CT abdomen pelvis 10/05/2017 CLINICAL HISTORY: Pain. Patient states having Spleen removed x 1 month ago. EXAM MEASUREMENTS: Liver Length: 15.2 cm Gallbladder Wall: 0.1 cm CHD: 0.3 cm Right Kidney: 10.1 x 4.3 x 5.0 cm Pancreas: Appears echogenic Liver: Echogenic with areas of focal sparing seen Gallbladder: wnl Evidence for sonographic Acosta's sign: neg CBD: Obscured by overlying bowel gas CHD: wnl Right Kidney: wnl, limited lower pole visualization due to overlying bowel gas No vascular flow seen in splenic vein and main portal vein. Main portal vein = 1.9 cm. Grayscale, color Doppler imaging performed, low-level internal echoes are noted, there is lack of color flow. 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 Hepatic steatosis.
[2017-10-05] MEDS ORDERED: HEPARIN SODIUM,PORCINE 5,000 UNIT/ML 1 ML VIAL IV PRN (16:43)
[2017-10-05] MEDS ORDERED: HEPARIN SODIUM,PORCINE 10,000 UNIT/ML 1 ML VIAL IV ONE (16:43)
[2017-10-05] MEDS ORDERED: HEPARIN SODIUM,PORCINE/D5W PMX 25,000 UNIT in DEXTROSE/WATER 1 500ML.BAG IV SCH (16:45)
[2017-10-05 16:49] VITALS: BP 104/53; PULSE 78
== END 2017-10-05 17:49 | disposition other institution (70) ==
LOC: EC 11:52
DX: K85.90 Acute pancreatitis without necrosis or infection, unspecified (principal); R91.1 Solitary pulmonary nodule; N85.2 Hypertrophy of uterus; E07.9 Disorder of thyroid, unspecified; F32.9 Major depressive disorder, single episode, unspecified; Z87.891 Personal history of nicotine dependence; Z79.899 Other long term (current) drug therapy; Z88.0 Allergy status to penicillin; Z88.1 Allergy status to other antibiotic agents; Z90.81 Acquired absence of spleen
CPT/HCPCS: 36415; 80053; 82150; 83605; 83690; 85025; 81001; 81025; 87040; 76705; 74177; 99285; 96365; 96375 ×4; 96361; J1644 ×2; J2405; J2270; J0131; Q9967

== ENCOUNTER 2018-01-10 19:55 | Emergency (ER) | payer OTHER ==
[2018-01-10 20:38] VITALS: BP 119/80; PULSE 69; RESP 20; TEMP 98.5
--- NOTE | 2018-01-10 20:58 | ED ---
General Adult HPI - General Chief complaint: Extremity Injury, Lower Stated complaint: left foot pain Time Seen by Provider: 01/10/18 20:43 Source: patient, RN notes reviewed Mode of arrival: ambulatory Limitations: no limitations - History of Present Illness Initial comments: This is a 47-year-old female who presents to the emergency department with chief complaint of left foot pain. Patient states that one week ago she "did something" to her left foot. She states that while walking she developed a pain in the lateral aspect of her left foot. She states that she even has pain at rest, however it is worse with bearing weight and ambulating. Denies any ankle or proximal leg pain. Denies any other injuries. Denies any recent fevers or chills, chest pain or shortness of breath, abdominal pain, vomiting, numbness or tingling. - Related Data Home Medications Medication Instructions Recorded Confirmed Escitalopram [Lexapro] 10 mg PO HS 08/25/17 10/05/17 Levothyroxine Sodium [Synthroid] 112 mcg PO DAILY 08/25/17 10/05/17 ALPRAZolam [Xanax XR] 1 mg PO DAILY 09/09/17 10/05/17 Acetaminophen Tab [Tylenol Tab] 1,000 mg PO Q6HR PRN 10/05/17 10/05/17 Allergies Allergy/AdvReac Type Severity Reaction Status Date / Time Penicillins Allergy Unknown Verified 01/10/18 20:38 Childhood sulfamethoxazole Allergy Hallucinati Verified 01/10/18 20:38 [From Bactrim] ons trimethoprim [From Bactrim] Allergy Hallucinati Verified 01/10/18 20:38 ons Review of Systems ROS Statement: Those systems with pertinent positive or pertinent negative responses have been documented in the HPI. ROS Other: All systems not noted in ROS Statement are negative. Past Medical History Past Medical History: Thyroid Disorder Additional Past Medical History / Comment(s): ovarian cyst and mass on uterus () History of Any Multi-Drug Resistant Organisms: None Reported Past Surgical History: No Surgical Hx Reported Additional Past Surgical History / Comment(s): spleenectomy Past Anesthesia/Blood Transfusion Reactions: No Reported Reaction Past Psychological History: Depression Smoking Status: Current every day smoker Past Alcohol Use History: Rare Past Drug Use History: None Reported - Past Family History Mother Family Medical History: Hypertension, Rheumatoid Arthritis ([place]) Father Family Medical History: COPD, Myocardial Infarction ([place]) General Exam - General Exam Comments Initial Comments: General: Awake and alert, well-developed; in no apparent distress. HEENT: Head atraumatic, normocephalic. Pupils are equal, round and reactive to light. Extraocular movements intact. Oropharynx moist without erythema or exudate. Neck: Supple. Normal ROM. Cardiovascular: Regular rate and rhythm. No murmurs, rubs or gallops. Chest symmetrical. Respiratory: Lungs clear to auscultation bilaterally. No wheezes, rales or rhonchi. Normal respiratory effort with no use of accessory muscles. Musculoskeletal: Normal range of motion of the left ankle and foot. There is tenderness along the proximal fifth metatarsal. No obvious gross deformities. No swelling, erythema, ecchymosis. Sensation intact. Pedal pulses are 2+ equal and palpable bilaterally. Skin: [place], warm and dry without rashes or lesions. Neurological: Alert and oriented x3. CN II-XII grossly intact. Speech is fluent and answers are appropriate. No focal neuro deficits. Psychiatric: Normal mood and affect. No overt signs of depression or anxiety noted. Limitations: no limitations Course Vital Signs 01/10/18 20:32 Temperature 98.5 F Pulse Rate 69 Respiratory 20 Rate Blood Pressure 119/80 O2 Sat by Pulse 98 Oximetry Medical Decision Making - Medical Decision Making This is a 47-year-old female who presents to the emergency department with chief complaint of left foot pain. Patient reports pain to the lateral aspect of her left foot for the past one week. There is tenderness over the proximal left fifth metatarsal. X-ray reveals no acute abnormalities. Recommended following up with orthopedics for further evaluation. Michael bandage is applied. Patient is in no acute distress and will be discharged home at this time. - Radiology Data Radiology results: report reviewed X-ray left foot impression: Calcaneal spurring. No fracture seen. Disposition Clinical Impression: Left foot pain Disposition: HOME SELF-CARE Condition: Good Instructions: Foot Sprain (ED) Additional Instructions: As discussed, please follow-up with orthopedics for further evaluation. Please follow up with primary care provider within 1-2 days. Return to emergency department if symptoms should worsen or any concerns arise. Is patient prescribed a controlled substance at d/c from ED?: No Referrals: Danish Nicholas DO [Primary Care Provider] - 1-2 days Benito Becerra DO [Doctor of Osteopathic Medicine] - 1-2 days Time of Disposition: 21:23
--- NOTE | 2018-01-10 21:10 | XR ---
EXAMINATION TYPE: XR foot complete LT DATE OF EXAM: 01/10/2018 COMPARISON: NONE HISTORY: Pain TECHNIQUE: 3 views FINDINGS: There are plantar and Achilles calcaneal spurs. Metatarsals are intact. I see no fracture n or dislocation. IMPRESSION: Calcaneal spurring. No fracture seen.
== END 2018-01-10 21:35 | disposition home or self-care (01) ==
LOC: EC 19:55
DX: M79.672 Pain in left foot (principal); M77.32 Calcaneal spur, left foot; E07.9 Disorder of thyroid, unspecified; F32.9 Major depressive disorder, single episode, unspecified; F17.200 Nicotine dependence, unspecified, uncomplicated; Z88.0 Allergy status to penicillin; Z88.2 Allergy status to sulfonamides; Z79.899 Other long term (current) drug therapy
CPT/HCPCS: 99283

== ENCOUNTER 2018-02-12 14:56 | Emergency (ER) | payer OTHER ==
[2018-02-12 15:11] VITALS: BP 139/70; PULSE 84; RESP 18; TEMP 98.7
[2018-02-12] MEDS ORDERED: SODIUM CHLORIDE 0.9% 500 ML 500 ML IV STA (15:13)
--- NOTE | 2018-02-12 15:35 | ED ---
Abdominal Pain HPI - General Source: patient, RN notes reviewed Mode of arrival: ambulatory Limitations: no limitations <Benjamin Maloney - Last Filed: 02/12/18 15:34> <Ted Lees - Last Filed: 02/12/18 18:59> - General Chief Complaint: Abdominal Pain Stated Complaint: L Side pain Time Seen by Provider: 02/12/18 15:15 - History of Present Illness Initial Comments: This a 47-year-old female presents emergency Department chief complaint of left lower quadrant abdominal pain. Patient states pain started on . Patient states pain has worsened. She states that certain movements do increase the pain. She states she's been having regular vomits denies any diarrhea, constipation, melena arm and she's a. Patient denies any dysuria or hematuria. 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 Patient states that she was seen at [facility] and is currently on Coumadin therapy. Patient denies any recent fever, chills, night sweats. Denies any chest pain or shortness of breath. Patient has no vaginal bleeding or vaginal discharge. (Benjamin Maloney) - Related Data Home Medications Medication Instructions Recorded Confirmed Escitalopram [Lexapro] 10 mg PO HS 08/25/17 02/12/18 ALPRAZolam [Xanax XR] 1 mg PO DAILY PRN 09/09/17 02/12/18 Acetaminophen [Tylenol] 1,000 mg PO Q4-6H PRN 02/12/18 02/12/18 Levothyroxine Sodium 100 mcg PO DAILY 02/12/18 02/12/18 Warfarin Sodium [Coumadin] 5 mg PO SUTUWETHSA 02/12/18 02/12/18 Warfarin Sodium [Coumadin] 7.5 mg PO MOFR 02/12/18 02/12/18 Allergies Allergy/AdvReac Type Severity Reaction Status Date / Time Penicillins Allergy Rash/Hives Verified 02/12/18 16:11 sulfamethoxazole Allergy Hallucinati Verified 02/12/18 16:11 [From Bactrim] ons trimethoprim [From Bactrim] Allergy Hallucinati Verified 02/12/18 16:11 ons Review of Systems ROS Other: All systems not noted in ROS Statement are negative. <Benjamin Maloney - Last Filed: 02/12/18 15:34> ROS Other: All systems not noted in ROS Statement are negative. <Ted Lese - Last Filed: 02/12/18 18:59> ROS Statement: Those systems with pertinent positive or pertinent negative responses have been documented in the HPI. Past Medical History Past Medical History: Thyroid Disorder Additional Past Medical History / Comment(s): ovarian cyst and mass on uterus () History of Any Multi-Drug Resistant Organisms: None Reported Past Surgical History: No Surgical Hx Reported Additional Past Surgical History / Comment(s): spleenectomy Past Anesthesia/Blood Transfusion Reactions: No Reported Reaction Past Psychological History: Depression Smoking Status: Current every day smoker Past Alcohol Use History: Rare Past Drug Use History: None Reported - Past Family History Mother Family Medical History: Hypertension, Rheumatoid Arthritis ([place]) Father Family Medical History: COPD, Myocardial Infarction ([place]) <Benjamin Maloney - Last Filed: 02/12/18 15:34> General Exam Limitations: no limitations General appearance: alert, in no apparent distress Head exam: Present: atraumatic, normocephalic, normal inspection Respiratory exam: Present: normal lung sounds bilaterally. Absent: respiratory distress, wheezes, rales, rhonchi, stridor Cardiovascular Exam: Present: regular rate, normal rhythm, normal heart sounds. Absent: systolic murmur, diastolic murmur, rubs, gallop, clicks GI/Abdominal exam: Present: soft, tenderness (Mild/moderate left lower quadrant tenderness), normal bowel sounds. Absent: distended, guarding, rebound, rigid Back exam: Absent: CVA tenderness (R), CVA tenderness (L) Skin exam: Present: warm, dry, intact, normal color. Absent: rash <Benjamin Maloney - Last Filed: 02/12/18 15:34> Vital Signs 02/12/18 15:08 Temperature 98.7 F Pulse Rate 84 Respiratory 18 Rate Blood Pressure 139/70 O2 Sat by Pulse 98 Oximetry Medical Decision Making <Benjamin Maloney - Last Filed: 02/12/18 15:34> - Lab Data Result diagrams: 02/12/18 16:02 02/12/18 16:02 <Ted Lees - Last Filed: 02/12/18 18:59> - Medical Decision Making Patient reexamined at this time shows no signs of distress at this time she is currently sitting up. She does admit that she still drinks and some discomfort left side of the abdomen is worse with certain movements. No abdominal wall hernia is appreciated on exam. Patient's CT of the abdomen was reviewed and shows no acute abnormalities. Patient's INR is 3.4. Patient advised to hold her dose of Coumadin tonight and follow-up the family doctor and also her surgeon. Advised to have INR rechecked in the next 2 days. Advised to return if symptoms increase or worsen. (Ted Lees) - Lab Data Lab Results 02/12/18 02/12/18 02/12/18 Range/Units 16:02 16:02 16:02 WBC 11.3 H (3.8-10.6) k/uL RBC 4.57 (3.80-5.40) m/uL Hgb 12.0 (11.4-16.0) gm/dL Hct 38.6 (34.0-46.0) % MCV 84.5 D (80.0-100.0) fL MCH 26.2 (25.0-35.0) pg MCHC 31.0 (31.0-37.0) g/dL RDW 16.6 H (11.5-15.5) % Plt Count 430 (150-450) k/uL Neutrophils % 69 % Lymphocytes % 17 % Monocytes % 8 % Eosinophils % 2 % Basophils % 1 % Neutrophils # 7.8 H (1.3-7.7) k/uL Lymphocytes # 2.0 (1.0-4.8) k/uL Monocytes # 0.9 (0-1.0) k/uL Eosinophils # 0.3 (0-0.7) k/uL Basophils # 0.1 (0-0.2) k/uL Hypochromasia Marked Anisocytosis Slight PT (9.0-12.0) sec INR (<1.2) APTT (22.0-30.0) sec Sodium 140 (137-145) mmol/L Potassium 4.7 (3.5-5.1) mmol/L Chloride 107 (98-107) mmol/L Carbon Dioxide 27 (22-30) mmol/L Anion Gap 6 mmol/L BUN 13 (7-17) mg/dL Creatinine 0.59 (0.52-1.04) mg/dL Est GFR (CKD-EPI)AfAm >90 (>60 ml/min/1.73 sqM) Est GFR (CKD-EPI)NonAf >90 (>60 ml/min/1.73 sqM) Glucose 74 (74-99) mg/dL Plasma Lactic Acid Tanner 0.8 (0.7-2.0) mmol/L Calcium 9.7 (8.4-10.2) mg/dL Total Bilirubin 0.2 (0.2-1.3) mg/dL AST 23 (14-36) U/L ALT 26 (9-52) U/L Alkaline Phosphatase 73 (38-126) U/L Total Protein 7.2 (6.3-8.2) g/dL Albumin 4.0 (3.5-5.0) g/dL Amylase 62 (30-110) U/L Lipase 91 (23-300) U/L Urine Color Urine Appearance (Clear) Urine pH (5.0-8.0) Ur Specific Mellette (1.001-1.035) Urine Protein (Negative) Urine Glucose (UA) (Negative) Urine Ketones (Negative) Urine Blood (Negative) Urine Nitrite (Negative) Urine Bilirubin (Negative) Urine Urobilinogen (<2.0) mg/dL Ur Leukocyte Esterase (Negative) Urine RBC (0-5) /hpf Ur Squamous Epith Cells (0-4) /hpf Urine Yeast (Budding) (None) /hpf 02/12/18 02/12/18 Range/Units 16:02 16:02 WBC (3.8-10.6) k/uL RBC (3.80-5.40) m/uL Hgb (11.4-16.0) gm/dL Hct (34.0-46.0) % MCV (80.0-100.0) fL MCH (25.0-35.0) pg MCHC (31.0-37.0) g/dL RDW (11.5-15.5) % Plt Count (150-450) k/uL Neutrophils % % Lymphocytes % % Monocytes % % Eosinophils % % Basophils % % Neutrophils # (1.3-7.7) k/uL Lymphocytes # (1.0-4.8) k/uL Monocytes # (0-1.0) k/uL Eosinophils # (0-0.7) k/uL Basophils # (0-0.2) k/uL Hypochromasia Anisocytosis PT 30.0 H (9.0-12.0) sec INR 3.4 H (<1.2) APTT 34.7 H (22.0-30.0) sec Sodium (137-145) mmol/L Potassium (3.5-5.1) mmol/L Chloride (98-107) mmol/L Carbon Dioxide (22-30) mmol/L Anion Gap mmol/L BUN (7-17) mg/dL Creatinine (0.52-1.04) mg/dL Est GFR (CKD-EPI)AfAm (>60 ml/min/1.73 sqM) Est GFR (CKD-EPI)NonAf (>60 ml/min/1.73 sqM) Glucose (74-99) mg/dL Plasma Lactic Acid Tanner (0.7-2.0) mmol/L Calcium (8.4-10.2) mg/dL Total Bilirubin (0.2-1.3) mg/dL AST (14-36) U/L ALT (9-52) U/L Alkaline Phosphatase (38-126) U/L Total Protein (6.3-8.2) g/dL Albumin (3.5-5.0) g/dL Amylase (30-110) U/L Lipase (23-300) U/L Urine Color Yellow Urine Appearance Cloudy H (Clear) Urine pH 8.0 (5.0-8.0) Ur Specific Mel[place] 1.016 (1.001-1.035) Urine Protein Negative (Negative) Urine Glucose (UA) Negative (Negative) Urine Ketones Negative (Negative) Urine Blood Negative (Negative) Urine Nitrite Negative (Negative) Urine Bilirubin Negative (Negative) Urine Urobilinogen <2.0 (<2.0) mg/dL Ur Leukocyte Esterase Negative (Negative) Urine RBC 4 (0-5) /hpf Ur Squamous Epith Cells 7 H (0-4) /hpf Urine Yeast (Budding) Moderate H (None) /hpf Disposition <Benjamin Maloney - Last Filed: 02/12/18 15:34> Is patient prescribed a controlled substance at d/c from ED?: No Time of Disposition: 18:59 <Ted Lees - Last Filed: 02/12/18 18:59> Clinical Impression: Abdominal pain Disposition: HOME SELF-CARE Condition: Good Instructions: Abdominal Pain (ED) Additional Instructions: Please use medication as discussed. Please follow-up with general surgeon/ family doctor in the next 2 days of symptoms have not improved. Please return to emergency room if the symptoms increase or worsen or for any other concerns. Referrals: Danish Nicholas DO [Primary Care Provider] - 1-2 days Cecelia Lopez DO [Doctor of Osteopathic Medicine] - 1-2 days
[2018-02-12 16:24] LABS: Appearance,Urine Cloudy (Clear); Bilirubin,Urine Negative (Negative); Blood,Urine Negative (Negative); Budding Yeast,Urine Moderate /hpf; Color,Urine Yellow; Glucose,Urine (UA) Negative (Negative); Ketones,Urine Negative (Negative); Leukocyte Esterase,Urine Negative (Negative); Nitrite,Urine Negative (Negative); Protein,Urine Negative (Negative); RBC,Urine 4 /hpf (0-5); Specific Gravity,Urine 1.016 (1.001-1.035); Squamous Epithelial Cell,Urine 7 /hpf (0-4); Urobilinogen,Urine <2.0 mg/dL (<2.0)
[2018-02-12 16:31] LABS: Anisocytosis Slight; Basophils # (A) 0.1 k/uL (0-0.2); Basophils % (A) 1 %; Eosinophils # (A) 0.3 k/uL (0-0.7); Eosinophils % (A) 2 %; HCT 38.6 % (34.0-46.0); Hypochromasia Marked; Lymphocytes % (A) 17 %; MCH 26.2 pg (25.0-35.0); Mean Platelet Volume 8.2; Monocytes # (A) 0.9 k/uL (0-1.0); Monocytes % (A) 8 %; Neutrophils # (A) 7.8 k/uL (1.3-7.7); Neutrophils % (A) 69 %; Platelet Count 430 k/uL (150-450); RBC 4.57 m/uL (3.80-5.40); RDW 16.6 % (11.5-15.5); WBC 11.3 k/uL (3.8-10.6)
[2018-02-12 16:32] LABS: ALT 26 U/L (9-52); AST 23 U/L (14-36); Alkaline Phosphatase 73 U/L (38-126); Amylase 62 U/L (30-110); Anion Gap 6 mmol/L; Blood Urea Nitrogen 13 mg/dL (7-17); Calcium 9.7 mg/dL (8.4-10.2); Carbon Dioxide 27 mmol/L (22-30); Chloride 107 mmol/L (98-107); Glucose 74 mg/dL (74-99); INR 3.4 (<1.2); Lipase 91 U/L (23-300); MCV 84.5 fL (80.0-100.0); Partial Thromboplastin Time 34.7 sec (22.0-30.0); Potassium 4.7 mmol/L (3.5-5.1); Sodium 140 mmol/L (137-145); Total Bilirubin 0.2 mg/dL (0.2-1.3); Total Protein 7.2 g/dL (6.3-8.2)
--- NOTE | 2018-02-12 18:22 | CT ---
EXAMINATION TYPE: CT abdomen pelvis w con DATE OF EXAM: 02/12/2018 COMPARISON: 10/05/2017 HISTORY: Left side abdominal pain. CT DLP: 1357.6 mGycm Automated exposure control for dose reduction was used. TECHNIQUE: Helical acquisition of images was performed from the lung bases through the pelvis. CONTRAST: Performed without Oral Contrast and with IV Contrast, patient injected with 100ml mL of Isovue 300. FINDINGS: LUNG BASES: Existing right lung base nodule is more bandlike presently, a benign feature. Still, none mergent chest CT is advised for full lung parenchymal evaluation. LIVER/GB: No significant abnormality is appreciated. PANCREAS: Interval resolution of the pancreatitis findings seen on the prior CT. No acute findings. SPLEEN: No significant abnormality is seen. ADRENALS: No significant abnormality is seen. KIDNEYS: No significant abnormality is seen. FREE AIR: No free air is visualized. RETROPERITONEAL ADENOPATHY: None visualized REPRODUCTIVE ORGANS: Multilobulated enlarged heterogenous uterus likely representing multiple leiomyo mas. Fullness of the left adnexa may represent a cyst and is similar to the prior exam. URINARY BLADDER: No significant abnormality is seen. PELVIC ADENOPATHY: None visualized. OSSEOUS STRUCTURES: No significant abnormality is seen. BOWEL: No significant abnormality is seen. VASCULATURE: No acute findings. IMPRESSION: NO DEFINITE ACUTE CT PROCESS.
== END 2018-02-12 19:25 | disposition home or self-care (01) ==
LOC: EC 14:56
DX: R10.32 Left lower quadrant pain (principal); R11.10 Vomiting, unspecified; I81 Portal vein thrombosis; K85.90 Acute pancreatitis without necrosis or infection, unspecified; E07.9 Disorder of thyroid, unspecified; F32.9 Major depressive disorder, single episode, unspecified; F17.200 Nicotine dependence, unspecified, uncomplicated; Z82.49 Family history of ischemic heart disease and other diseases of the circulatory system; Z88.0 Allergy status to penicillin; Z88.2 Allergy status to sulfonamides; Z79.01 Long term (current) use of anticoagulants; Z79.899 Other long term (current) drug therapy; Z90.81 Acquired absence of spleen
CPT/HCPCS: 99284; 36415; 80053; 82150; 83605; 83690; 85025; 85610; 85730; 81001; 87040; 74177; Q9967

== ENCOUNTER 2018-03-12 15:05 | Emergency (ER) | payer OTHER ==
[2018-03-12 15:30] VITALS: RESP 20
--- NOTE | 2018-03-12 15:50 | XR ---
EXAMINATION TYPE: XR chest 2V DATE OF EXAM: 03/12/2018 COMPARISON: Prior chest x-ray 09/13/2017 HISTORY: Cough, congestion, sore throat TECHNIQUE: Frontal and lateral views of the chest are obtained. FINDINGS: There is no focal air space opacity, pleural effusion, or pneumothorax seen. The cardiac silhouette size is within normal limits. The osseous structures are intact. IMPRESSION: No acute cardiopulmonary process.
[2018-03-12] MEDS ORDERED: SODIUM CHLORIDE 0.9% 1,000 ML IV STA (16:25)
--- NOTE | 2018-03-12 16:35 | ED ---
General Adult HPI - General Source: patient, RN notes reviewed Mode of arrival: ambulatory Limitations: no limitations <Ted Lees - Last Filed: 03/12/18 16:27> <Benjamin Maloney - Last Filed: 03/12/18 17:59> - General Chief complaint: Upper Respiratory Infection Stated complaint: Cough Time Seen by Provider: 03/12/18 15:29 - History of Present Illness Initial comments: Patient 47-year-old female presented to the emergency room today with a chief complaint of cough congestion over the last 5 days. Patient does admit to sputum production as been white in color. Does admit to some sore throat. Patient denies any fever at home. 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 Patient denies any complaints currently. 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 Patient denies any recent fever, chills, shortness of breath, chest pain, back pain, abdominal pain, nausea or vomiting, numbness or tingling, dysuria or hematuria, constipation or diarrhea, headaches or visual changes, or any other complaints. (Ted Lees) - Related Data Home Medications Medication Instructions Recorded Confirmed Escitalopram [Lexapro] 10 mg PO HS 08/25/17 03/12/18 ALPRAZolam [Xanax XR] 1 mg PO DAILY PRN 09/09/17 03/12/18 Acetaminophen [Tylenol] 1,000 mg PO Q4-6H PRN 02/12/18 03/12/18 Levothyroxine Sodium 100 mcg PO DAILY 02/12/18 03/12/18 Warfarin Sodium [Coumadin] 5 mg PO SUTUWETHSA 02/12/18 03/12/18 Warfarin Sodium [Coumadin] 7.5 mg PO MOFR 02/12/18 03/12/18 Previous Rx's Medication Instructions Recorded Levofloxacin [Levaquin] 500 mg PO DAILY #10 tab 03/12/18 Allergies Allergy/AdvReac Type Severity Reaction Status Date / Time Penicillins Allergy Rash/Hives Verified 03/12/18 15:23 sulfamethoxazole Allergy Hallucinati Verified 03/12/18 15:23 [From Bactrim] ons trimethoprim [From Bactrim] Allergy Hallucinati Verified 03/12/18 15:23 ons Review of Systems ROS Other: All systems not noted in ROS Statement are negative. <Ted Lees - Last Filed: 03/12/18 16:27> ROS Other: All systems not noted in ROS Statement are negative. <Benjamin Maloney - Last Filed: 03/12/18 17:59> ROS Statement: Those systems with pertinent positive or pertinent negative responses have been documented in the HPI. Past Medical History Past Medical History: Myocardial Infarction ([place]), Thyroid Disorder Additional Past Medical History / Comment(s): ovarian cyst and mass on uterus (), spontaneous spleen rupture, pancreatitis History of Any Multi-Drug Resistant Organisms: None Reported Past Surgical History: No Surgical Hx Reported Additional Past Surgical History / Comment(s): spleenectomy Past Anesthesia/Blood Transfusion Reactions: No Reported Reaction Past Psychological History: Depression Smoking Status: Current every day smoker Past Alcohol Use History: Rare Past Drug Use History: None Reported - Past Family History Mother Family Medical History: Hypertension, Rheumatoid Arthritis ([place]) Father Family Medical History: COPD, Myocardial Infarction ([place]) <Ted Lees - Last Filed: 03/12/18 16:27> General Exam Limitations: no limitations <Ted Lees - Last Filed: 03/12/18 16:27> <HaiderBenjamin Bryan - Last Filed: 03/12/18 17:59> - General Exam Comments Initial Comments: General: The patient is awake and alert, in no distress, and does not appear acutely ill. Eye: Pupils are equal, round and reactive to light. Extra-ocular movements are intact. No nystagmus. There is normal conjunctiva bilaterally. No signs of icterus. Ears, nose, mouth and throat: There are moist mucous membranes and no oral lesions. Neck: The neck is supple, there is no tenderness or JVD. Cardiovascular: There is a regular rate and rhythm. No murmur, rub or gallop is appreciated. Respiratory: Lungs are clear to auscultation, respirations are non-labored, breath sounds are equal. No wheezes, stridor, rales, or rhonchi. Musculoskeletal: Normal ROM, no tenderness. Sensation intact. Strength 5/5. Pulses equal bilaterally 2+. Neurological: A&O x 3. CN II-XII intact, There are no obvious motor or sensory deficits. Coordination appears grossly intact. Speech is normal. Skin: Skin is warm and dry and no rashes or lesions are noted. Psychiatric: Cooperative, appropriate mood & affect, normal judgment. (Ted Lees) Vital Signs 03/12/18 15:24 Temperature 98.5 F Pulse Rate 81 Respiratory 20 Rate Blood Pressure 143/96 O2 Sat by Pulse 100 Oximetry Medical Decision Making <Ted Lees - Last Filed: 03/12/18 16:27> - Lab Data Result diagrams: 03/12/18 16:45 03/12/18 16:45 <Benjamin Maloney - Last Filed: 03/12/18 17:59> - Medical Decision Making 47-year-old female presented for cough congestion. This was a sign out from Ted Lees PA-C. Patient had chest x-ray which was initially negative for any acute cardiopulmonary process. Though given patient's history of splenectomy lab work was obtained. She has minimally elevated white count though vitals are stable and she states that she feels improved at this time. I did explain that she'll be discharged on Levaquin and that she is to be seen within 24 hours for repeat evaluation and she is return for any change or worsening of her symptoms. (Benjamin Maloney) - Lab Data Lab Results 03/12/18 03/12/18 03/12/18 Range/Units 16:45 16:45 16:45 WBC 15.7 H (3.8-10.6) k/uL RBC 4.47 (3.80-5.40) m/uL Hgb 11.4 (11.4-16.0) gm/dL Hct 37.2 (34.0-46.0) % MCV 83.2 (80.0-100.0) fL MCH 25.6 (25.0-35.0) pg MCHC 30.7 L (31.0-37.0) g/dL RDW 15.6 H (11.5-15.5) % Plt Count 425 (150-450) k/uL Neutrophils % 70 % Lymphocytes % 17 % Monocytes % 7 % Eosinophils % 2 % Basophils % 1 % Neutrophils # 11.1 H (1.3-7.7) k/uL Lymphocytes # 2.7 (1.0-4.8) k/uL Monocytes # 1.1 H (0-1.0) k/uL Eosinophils # 0.3 (0-0.7) k/uL Basophils # 0.1 (0-0.2) k/uL Hypochromasia Marked Poikilocytosis Slight PT (9.0-12.0) sec INR (<1.2) APTT (22.0-30.0) sec Sodium 140 (137-145) mmol/L Potassium 4.7 (3.5-5.1) mmol/L Chloride 108 H (98-107) mmol/L Carbon Dioxide 25 (22-30) mmol/L Anion Gap 7 mmol/L BUN 11 (7-17) mg/dL Creatinine 0.51 L (0.52-1.04) mg/dL Est GFR (CKD-EPI)AfAm >90 (>60 ml/min/1.73 sqM) Est GFR (CKD-EPI)NonAf >90 (>60 ml/min/1.73 sqM) Glucose 81 (74-99) mg/dL Calcium 9.3 (8.4-10.2) mg/dL Total Bilirubin 0.6 (0.2-1.3) mg/dL AST 25 (14-36) U/L ALT 26 (9-52) U/L Alkaline Phosphatase 83 (38-126) U/L Total Protein 7.3 (6.3-8.2) g/dL Albumin 4.0 (3.5-5.0) g/dL Urine Color Urine Appearance (Clear) Urine pH (5.0-8.0) Ur Specific Powell (1.001-1.035) Urine Protein (Negative) Urine Glucose (UA) (Negative) Urine Ketones (Negative) Urine Blood (Negative) Urine Nitrite (Negative) Urine Bilirubin (Negative) Urine Urobilinogen (<2.0) mg/dL Ur Leukocyte Esterase (Negative) Influenza Type A RNA Not Detected (Not Detectd) Influenza Type B (PCR) Not Detected (Not Detectd) 03/12/18 03/12/18 Range/Units 16:45 16:45 WBC (3.8-10.6) k/uL RBC (3.80-5.40) m/uL Hgb (11.4-16.0) gm/dL Hct (34.0-46.0) % MCV (80.0-100.0) fL MCH (25.0-35.0) pg MCHC (31.0-37.0) g/dL RDW (11.5-15.5) % Plt Count (150-450) k/uL Neutrophils % % Lymphocytes % % Monocytes % % Eosinophils % % Basophils % % Neutrophils # (1.3-7.7) k/uL Lymphocytes # (1.0-4.8) k/uL Monocytes # (0-1.0) k/uL Eosinophils # (0-0.7) k/uL Basophils # (0-0.2) k/uL Hypochromasia Poikilocytosis PT 15.9 H (9.0-12.0) sec INR 1.7 H (<1.2) APTT 33.1 H (22.0-30.0) sec Sodium (137-145) mmol/L Potassium (3.5-5.1) mmol/L Chloride (98-107) mmol/L Carbon Dioxide (22-30) mmol/L Anion Gap mmol/L BUN (7-17) mg/dL Creatinine (0.52-1.04) mg/dL Est GFR (CKD-EPI)AfAm (>60 ml/min/1.73 sqM) Est GFR (CKD-EPI)NonAf (>60 ml/min/1.73 sqM) Glucose (74-99) mg/dL Calcium (8.4-10.2) mg/dL Total Bilirubin (0.2-1.3) mg/dL AST (14-36) U/L ALT (9-52) U/L Alkaline Phosphatase (38-126) U/L Total Protein (6.3-8.2) g/dL Albumin (3.5-5.0) g/dL Urine Color Yellow Urine Appearance Clear (Clear) Urine pH 6.5 (5.0-8.0) Ur Specific Powell 1.018 (1.001-1.035) Urine Protein Negative (Negative) Urine Glucose (UA) Negative (Negative) Urine Ketones Negative (Negative) Urine Blood Negative (Negative) Urine Nitrite Negative (Negative) Urine Bilirubin Negative (Negative) Urine Urobilinogen <2.0 (<2.0) mg/dL Ur Leukocyte Esterase Negative (Negative) Influenza Type A RNA (Not Detectd) Influenza Type B (PCR) (Not Detectd) Disposition <Ted Lees - Last Filed: 03/12/18 16:27> Is patient prescribed a controlled substance at d/c from ED?: No Time of Disposition: 17:59 <Benjamin Maloney - Last Filed: 03/12/18 17:59> Clinical Impression: Acute bronchitis Disposition: HOME SELF-CARE Condition: Stable Instructions: Acute Bronchitis (ED) Additional Instructions: Please have her recheck with her PCP. Please monitor INR as you are on antibiotics in this may elevate your INR. Please return to the Emergency Department if symptoms worsen or any other concerns. Prescriptions: Levofloxacin [Levaquin] 500 mg PO DAILY #10 tab Referrals: Danish Nicholas DO [Primary Care Provider] - 1-2 days
[2018-03-12 17:19] LABS: Appearance,Urine Clear (Clear); Bilirubin,Urine Negative (Negative); Blood,Urine Negative (Negative); Color,Urine Yellow; Glucose,Urine (UA) Negative (Negative); Ketones,Urine Negative (Negative); Leukocyte Esterase,Urine Negative (Negative); Nitrite,Urine Negative (Negative); PH, Urine 6.5 (5.0-8.0); Protein,Urine Negative (Negative); Specific Gravity,Urine 1.018 (1.001-1.035); Urobilinogen,Urine <2.0 mg/dL (<2.0)
[2018-03-12 17:30] LABS: INR 1.7 (<1.2); Partial Thromboplastin Time 33.1 sec (22.0-30.0); Prothrombin Time 15.9 sec (9.0-12.0)
[2018-03-12 17:31] LABS: Basophils # (A) 0.1 k/uL (0-0.2); Basophils % (A) 1 %; Eosinophils # (A) 0.3 k/uL (0-0.7); Eosinophils % (A) 2 %; HCT 37.2 % (34.0-46.0); HGB 11.4 gm/dL (11.4-16.0); Hypochromasia Marked; Lymphocytes # (A) 2.7 k/uL (1.0-4.8); Lymphocytes % (A) 17 %; MCH 25.6 pg (25.0-35.0); MCHC 30.7 g/dL (31.0-37.0); MCV 83.2 fL (80.0-100.0); Mean Platelet Volume 8.8; Monocytes # (A) 1.1 k/uL (0-1.0); Monocytes % (A) 7 %; Neutrophils # (A) 11.1 k/uL (1.3-7.7); Neutrophils % (A) 70 %; Platelet Count 425 k/uL (150-450); Poikilocytosis Slight; RBC 4.47 m/uL (3.80-5.40); RDW 15.6 % (11.5-15.5); WBC 15.7 k/uL (3.8-10.6)
[2018-03-12 17:33] LABS: ALT 26 U/L (9-52); AST 25 U/L (14-36); Alkaline Phosphatase 83 U/L (38-126); Anion Gap 7 mmol/L; Blood Urea Nitrogen 11 mg/dL (7-17); Calcium 9.3 mg/dL (8.4-10.2); Carbon Dioxide 25 mmol/L (22-30); Chloride 108 mmol/L (98-107); Glucose 81 mg/dL (74-99); Potassium 4.7 mmol/L (3.5-5.1); Sodium 140 mmol/L (137-145); Total Bilirubin 0.6 mg/dL (0.2-1.3); Total Protein 7.3 g/dL (6.3-8.2)
[2018-03-12 18:09] VITALS: BP 138/84; PULSE 66; TEMP 98.3
== END 2018-03-12 18:08 | disposition home or self-care (01) ==
LOC: EC 15:05
DX: J20.9 Acute bronchitis, unspecified (principal); D72.829 Elevated white blood cell count, unspecified; I25.2 Old myocardial infarction; E07.9 Disorder of thyroid, unspecified; F32.9 Major depressive disorder, single episode, unspecified; F17.200 Nicotine dependence, unspecified, uncomplicated; Z79.01 Long term (current) use of anticoagulants; Z79.899 Other long term (current) drug therapy; Z88.2 Allergy status to sulfonamides; Z88.0 Allergy status to penicillin
CPT/HCPCS: 36415; 80053; 85025; 85610; 85730; 81003; 87040; 87502; 71046; 99283; 96365; J0696

== ENCOUNTER 2018-06-12 19:11 | Emergency (ER) | payer OTHER ==
--- NOTE | 2018-06-12 20:30 | ED ---
General Adult HPI - General Chief complaint: Abdominal Pain Stated complaint: abdominal pain Time Seen by Provider: 06/12/18 19:42 Source: patient Mode of arrival: ambulatory Limitations: no limitations - History of Present Illness Initial comments: Dictation was produced using [employer] dictation software. please excuse any grammatical, word or spelling errors. Chief Complaint: 48-year-old female past medical history of blood clot , splenectomy presents with suprapubic abdominal pain. History of Present Illness: 48-year-old female presents with suprapubic abdominal pain. Patient states that she's been feeling discomfort over the suprapubic area since today. Patient states she has a history of fibroids and ovarian cysts. She states that symptoms have been constant and progressive. She states that there midline with no radiation laterally. Denies any constitutional symptoms. Patient does not have any nausea vomiting. No diarrhea. The ROS documented in this emergency department record has been reviewed and confirmed by me. Those systems with pertinent positive or negative responses have been documented in the HPI. All other systems are other negative and/or noncontributory. PHYSICAL EXAM: General Impression: Alert and oriented x3, not in acute distress HEENT: Normocephalic atraumatic, extra-ocular movements intact, pupils equal and reactive to light bilaterally, mucous membranes moist. Cardiovascular: Heart regular rate and rhythm, S1&S2 audible, no murmurs, rubs or gallops Chest: Lungs clear to auscultation bilaterally, no rhonchi, no wheeze, no rales Abdomen: Bowel sounds present, abdomen soft, mild tenderness to the suprapubic area Musculoskeletal: Pulses present and equal in all extremities, no peripheral edema Motor: Power 5/5 bilaterally, no focal deficits noted Neurological: CN II-XII grossly intact, no focal motor or sensory deficits noted Skin: Intact with no visualized rashes Psych: Normal affect and mood ED course: 48-year-old female presents with chief complaint of suprapubic pain. She has a history of splenectomy. She is on Coumadin for postoperative blood clot vital signs upon arrival are within acceptable limits. Laboratory evaluation obtained. Patient has mild leukocytosis of 12.3 likely secondary to splenectomy. Rest of labs grossly unremarkable. INR is 1.0 which is subtherapeutic for her if she is on Coumadin. Metabolic panel is negative. Urinalysis is unremarkable. Transvaginal ultrasound shows no adnexal mass. There is no evidence of torsion. There is cervical cyst and mild thickening of the endometrium consistent with hyperplasia. Patient told that these symptoms could be pathologic and should be evaluated by [facility]. Patient is understandable and agreeable. Patient refusing pelvic exam. Believe this is reasonable given that patient appears well has normal vitals and has benign laboratory evaluation. Patient clear for discharge. - Related Data Home Medications Medication Instructions Recorded Confirmed Escitalopram [Lexapro] 10 mg PO HS 08/25/17 03/12/18 ALPRAZolam [Xanax XR] 1 mg PO DAILY PRN 09/09/17 03/12/18 Acetaminophen [Tylenol] 1,000 mg PO Q4-6H PRN 02/12/18 03/12/18 Levothyroxine Sodium 100 mcg PO DAILY 02/12/18 03/12/18 Warfarin Sodium [Coumadin] 5 mg PO SUTUWETHSA 02/12/18 03/12/18 Warfarin Sodium [Coumadin] 7.5 mg PO MOFR 02/12/18 03/12/18 Previous Rx's Medication Instructions Recorded Levofloxacin [Levaquin] 500 mg PO DAILY #10 tab 03/12/18 Allergies Allergy/AdvReac Type Severity Reaction Status Date / Time Penicillins Allergy Rash/Hives Verified 06/12/18 21:39 sulfamethoxazole Allergy Hallucinati Verified 06/12/18 21:39 [From Bactrim] ons trimethoprim [From Bactrim] Allergy Hallucinati Verified 06/12/18 21:39 ons Review of Systems ROS Statement: Those systems with pertinent positive or pertinent negative responses have been documented in the HPI. ROS Other: All systems not noted in ROS Statement are negative. Past Medical History Past Medical History: Myocardial Infarction ([place]), Thyroid Disorder Additional Past Medical History / Comment(s): ovarian cyst and mass on uterus (), spontaneous spleen rupture, pancreatitis History of Any Multi-Drug Resistant Organisms: None Reported Past Surgical History: No Surgical Hx Reported Additional Past Surgical History / Comment(s): spleenectomy Past Anesthesia/Blood Transfusion Reactions: No Reported Reaction Past Psychological History: Depression Smoking Status: Current every day smoker Past Alcohol Use History: Rare Past Drug Use History: None Reported - Past Family History Mother Family Medical History: Hypertension, Rheumatoid Arthritis ([place]) Father Family Medical History: COPD, Myocardial Infarction ([place]) General Exam Limitations: no limitations Course Vital Signs 06/12/18 19:16 Temperature 98.3 F Pulse Rate 81 Respiratory 20 Rate Blood Pressure 163/75 O2 Sat by Pulse 98 Oximetry Medical Decision Making - Lab Data Result diagrams: 06/12/18 20:43 06/12/18 20:43 Lab Results 06/12/18 06/12/18 06/12/18 Range/Units 20:43 20:43 20:43 WBC 12.3 H (3.8-10.6) k/uL RBC 4.19 (3.80-5.40) m/uL Hgb 9.9 L (11.4-16.0) gm/dL Hct 32.4 L (34.0-46.0) % MCV 77.3 L (80.0-100.0) fL MCH 23.5 L (25.0-35.0) pg MCHC 30.4 L (31.0-37.0) g/dL RDW 17.9 H (11.5-15.5) % Plt Count 400 (150-450) k/uL Neutrophils % 64 % Lymphocytes % 24 % Monocytes % 6 % Eosinophils % 3 % Basophils % 1 % Neutrophils # 7.9 H (1.3-7.7) k/uL Lymphocytes # 2.9 (1.0-4.8) k/uL Monocytes # 0.8 (0-1.0) k/uL Eosinophils # 0.3 (0-0.7) k/uL Basophils # 0.1 (0-0.2) k/uL Hypochromasia Marked Poikilocytosis Slight Anisocytosis Slight Microcytosis Slight PT 10.4 (9.0-12.0) sec INR 1.0 (<1.2) Sodium 140 (137-145) mmol/L Potassium 4.5 (3.5-5.1) mmol/L Chloride 110 H (98-107) mmol/L Carbon Dioxide 26 (22-30) mmol/L Anion Gap 4 mmol/L BUN 14 (7-17) mg/dL Creatinine 0.65 (0.52-1.04) mg/dL Est GFR (CKD-EPI)AfAm >90 (>60 ml/min/1.73 sqM) Est GFR (CKD-EPI)NonAf >90 (>60 ml/min/1.73 sqM) Glucose 92 (74-99) mg/dL Calcium 9.5 (8.4-10.2) mg/dL Urine Color Urine Appearance (Clear) Urine pH (5.0-8.0) Ur Specific [place] (1.001-1.035) Urine Protein (Negative) Urine Glucose (UA) (Negative) Urine Ketones (Negative) Urine Blood (Negative) Urine Nitrite (Negative) Urine Bilirubin (Negative) Urine Urobilinogen (<2.0) mg/dL Ur Leukocyte Esterase (Negative) Ur Squamous Epith Cells (0-4) /hpf Urine Mucus (None) /hpf 06/12/18 Range/Units 20:43 WBC (3.8-10.6) k/uL RBC (3.80-5.40) m/uL Hgb (11.4-16.0) gm/dL Hct (34.0-46.0) % MCV (80.0-100.0) fL MCH (25.0-35.0) pg MCHC (31.0-37.0) g/dL RDW (11.5-15.5) % Plt Count (150-450) k/uL Neutrophils % % Lymphocytes % % Monocytes % % Eosinophils % % Basophils % % Neutrophils # (1.3-7.7) k/uL Lymphocytes # (1.0-4.8) k/uL Monocytes # (0-1.0) k/uL Eosinophils # (0-0.7) k/uL Basophils # (0-0.2) k/uL Hypochromasia Poikilocytosis Anisocytosis Microcytosis PT (9.0-12.0) sec INR (<1.2) Sodium (137-145) mmol/L Potassium (3.5-5.1) mmol/L Chloride (98-107) mmol/L Carbon Dioxide (22-30) mmol/L Anion Gap mmol/L BUN (7-17) mg/dL Creatinine (0.52-1.04) mg/dL Est GFR (CKD-EPI)AfAm (>60 ml/min/1.73 sqM) Est GFR (CKD-EPI)NonAf (>60 ml/min/1.73 sqM) Glucose (74-99) mg/dL Calcium (8.4-10.2) mg/dL Urine Color Yellow Urine Appearance Cloudy H (Clear) Urine pH 7.0 (5.0-8.0) Ur Specific [place] 1.018 (1.001-1.035) Urine Protein Negative (Negative) Urine Glucose (UA) Negative (Negative) Urine Ketones Negative (Negative) Urine Blood Trace H (Negative) Urine Nitrite Negative (Negative) Urine Bilirubin Negative (Negative) Urine Urobilinogen 2.0 (<2.0) mg/dL Ur Leukocyte Esterase Negative (Negative) Ur Squamous Epith Cells 2 (0-4) /hpf Urine Mucus Rare H (None) /hpf Disposition Clinical Impression: Suprapubic pain Disposition: HOME SELF-CARE Condition: Fair Instructions (If sedation given, give patient instructions): Pelvic Pain in Women (ED) Is patient prescribed a controlled substance at d/c from ED?: No Referrals: Danish Nicholas DO [Primary Care Provider] - 1-2 days Mayra Berg DO [Doctor of Osteopathic Medicine] - 1-2 days Time of Disposition: 21:41
[2018-06-12 20:59] LABS: Anisocytosis Slight; Basophils # (A) 0.1 k/uL (0-0.2); Basophils % (A) 1 %; Eosinophils # (A) 0.3 k/uL (0-0.7); Eosinophils % (A) 3 %; HCT 32.4 % (34.0-46.0); HGB 9.9 gm/dL (11.4-16.0); Hypochromasia Marked; Lymphocytes # (A) 2.9 k/uL (1.0-4.8); Lymphocytes % (A) 24 %; MCH 23.5 pg (25.0-35.0); MCHC 30.4 g/dL (31.0-37.0); MCV 77.3 fL (80.0-100.0); Microcytosis Slight; Monocytes # (A) 0.8 k/uL (0-1.0); Monocytes % (A) 6 %; Neutrophils # (A) 7.9 k/uL (1.3-7.7); Neutrophils % (A) 64 %; Platelet Count 400 k/uL (150-450); Poikilocytosis Slight; RBC 4.19 m/uL (3.80-5.40); RDW 17.9 % (11.5-15.5); WBC 12.3 k/uL (3.8-10.6)
[2018-06-12 21:03] LABS: Appearance,Urine Cloudy (Clear); Bilirubin,Urine Negative (Negative); Blood,Urine Trace (Negative); Color,Urine Yellow; Glucose,Urine (UA) Negative (Negative); Ketones,Urine Negative (Negative); Leukocyte Esterase,Urine Negative (Negative); Mucus,Urine Rare /hpf; Nitrite,Urine Negative (Negative); Protein,Urine Negative (Negative); Specific Gravity,Urine 1.018 (1.001-1.035); Squamous Epithelial Cell,Urine 2 /hpf (0-4)
[2018-06-12 21:09] LABS: Prothrombin Time 10.4 sec (9.0-12.0)
[2018-06-12 21:12] LABS: Anion Gap 4 mmol/L; Blood Urea Nitrogen 14 mg/dL (7-17); Calcium 9.5 mg/dL (8.4-10.2); Carbon Dioxide 26 mmol/L (22-30); Chloride 110 mmol/L (98-107); Glucose 92 mg/dL (74-99); Potassium 4.5 mmol/L (3.5-5.1); Sodium 140 mmol/L (137-145)
--- NOTE | 2018-06-12 21:29 | US ---
EXAMINATION TYPE: US transvaginal DATE OF EXAM: 06/12/2018 COMPARISON: NONE CLINICAL HISTORY: Pain. Pain TECHNIQUE: Transvaginal (TV). EXAM MEASUREMENTS: Uterus: 9.8 x 6.9 x 8.0 cm Endometrial Stripe: 1.6 cm Right Ovary: 2.8 x 1.9 x 2.7 cm 1. Uterus: Anteverted Bulky enlarged heterogenous. Multiple fibroids seen largest 3.2 x 3.6 x 3.1c m. Nabothian cysts seen largest 1.2 x 1.3 x .9 cm. 2. Endometrium: Thickened. 3. Right Ovary: wnl 4. Left Ovary: Obscured by overlying bowel gas Spectral, color and waveform doppler imaging shows good arterial and venous flow within the right o vary; there is no evidence for ovarian torsion. 5. Bilateral Adnexa: wnl 6. Posterior cul-de-sac: wnl IMPRESSION: No adnexal mass. No evidence of ovarian torsion. Cervical cysts are noted. Mild thickenin g of the endometrium consistent with hyperplasia.
[2018-06-12 21:44] VITALS: BP 127/63; PULSE 68; RESP 18; TEMP 99.3
== END 2018-06-12 21:49 | disposition home or self-care (01) ==
LOC: EC 19:11
DX: R10.9 Unspecified abdominal pain (principal); D72.829 Elevated white blood cell count, unspecified; N88.8 Other specified noninflammatory disorders of cervix uteri; R93.89 Abnormal findings on diagnostic imaging of other specified body structures; I25.2 Old myocardial infarction; E07.9 Disorder of thyroid, unspecified; F32.9 Major depressive disorder, single episode, unspecified; Z79.01 Long term (current) use of anticoagulants; Z79.890 Hormone replacement therapy; Z79.899 Other long term (current) drug therapy; Z88.0 Allergy status to penicillin; Z88.1 Allergy status to other antibiotic agents; Z88.2 Allergy status to sulfonamides; Z90.81 Acquired absence of spleen
CPT/HCPCS: 36415; 76830; 80048; 81001; 85025; 85610; 93976; 99284

== ENCOUNTER 2018-07-29 17:42 | Emergency (ER) | payer OTHER ==
[2018-07-29 18:02] VITALS: BP 148/70; PULSE 78; RESP 16; TEMP 99.1
--- NOTE | 2018-07-29 18:30 | ED ---
Abdominal Pain HPI - General Chief Complaint: Abdominal Pain Stated Complaint: SOB/lump on stomach Time Seen by Provider: 07/29/18 18:15 Source: patient, RN notes reviewed, old records reviewed Mode of arrival: ambulatory Limitations: no limitations - History of Present Illness Initial Comments: Patient is a 48-year-old female who presents emergency department today with complaints of protrusion from her incision site for the past week. Patient reports she had a splenectomy in [place] [address] Lopez. Patient states that over the past week she's noticed she used that she's had a protrusion from around her incision site and will go down. Patient states that sometimes takes her feel short of breath. Patient states that she's had no nausea or vomiting. She denies any changes in stools. Patient states that she has had no fevers or chills. She states that she has a known spot on her chest x-ray on the right side is being monitored by her PCP. Patient denies any recent fever, chills, shortness of breath, chest pain, back pain,nausea vomiting, numbness or tingling, dysuria or hematuria, constipation or diarrhea, headaches or visual changes, or any other current symptoms - Related Data Home Medications Medication Instructions Recorded Confirmed Escitalopram [Lexapro] 10 mg PO HS 08/25/17 06/12/18 ALPRAZolam [Xanax XR] 1 mg PO DAILY PRN 09/09/17 06/12/18 Levothyroxine Sodium 100 mcg PO DAILY 02/12/18 06/12/18 Warfarin [Coumadin] 2.5 mg PO DAILY 06/12/18 06/12/18 Allergies Allergy/AdvReac Type Severity Reaction Status Date / Time Penicillins Allergy Rash/Hives Verified 07/29/18 18:02 sulfamethoxazole Allergy Hallucinati Verified 07/29/18 18:02 [From Bactrim] ons trimethoprim [From Bactrim] Allergy Hallucinati Verified 07/29/18 18:02 ons Review of Systems ROS Statement: Those systems with pertinent positive or pertinent negative responses have been documented in the HPI. ROS Other: All systems not noted in ROS Statement are negative. Past Medical History Past Medical History: Myocardial Infarction ([place]), Thyroid Disorder Additional Past Medical History / Comment(s): ovarian cyst and mass on uterus (08/2017), spontaneous spleen rupture, pancreatitis History of Any Multi-Drug Resistant Organisms: None Reported Past Surgical History: No Surgical Hx Reported Additional Past Surgical History / Comment(s): spleenectomy Past Anesthesia/Blood Transfusion Reactions: No Reported Reaction Past Psychological History: Depression Smoking Status: Current every day smoker Past Alcohol Use History: Rare Past Drug Use History: None Reported - Past Family History Mother Family Medical History: Hypertension, Rheumatoid Arthritis ([place]) Father Family Medical History: COPD, Myocardial Infarction ([place]) General Exam - General Exam Comments Initial Comments: 48-year-old female. Alert and oriented 3. No distress. General: Well appearing, well nourished, in no distress. Oriented x 3, normal mood and affect . Ambulating without difficulty. Skin: Good turgor, no rash, unusual bruising or prominent lesions Hair: Normal texture and distribution. HEENT: Head: Normocephalic, atraumatic, no visible or palpable masses, depressions, or scaring. Eyes: Visual acuity intact, conjunctiva clear, sclera non-icteric, EOM intact, PERRL. Ears: EACs clear, TMs translucent & cone of light visualized. hearing intact. Nose: No external lesions, mucosa non-inflamed, septum and turbinates normal Mouth: Mucous membranes moist, no mucosal lesions. Teeth/Gums: No obvious caries or periodontal disease. No gingival inflammation or significant resorption. Pharynx: Mucosa non-inflamed, no tonsillar hypertrophy or exudate Neck: Supple, without lesions, bruits, or adenopathy, thyroid non-enlarged and non-tender Heart: No cardiomegaly or thrills; regular rate and rhythm, no murmur or gallop Lungs: Clear to auscultation and percussion Abdomen: Bowel sounds normal, Patient has a 4 cm x 5 cm mid abdominal incisional hernia from recent splenectomy. No signs of incarceration. No skin changes. Hernia is easily reducible. Back: Spine normal without deformity or tenderness, no CVA tenderness Rectal: Normal sphincter tone, no hemorrhoids or masses palpable Extremities: No amputations or deformities, cyanosis, edema or varicosities, peripheral pulses intact Musculoskeletal: Normal gait and station. No misalignment, asymmetry, crepitation, defects, tenderness, masses, effusions, decreased range of motion, instability, atrophy or abnormal strength or tone in the head, neck, spine, ribs, pelvis or extremities. Neurologic: CN 2-12 normal. Sensation to pain, touch, and proprioception normal. DTRs normal in upper and lower extremities. No pathologic reflexes. Psychiatric: Oriented X3, intact recent and remote memory, judgment and insight, normal mood and affect. Limitations: no limitations Course Vital Signs 07/29/18 17:59 Temperature 99.1 F Pulse Rate 78 Respiratory 16 Rate Blood Pressure 148/70 O2 Sat by Pulse 98 Oximetry Medical Decision Making - Medical Decision Making Well-appearing 48-year-old female presents today for the past week of protrusion from her incision site whenever she eats. She has evidence of a incisional midabdomen hernia. Easily reducible. Chest x-ray and KUB are unremarkable. No sign of obstruction. Patient's vital signs are stable lungs are clear to auscultation. I discussed patient's shortness of breath symptoms are related to dilation of her stomach pressing onto the site and causing some irritation of her diaphragm. I discussed me shows she has small meals. Discussed that she should follow-up with her surgeon. Patient agrees to treatment plan will comply. Return parameters were discussed. - Radiology Data Radiology results: report reviewed No active cardiopulmonary disease. No changes. Nonacute abdomen. No change. Bowel gas. His normal. Disposition Clinical Impression: Incisional hernia Disposition: HOME SELF-CARE Condition: Good Instructions (If sedation given, give patient instructions): Incisional Hernia (DC) Additional Instructions: Patient advised to follow-up with primary care doctor and her surgeon. Patient needs to have small meals. If the area ever becomes red or nonreducible please return to emergency department at once. Follow-up with Dr. Lopez for possible incisional hernia repair. Is patient prescribed a controlled substance at d/c from ED?: No Referrals: Danish Nicholas DO [Primary Care Provider] - 1-2 days Cecelia Lopez DO [Doctor of Osteopathic Medicine] - 1-2 days Time of Disposition: 18:48
--- NOTE | 2018-07-29 18:45 | XR ---
EXAMINATION TYPE: XR KUB DATE OF EXAM: 07/29/2018 COMPARISON: 08/25/2017 HISTORY: Abdominal swelling and pain TECHNIQUE: 2 views FINDINGS: The bowel gas pattern is normal. There is no sign of intestinal obstruction or pneumoperito neum. Fecal pattern is normal. Lung bases are clear. There are no pathologic calcifications. IMPRESSION: Nonacute abdomen. No change.
--- NOTE | 2018-07-29 18:46 | XR ---
EXAMINATION TYPE: XR chest 2V DATE OF EXAM: 07/29/2018 COMPARISON: 03/12/2018 HISTORY: Short of breath TECHNIQUE: Frontal and lateral views of the chest are obtained. FINDINGS: There is no heart failure nor confluent pneumonic infiltrate. Costophrenic angles are carly r. Bony thorax is intact. Heart size is fairly normal. IMPRESSION: No active cardiopulmonary disease. No change.
== END 2018-07-29 19:06 | disposition home or self-care (01) ==
LOC: EC 17:42
DX: K43.2 Incisional hernia without obstruction or gangrene (principal); I25.2 Old myocardial infarction; E07.9 Disorder of thyroid, unspecified; F32.9 Major depressive disorder, single episode, unspecified; F17.200 Nicotine dependence, unspecified, uncomplicated; Z79.890 Hormone replacement therapy; Z79.01 Long term (current) use of anticoagulants; Z79.899 Other long term (current) drug therapy; Z88.0 Allergy status to penicillin; Z88.1 Allergy status to other antibiotic agents; Z88.2 Allergy status to sulfonamides
CPT/HCPCS: 71046; 74018; 99284

== ENCOUNTER 2018-08-19 12:10 | Emergency (ER) | payer OTHER ==
[2018-08-19 12:21] VITALS: TEMP 98.2
--- NOTE | 2018-08-19 12:37 | ED ---
Abdominal Pain HPI - General Chief Complaint: Abdominal Pain Stated Complaint: hernia pain Time Seen by Provider: 08/19/18 12:36 Source: patient, RN notes reviewed, old records reviewed Mode of arrival: ambulatory Limitations: no limitations - History of Present Illness Initial Comments: This is a 48-year-old female the ER for evaluation. Patient presents today to evaluate and regards to abdominal pain. Patient does have history of significant abdominal surgery regarding a splenectomy. She has known hernia incisional ventral hernias. Patient states she is not feeling this is her normal abdominal pain. She is also packet tenderness does not feel similar to that as well. No nausea vomiting no fevers, no muffled modifying factors for his current abdominal pain. No dysuria or diarrhea MD Complaint: abdominal pain -: days(s) Location: diffuse Radiation: epigastric Migration to: no migration Severity: moderate Severity scale (1-10): 5 Quality: cramping, aching Consistency: constant Improves With: nothing Worsens With: nothing Context: recent surgery/procedure Associated Symptoms: nausea - Related Data Home Medications Medication Instructions Recorded Confirmed Escitalopram [Lexapro] 10 mg PO HS 08/25/17 08/19/18 ALPRAZolam [Xanax XR] 1 mg PO DAILY 09/09/17 08/19/18 Levothyroxine Sodium 100 mcg PO DAILY 02/12/18 08/19/18 Acetaminophen Tab [Tylenol Tab] 1,000 mg PO Q6HR PRN 08/19/18 08/19/18 Aspirin EC [Ecotrin] 325 mg PO HS 08/19/18 08/19/18 Allergies Allergy/AdvReac Type Severity Reaction Status Date / Time Penicillins Allergy Rash/Hives Verified 08/19/18 12:57 sulfamethoxazole Allergy Hallucinati Verified 08/19/18 12:57 [From Bactrim] ons trimethoprim [From Bactrim] Allergy Hallucinati Verified 08/19/18 12:57 ons Review of Systems ROS Statement: Those systems with pertinent positive or pertinent negative responses have been documented in the HPI. ROS Other: All systems not noted in ROS Statement are negative. Past Medical History Past Medical History: Myocardial Infarction ([place]), Thyroid Disorder Additional Past Medical History / Comment(s): ovarian cyst and mass on uterus (08/2017), spontaneous spleen rupture, pancreatitis History of Any Multi-Drug Resistant Organisms: None Reported Past Surgical History: No Surgical Hx Reported Additional Past Surgical History / Comment(s): spleenectomy Past Anesthesia/Blood Transfusion Reactions: No Reported Reaction Past Psychological History: Depression Smoking Status: Current every day smoker Past Alcohol Use History: Rare Past Drug Use History: None Reported - Past Family History Mother Family Medical History: Hypertension, Rheumatoid Arthritis (RA) Father Family Medical History: COPD, Myocardial Infarction ([place]) General Exam - General Exam Comments Initial Comments: Significant vertical midline abdominal incision, no significant hernia palpated Limitations: no limitations General appearance: alert, in no apparent distress, obese Head exam: Present: atraumatic, normocephalic, normal inspection Eye exam: Present: normal appearance, PERRL, EOMI. Absent: scleral icterus, conjunctival injection, periorbital swelling ENT exam: Present: normal exam, mucous membranes moist Neck exam: Present: normal inspection. Absent: tenderness, meningismus, lymphadenopathy Respiratory exam: Present: normal lung sounds bilaterally. Absent: respiratory distress, wheezes, rales, rhonchi, stridor Cardiovascular Exam: Present: regular rate, normal rhythm, normal heart sounds. Absent: systolic murmur, diastolic murmur, rubs, gallop, clicks GI/Abdominal exam: Present: soft, normal bowel sounds. Absent: distended, tenderness, guarding, rebound, rigid Extremities exam: Present: normal inspection, full ROM, normal capillary refill. Absent: tenderness, pedal edema, joint swelling, calf tenderness Back exam: Present: normal inspection Neurological exam: Present: alert, oriented X3, CN II-XII intact Psychiatric exam: Present: normal affect, normal mood Skin exam: Present: warm, dry, intact, normal color. Absent: rash Course Vital Signs 08/19/18 08/19/18 12:19 17:48 Temperature 98.2 F 98.2 F Pulse Rate 70 68 Respiratory 18 19 Rate Blood Pressure 150/77 127/69 O2 Sat by Pulse 99 96 Oximetry - Reevaluation(s) Reevaluation #1: 08/19/18 15:12 Medical records reviewed Reevaluation #2: 08/19/18 15:13 Pain is improved Medical Decision Making - Medical Decision Making 48 female the ER for evaluation presents today for abdominal pain. No history of incisional ventral hernia. Patient will follow-up with her surgeon as directed - Lab Data Result diagrams: 08/19/18 13:05 08/19/18 13:05 Lab Results 08/19/18 08/19/18 08/19/18 Range/Units 13:05 13:05 13:05 WBC 10.7 H (3.8-10.6) k/uL RBC 4.54 (3.80-5.40) m/uL Hgb 10.7 L (11.4-16.0) gm/dL Hct 34.9 (34.0-46.0) % MCV 76.8 L (80.0-100.0) fL MCH 23.5 L (25.0-35.0) pg MCHC 30.6 L (31.0-37.0) g/dL RDW 19.2 H (11.5-15.5) % Plt Count 490 H (150-450) k/uL Neutrophils % 65 % Lymphocytes % 21 % Monocytes % 6 % Eosinophils % 2 % Basophils % 1 % Neutrophils # 7.0 (1.3-7.7) k/uL Lymphocytes # 2.2 (1.0-4.8) k/uL Monocytes # 0.7 (0-1.0) k/uL Eosinophils # 0.3 (0-0.7) k/uL Basophils # 0.1 (0-0.2) k/uL Hypochromasia Marked Poikilocytosis Slight Anisocytosis Slight Microcytosis Slight Sodium 140 (137-145) mmol/L Potassium 4.8 (3.5-5.1) mmol/L Chloride 107 (98-107) mmol/L Carbon Dioxide 27 (22-30) mmol/L Anion Gap 6 mmol/L BUN 6 L (7-17) mg/dL Creatinine 0.50 L (0.52-1.04) mg/dL Est GFR (CKD-EPI)AfAm >90 (>60 ml/min/1.73 sqM) Est GFR (CKD-EPI)NonAf >90 (>60 ml/min/1.73 sqM) Glucose 85 (74-99) mg/dL Plasma Lactic Acid Tanner 0.9 (0.7-2.0) mmol/L Calcium 9.6 (8.4-10.2) mg/dL Total Bilirubin 0.4 (0.2-1.3) mg/dL AST 18 (14-36) U/L ALT 27 (9-52) U/L Alkaline Phosphatase 80 (38-126) U/L Troponin I (0.000-0.034) ng/mL Total Protein 6.8 (6.3-8.2) g/dL Albumin 4.1 (3.5-5.0) g/dL Amylase 56 (30-110) U/L Lipase 62 (23-300) U/L Urine Color Urine Appearance (Clear) Urine pH (5.0-8.0) Ur Specific [place] (1.001-1.035) Urine Protein (Negative) Urine Glucose (UA) (Negative) Urine Ketones (Negative) Urine Blood (Negative) Urine Nitrite (Negative) Urine Bilirubin (Negative) Urine Urobilinogen (<2.0) mg/dL Ur Leukocyte Esterase (Negative) 08/19/18 08/19/18 Range/Units 13:05 13:05 WBC (3.8-10.6) k/uL RBC (3.80-5.40) m/uL Hgb (11.4-16.0) gm/dL Hct (34.0-46.0) % MCV (80.0-100.0) fL MCH (25.0-35.0) pg MCHC (31.0-37.0) g/dL RDW (11.5-15.5) % Plt Count (150-450) k/uL Neutrophils % % Lymphocytes % % Monocytes % % Eosinophils % % Basophils % % Neutrophils # (1.3-7.7) k/uL Lymphocytes # (1.0-4.8) k/uL Monocytes # (0-1.0) k/uL Eosinophils # (0-0.7) k/uL Basophils # (0-0.2) k/uL Hypochromasia Poikilocytosis Anisocytosis Microcytosis Sodium (137-145) mmol/L Potassium (3.5-5.1) mmol/L Chloride (98-107) mmol/L Carbon Dioxide (22-30) mmol/L Anion Gap mmol/L BUN (7-17) mg/dL Creatinine (0.52-1.04) mg/dL Est GFR (CKD-EPI)AfAm (>60 ml/min/1.73 sqM) Est GFR (CKD-EPI)NonAf (>60 ml/min/1.73 sqM) Glucose (74-99) mg/dL Plasma Lactic Acid Tanner (0.7-2.0) mmol/L Calcium (8.4-10.2) mg/dL Total Bilirubin (0.2-1.3) mg/dL AST (14-36) U/L ALT (9-52) U/L Alkaline Phosphatase (38-126) U/L Troponin I <0.012 (0.000-0.034) ng/mL Total Protein (6.3-8.2) g/dL Albumin (3.5-5.0) g/dL Amylase (30-110) U/L Lipase (23-300) U/L Urine Color Light Yellow Urine Appearance Clear (Clear) Urine pH 7.5 (5.0-8.0) Ur Specific [place] 1.005 (1.001-1.035) Urine Protein Negative (Negative) Urine Glucose (UA) Negative (Negative) Urine Ketones Negative (Negative) Urine Blood Negative (Negative) Urine Nitrite Negative (Negative) Urine Bilirubin Negative (Negative) Urine Urobilinogen <2.0 (<2.0) mg/dL Ur Leukocyte Esterase Negative (Negative) - Radiology Data Radiology results: report reviewed (CT abdomen pelvis is negative for acute disease), image reviewed Disposition Clinical Impression: Abdominal pain Disposition: HOME SELF-CARE Instructions (If sedation given, give patient instructions): Abdominal Pain (ED) Is patient prescribed a controlled substance at d/c from ED?: No Referrals: Danish Nicholas DO [Primary Care Provider] - 1-2 days
[2018-08-19] MEDS ORDERED: PANTOPRAZOLE 40 MG/10 ML VIAL IVP STA (12:40)
[2018-08-19] MEDS ORDERED: MORPHINE SULFATE 4 MG/ML SYRINGE IV STA (12:40)
[2018-08-19] MEDS ORDERED: SODIUM CHLORIDE 0.9% 1,000 ML IV STA (12:40)
[2018-08-19] MEDS ORDERED: ONDANSETRON 4 MG/2 ML VIAL IVP STA ×2 (12:40→15:28)
[2018-08-19 13:15] LABS: Anisocytosis Slight; Basophils # (A) 0.1 k/uL (0-0.2); Basophils % (A) 1 %; Eosinophils # (A) 0.3 k/uL (0-0.7); Eosinophils % (A) 2 %; HCT 34.9 % (34.0-46.0); HGB 10.7 gm/dL (11.4-16.0); Hypochromasia Marked; Lymphocytes # (A) 2.2 k/uL (1.0-4.8); Lymphocytes % (A) 21 %; MCH 23.5 pg (25.0-35.0); MCHC 30.6 g/dL (31.0-37.0); MCV 76.8 fL (80.0-100.0); Mean Platelet Volume 8.3; Microcytosis Slight; Monocytes # (A) 0.7 k/uL (0-1.0); Monocytes % (A) 6 %; Neutrophils % (A) 65 %; Platelet Count 490 k/uL (150-450); Poikilocytosis Slight; RBC 4.54 m/uL (3.80-5.40); RDW 19.2 % (11.5-15.5); WBC 10.7 k/uL (3.8-10.6)
[2018-08-19 13:16] LABS: Appearance,Urine Clear (Clear); Bilirubin,Urine Negative (Negative); Blood,Urine Negative (Negative); Color,Urine Light Yellow; Glucose,Urine (UA) Negative (Negative); Ketones,Urine Negative (Negative); Leukocyte Esterase,Urine Negative (Negative); Nitrite,Urine Negative (Negative); PH, Urine 7.5 (5.0-8.0); Protein,Urine Negative (Negative); Specific Gravity,Urine 1.005 (1.001-1.035); Urobilinogen,Urine <2.0 mg/dL (<2.0)
[2018-08-19 13:25] LABS: ALT 27 U/L (9-52); AST 18 U/L (14-36); Albumin 4.1 g/dL (3.5-5.0); Alkaline Phosphatase 80 U/L (38-126); Amylase 56 U/L (30-110); Anion Gap 6 mmol/L; Blood Urea Nitrogen 6 mg/dL (7-17); Calcium 9.6 mg/dL (8.4-10.2); Carbon Dioxide 27 mmol/L (22-30); Chloride 107 mmol/L (98-107); Glucose 85 mg/dL (74-99); Lipase 62 U/L (23-300); Potassium 4.8 mmol/L (3.5-5.1); Sodium 140 mmol/L (137-145); Total Bilirubin 0.4 mg/dL (0.2-1.3); Total Protein 6.8 g/dL (6.3-8.2)
[2018-08-19] MEDS ORDERED: MORPHINE SULFATE 4 MG/ML SYRINGE IVP STA (15:27)
--- NOTE | 2018-08-19 16:24 | CT ---
EXAMINATION TYPE: CT abdomen pelvis w con DATE OF EXAM: 08/19/2018 HISTORY: Generalized abdominal pain. CT DLP: 1512.5mGycm Automated Exposure Control for Dose Reduction was Utilized. CONTRAST: CT scan of the abdomen and pelvis is performed with IV Contrast, patient injected with 100 mL of Isov ue 300. COMPARISON: 02/12/2018. FINDINGS: LUNG BASES: Minimal bibasilar subsegmental dependent atelectasis is seen. LIVER/GB: Hepatic parenchyma is diffusely hypoattenuated in comparison to that of the spleen, most co mmonly seen in hepatic steatosis. This finding limits evaluation for hepatic masses. Geographic areas of focal fatty sparing are suspected. No intrahepatic biliary ductal dilatation. PANCREAS: No significant abnormality is seen. SPLEEN: Surgically absent. ADRENALS: No significant abnormality is seen. KIDNEYS: Kidneys enhance and excrete symmetrically. No hydronephrosis. BOWEL: There is moderate fecal stasis. Appendix is retrocecal and within normal limits however there is an appendicolith appreciated. Moderate fecal stasis is incidentally noted. No dilated large or sma ll bowel. UTERUS/ADNEXA: Enlarged fibroid uterus is seen with the largest exophytic, pedunculated fibroid measu ring up to 6.2 x 5.6 cm. This demonstrates interval growth from 2018. Leiomyosarcoma is not excluded. Left adnexal complex lesions are seen with some fluid surrounding the left gonadal vein. Again findi ngs are similar to thousand 18. LYMPH NODES: No greater than 1cm abdominal or pelvic lymph nodes are appreciated. OSSEOUS STRUCTURES: Scattered nonspecific sclerotic foci are seen within the pelvis that could repres ent bone islands. Mild sclerosis of the sacroiliac joints is overall symmetric. OTHER: There is a wide neck supraumbilical ventral hernia with the defect measuring 6.5 cm. This cont ains portions of transverse colon and mesenteric fat. No proximal dilated bowel to suggest obstructio n. Ventral abdominal wall defect is multifocal with additional periumbilical defect measuring 3.1 cm containing only mesenteric fat. Nonspecific subcutaneous edema is seen dependently of the lower pelvi s and abdomen overlying the lumbar spinous processes. IMPRESSION: 1. Enlarged heterogenous fibroid uterus however there is continued enlargement of the pedunculated le jamee in comparison to 2018 and leiomyosarcoma cannot be excluded on CT. 2. Multifocal ventral abdominal hernias the most cranial containing a portion of transverse colon. No evidence of bowel obstruction. 3. On CT there appears to be a left adnexal cystic and solid mass however this was not demonstrated o n transvaginal ultrasound dated 06/12/2018 and pelvic MRI could further assess this finding. 4. Hepatic steatosis with areas of probable focal fatty sparing.
[2018-08-19 17:51] VITALS: BP 127/69; PULSE 68; RESP 19
== END 2018-08-19 17:51 | disposition home or self-care (01) ==
LOC: EC 12:10
DX: R10.84 Generalized abdominal pain (principal); R11.0 Nausea; I25.2 Old myocardial infarction; E07.9 Disorder of thyroid, unspecified; F32.9 Major depressive disorder, single episode, unspecified; F17.200 Nicotine dependence, unspecified, uncomplicated; Z79.890 Hormone replacement therapy; Z79.82 Long term (current) use of aspirin; Z79.899 Other long term (current) drug therapy; Z88.0 Allergy status to penicillin; Z88.1 Allergy status to other antibiotic agents; Z88.2 Allergy status to sulfonamides
CPT/HCPCS: 36415; 80053; 82150; 83605; 83690; 84484; 85025; 81003; 87086; 74177; 99285; 96374; 96375 ×2; 96376 ×2; 96361; J2270; J2405; C9113; Q9967

== ENCOUNTER 2018-12-03 13:07 | Emergency (ER) | payer OTHER ==
[2018-12-03 13:16] VITALS: RESP 16
[2018-12-03] MEDS ORDERED: SODIUM CHLORIDE 0.9% 1,000 ML IV STA (13:37)
[2018-12-03] MEDS ORDERED: PANTOPRAZOLE 40 MG/10 ML VIAL IVP STA (14:00)
[2018-12-03] MEDS ORDERED: LORazepam 2 MG/ML INJ IV STA (14:00)
[2018-12-03] MEDS ORDERED: ONDANSETRON 4 MG/2 ML VIAL IVP STA (14:00)
--- NOTE | 2018-12-03 14:47 | ED ---
Abdominal Pain HPI - General Stated Complaint: hernia/nausea Time Seen by Provider: 12/03/18 13:28 Source: patient, RN notes reviewed, old records reviewed Mode of arrival: ambulatory Limitations: no limitations - History of Present Illness Initial Comments: 48-year-old female presents today for evaluation of nausea for the past week complaining of upper abdominal pain related to she reports that she had a splenectomy emergently and this was performed by Dr. Lopez. Patient states that she has been treated this, but is concerned that she's had continued nausea. No vomiting. Patient has had decrease in stools and gas production the past few days. - Related Data Home Medications Medication Instructions Recorded Confirmed Escitalopram [Lexapro] 10 mg PO HS 08/25/17 12/03/18 ALPRAZolam [Xanax XR] 1 mg PO DAILY 09/09/17 12/03/18 Levothyroxine Sodium 100 mcg PO DAILY 02/12/18 12/03/18 Acetaminophen Tab [Tylenol Tab] 1,000 mg PO Q6HR PRN 08/19/18 12/03/18 Aspirin EC [Ecotrin] 325 mg PO HS 08/19/18 12/03/18 Ferrous Sulfate [Feosol] 325 mg PO HS 12/03/18 12/03/18 Previous Rx's Medication Instructions Recorded Metoclopramide [Reglan] 10 mg PO ACHS #20 tab 12/03/18 Allergies Allergy/AdvReac Type Severity Reaction Status Date / Time Penicillins Allergy Rash/Hives Verified 12/03/18 14:02 sulfamethoxazole AdvReac Hallucinati Verified 12/03/18 14:02 [From Bactrim] ons trimethoprim [From Bactrim] AdvReac Hallucinati Verified 12/03/18 14:02 ons Review of Systems ROS Statement: Those systems with pertinent positive or pertinent negative responses have been documented in the HPI. ROS Other: All systems not noted in ROS Statement are negative. Past Medical History Past Medical History: Myocardial Infarction ([place]), Thyroid Disorder Additional Past Medical History / Comment(s): ovarian cyst and mass on uterus (08/2017), spontaneous spleen rupture, pancreatitis, hernia History of Any Multi-Drug Resistant Organisms: None Reported Past Surgical History: No Surgical Hx Reported Additional Past Surgical History / Comment(s): spleenectomy Past Anesthesia/Blood Transfusion Reactions: No Reported Reaction Past Psychological History: Depression Smoking Status: Current every day smoker Past Alcohol Use History: Rare Past Drug Use History: None Reported - Past Family History Mother Family Medical History: Hypertension, Rheumatoid Arthritis (RA) Father Family Medical History: COPD, Myocardial Infarction ([place]) General Exam - General Exam Comments Initial Comments: is a 48-year-old female. Limitations: no limitations General appearance: alert, in no apparent distress Head exam: Present: atraumatic, normocephalic, normal inspection Eye exam: Present: normal appearance, PERRL, EOMI. Absent: scleral icterus, conjunctival injection, periorbital swelling ENT exam: Present: normal exam, mucous membranes moist Neck exam: Present: normal inspection. Absent: tenderness, meningismus, lymphad enopathy Respiratory exam: Present: normal lung sounds bilaterally. Absent: respiratory distress, wheezes, rales, rhonchi, stridor Cardiovascular Exam: Present: regular rate, normal rhythm, normal heart sounds. Absent: systolic murmur, diastolic murmur, rubs, gallop, clicks GI/Abdominal exam: Present: soft, tenderness (Is a large ventral hernia over the mid abdomen.) Course Vital Signs 12/03/18 12/03/18 13:14 16:45 Temperature 98.5 F 97.9 F Pulse Rate 76 80 Respiratory 16 16 Rate Blood Pressure 131/83 146/81 O2 Sat by Pulse 96 99 Oximetry Medical Decision Making - Medical Decision Making This Patient 48-year-old female presents weren't sure today with nausea, epigastric pain and concern for ventral hernias. Patient at this time reports having the pain with her hernia site since she had her splenectomy approximately over a year ago. At this time she states she has not followed up with a surgeon due to insurance problems. Blood work was reviewed and unremarkable. CT on pelvis is evidence of a large ventral hernia containing large bowel. On exam this is easily reducible. I discussed with Patient she does follow up with surgeon in regards to these concerns. For nausea and will start the Patient on Reglan instead of Zofran. Discussed following up with PCP and surgeon Also CT shows uterine fibroid, and she is aware of uterine fibroid. She follows up with [facility]. - Lab Data Result diagrams: 12/03/18 13:52 12/03/18 13:52 Lab Results 12/03/18 12/03/18 12/03/18 Range/Units 13:52 13:52 13:52 WBC 11.5 H (3.8-10.6) k/uL RBC 4.81 (3.80-5.40) m/uL Hgb 13.8 (11.4-16.0) gm/dL Hct 42.7 (34.0-46.0) % MCV 88.7 (80.0-100.0) fL MCH 28.6 (25.0-35.0) pg MCHC 32.3 (31.0-37.0) g/dL RDW 23.9 H (11.5-15.5) % Plt Count 281 (150-450) k/uL Neutrophils % 65 % Lymphocytes % 22 % Monocytes % 8 % Eosinophils % 3 % Basophils % 1 % Neutrophils # 7.4 (1.3-7.7) k/uL Lymphocytes # 2.5 (1.0-4.8) k/uL Monocytes # 0.9 (0-1.0) k/uL Eosinophils # 0.3 (0-0.7) k/uL Basophils # 0.1 (0-0.2) k/uL Manual Slide Review Performed Large Platelets Present Polychromasia Present Poikilocytosis (manual Present Anisocytosis Moderate Microcytosis Slight Target Cells Present Sodium 138 (137-145) mmol/L Potassium 4.8 (3.5-5.1) mmol/L Chloride 108 H (98-107) mmol/L Carbon Dioxide 24 (22-30) mmol/L Anion Gap 6 mmol/L BUN 12 (7-17) mg/dL Creatinine 0.57 (0.52-1.04) mg/dL Est GFR (CKD-EPI)AfAm >90 (>60 ml/min/1.73 sqM) Est GFR (CKD-EPI)NonAf >90 (>60 ml/min/1.73 sqM) Glucose 79 (74-99) mg/dL Calcium 9.2 (8.4-10.2) mg/dL Total Bilirubin 0.5 (0.2-1.3) mg/dL AST 28 (14-36) U/L ALT 19 (9-52) U/L Alkaline Phosphatase 59 (38-126) U/L Total Protein 6.6 (6.3-8.2) g/dL Albumin 3.8 (3.5-5.0) g/dL Amylase 50 (30-110) U/L Lipase 63 (23-300) U/L Urine Color Yellow Urine Appearance Cloudy H (Clear) Urine pH 6.5 (5.0-8.0) Ur Specific [place] 1.014 (1.001-1.035) Urine Protein Negative (Negative) Urine Glucose (UA) Negative (Negative) Urine Ketones Negative (Negative) Urine Blood Negative (Negative) Urine Nitrite Negative (Negative) Urine Bilirubin Negative (Negative) Urine Urobilinogen <2.0 (<2.0) mg/dL Ur Leukocyte Esterase Trace H (Negative) Urine WBC 2 (0-5) /hpf Ur Squamous Epith Cells 8 H (0-4) /hpf Urine Mucus Rare H (None) /hpf - Radiology Data Radiology results: report reviewed Ventral abdominal hernia containing large bowel may correspond patient's upper a bdominal pain. Ventral hernia periumbilical hernia or fat containing also contains a mesenteric vasculature. Again uterus is enlarged and heterogeneous. Multiple leiomyomas uterine sarcoma. Adnexal mass was not visualized on the prior ultrasound is obscured by bowel gas. MRI may be needed. Hepatic C ptosis. Disposition Clinical Impression: Ventral hernia, Nausea, Uterine fibroid Disposition: HOME SELF-CARE Condition: Good Instructions (If sedation given, give patient instructions): Ventral Hernia (ED) Additional Instructions: Patient has a follow-up with general surgeon. Return to the emergency department if any alarming signs or symptoms occur. Patient advised to take stool softeners and to fill surgeon within the next few days. Prescriptions: Metoclopramide [Reglan] 10 mg PO ACHS #20 tab Is patient prescribed a controlled substance at d/c from ED?: No Referrals: Danish Nicholas DO [Primary Care Provider] - 1-2 days Cecelia Lopez DO [Doctor of Osteopathic Medicine] - 1-2 days Time of Disposition: 16:10
[2018-12-03 14:52] LABS: Anisocytosis Moderate; Basophils # (A) 0.1 k/uL (0-0.2); Basophils % (A) 1 %; Eosinophils # (A) 0.3 k/uL (0-0.7); Eosinophils % (A) 3 %; HCT 42.7 % (34.0-46.0); HGB 13.8 gm/dL (11.4-16.0); Lymphocytes # (A) 2.5 k/uL (1.0-4.8); Lymphocytes % (A) 22 %; MCH 28.6 pg (25.0-35.0); MCHC 32.3 g/dL (31.0-37.0); MCV 88.7 fL (80.0-100.0); Mean Platelet Volume 10.7; Microcytosis Slight; Monocytes # (A) 0.9 k/uL (0-1.0); Monocytes % (A) 8 %; Neutrophils # (A) 7.4 k/uL (1.3-7.7); Neutrophils % (A) 65 %; Platelet Count 281 k/uL (150-450); RBC 4.81 m/uL (3.80-5.40); RDW 23.9 % (11.5-15.5); WBC 11.5 k/uL (3.8-10.6)
[2018-12-03 14:55] LABS: ALT 19 U/L (9-52); AST 28 U/L (14-36); African American GFR (CKD) >90 (>60 ml/min/1.73 sqM); Albumin 3.8 g/dL (3.5-5.0); Alkaline Phosphatase 59 U/L (38-126); Amylase 50 U/L (30-110); Anion Gap 6 mmol/L; Blood Urea Nitrogen 12 mg/dL (7-17); Calcium 9.2 mg/dL (8.4-10.2); Carbon Dioxide 24 mmol/L (22-30); Chloride 108 mmol/L (98-107); Glucose 79 mg/dL (74-99); Potassium 4.8 mmol/L (3.5-5.1); Sodium 138 mmol/L (137-145); Total Bilirubin 0.5 mg/dL (0.2-1.3); Total Protein 6.6 g/dL (6.3-8.2)
[2018-12-03 15:04] LABS: Appearance,Urine Cloudy (Clear); Bilirubin,Urine Negative (Negative); Blood,Urine Negative (Negative); Color,Urine Yellow; Glucose,Urine (UA) Negative (Negative); Ketones,Urine Negative (Negative); Leukocyte Esterase,Urine Trace (Negative); Mucus,Urine Rare /hpf; Nitrite,Urine Negative (Negative); PH, Urine 6.5 (5.0-8.0); Protein,Urine Negative (Negative); Specific Gravity,Urine 1.014 (1.001-1.035); Squamous Epithelial Cell,Urine 8 /hpf (0-4); Urobilinogen,Urine <2.0 mg/dL (<2.0); WBC,Urine 2 /hpf (0-5)
--- NOTE | 2018-12-03 15:44 | CT ---
EXAMINATION TYPE: CT abdomen pelvis w con DATE OF EXAM: 12/03/2018 HISTORY: Upper Abdominal pain and nausea CT DLP: 1513.1mGycm Automated Exposure Control for Dose Reduction was Utilized. CONTRAST: CT scan of the abdomen and pelvis is performed with IV Contrast, patient injected with 100 mL of Isov ue 300. COMPARISON: 08/19/2018 FINDINGS: LUNG BASES: There is a subsegmental atelectasis. LIVER/GB: Hepatic parenchyma is diffusely hypoattenuated in comparison to that of the spleen, most co mmonly seen in hepatic steatosis. This finding limits evaluation for hepatic masses. No gross evidenc e of hepatic mass is seen. No intrahepatic biliary ductal dilatation. No cholelithiasis. PANCREAS: No significant abnormality is seen. SPLEEN: Surgically absent. ADRENALS: No significant abnormality is seen. KIDNEYS: Kidneys enhance and excrete symmetrically without hydronephrosis. Slight lobulated contour o f the right kidney. BOWEL: No dilated large or small bowel. Appendix is air-filled and within normal limits. Moderate bu rden colonic fecal stasis. UTERUS/ADNEXA: Again the uterus is grossly enlarged and heterogenous with left adnexal mass not seen on prior ultrasound as the left ovary was obscured by bowel gas. This mass appears cystic with solid components. The uterus is grossly enlarged. LYMPH NODES: No greater than 1cm abdominal or pelvic lymph nodes are appreciated. OSSEOUS STRUCTURES: No acute osseous process. OTHER: Ventral abdominal hernia contains loops of large bowel and has a wide neck measuring 7.2 cm. T his is supraumbilical with additional left paracentral and central supraumbilical hernias that contai n fat and mesenteric vasculature below the larger hernia. Fat filled periumbilical hernia is also see n. IMPRESSION: 1. Ventral abdominal hernia contains loops of large bowel and may correspond to the patient's upper a bdominal pain. Correlate for reducibility clinically. Additional ventral hernia and periumbilical her chant[place] are fat-containing and also containing mesenteric vasculature. 2. Again the uterus is enlarged and heterogenous with findings that could relate to multiple leiomyom as or uterine sarcoma. Left adnexal mass was not visualized on the prior ultrasound as the left ovary was obscured by bowel gas. MRI of the pelvis is recommended for further characterization. 3. Hepatic steatosis.
[2018-12-03 15:52] LABS: Large Platelets Present
[2018-12-03 15:56] LABS: Poikilocytosis (M) Present; Polychromasia Present
[2018-12-03 15:57] LABS: Target Cells Present
[2018-12-03] MEDS ORDERED: KETOROLAC 30 MG/ML 1 ML VIAL IVP STA (16:11)
[2018-12-03] MEDS ORDERED: METOCLOPRAMIDE 5 MG/ML 2 ML VIAL IVP STA (16:23)
[2018-12-03 16:47] VITALS: BP 146/81; PULSE 80; TEMP 97.9
== END 2018-12-03 16:42 | disposition home or self-care (01) ==
LOC: EC 13:07
DX: D25.9 Leiomyoma of uterus, unspecified (principal); K43.9 Ventral hernia without obstruction or gangrene; I25.2 Old myocardial infarction; E07.9 Disorder of thyroid, unspecified; F32.9 Major depressive disorder, single episode, unspecified; F17.200 Nicotine dependence, unspecified, uncomplicated; Z88.0 Allergy status to penicillin; Z88.2 Allergy status to sulfonamides; Z79.82 Long term (current) use of aspirin; Z79.890 Hormone replacement therapy; Z79.899 Other long term (current) drug therapy; Z90.81 Acquired absence of spleen; Z53.20 Procedure and treatment not carried out because of patient's decision for unspecified reasons
CPT/HCPCS: 36415; 80053; 82150; 83690; 85025; 81001; 74177; 99284; 96374; 96375 ×3; J2765; J2405; J1885; C9113; Q9967

== ENCOUNTER 2018-12-15 21:16 | Emergency (ER) | payer OTHER ==
[2018-12-15] MEDS ORDERED: METOCLOPRAMIDE 5 MG/ML 2 ML VIAL IVP STA (22:17)
[2018-12-15] MEDS ORDERED: diphenhydrAMINE 50 MG/ML 1 ML VIAL IVP STA (22:17)
[2018-12-15] MEDS ORDERED: HYDROmorphone 1 MG/ML 1 ML SYRINGE IVP STA (22:17)
[2018-12-15] MEDS ORDERED: SODIUM CHLORIDE 0.9% 1,000 ML IV STA (22:17)
[2018-12-15 22:23] VITALS: BP 145/78; PULSE 78; RESP 18; TEMP 97.9
[2018-12-15 22:31] LABS: Anisocytosis Moderate; Basophils # (A) 0.1 k/uL (0-0.2); Basophils % (A) 1 %; Eosinophils # (A) 0.4 k/uL (0-0.7); Eosinophils % (A) 3 %; HGB 13.6 gm/dL (11.4-16.0); Lymphocytes # (A) 2.9 k/uL (1.0-4.8); Lymphocytes % (A) 22 %; MCH 28.6 pg (25.0-35.0); MCHC 31.7 g/dL (31.0-37.0); MCV 90.2 fL (80.0-100.0); Mean Platelet Volume 9.8; Microcytosis Slight; Monocytes # (A) 0.9 k/uL (0-1.0); Monocytes % (A) 7 %; Neutrophils # (A) 8.9 k/uL (1.3-7.7); Neutrophils % (A) 66 %; Platelet Count 293 k/uL (150-450); RBC 4.76 m/uL (3.80-5.40); RDW 22.5 % (11.5-15.5); WBC 13.4 k/uL (3.8-10.6)
[2018-12-15 22:44] LABS: African American GFR (CKD) >90 (>60 ml/min/1.73 sqM); Albumin 3.9 g/dL (3.5-5.0); Amylase 40 U/L (30-110); Anion Gap 7 mmol/L; Blood Urea Nitrogen 13 mg/dL (7-17); Calcium 9.5 mg/dL (8.4-10.2); Carbon Dioxide 28 mmol/L (22-30); Chloride 105 mmol/L (98-107); Glucose 111 mg/dL (74-99); Sodium 140 mmol/L (137-145); Total Bilirubin 0.4 mg/dL (0.2-1.3); Total Protein 6.8 g/dL (6.3-8.2)
[2018-12-15 22:56] LABS: Potassium 4.3 mmol/L (3.5-5.1)
[2018-12-15 22:57] LABS: ALT 19 U/L (9-52); AST 27 U/L (14-36); Alkaline Phosphatase 60 U/L (38-126)
--- NOTE | 2018-12-15 22:59 | XR ---
EXAM: XR Abdomen, 1 View CLINICAL HISTORY: ITS.REASON XR Reason: abdominal pain TECHNIQUE: Frontal supine view of the abdomen/pelvis. COMPARISON: 07/29/18 FINDINGS: Gastrointestinal tract: Unremarkable. No dilation. Bones/joints: No acute fracture. No dislocation. IMPRESSION: No acute findings.
--- NOTE | 2018-12-15 23:01 | ED ---
Nausea/Vomiting/Diarrhea HPI - General Chief complaint: Nausea/Vomiting/Diarrhea Stated complaint: Abd pain Time Seen by Provider: 12/15/18 21:24 Source: patient Mode of arrival: ambulatory Limitations: no limitations - History of Present Illness Initial comments: 48-year-old female patient presents to the emergency department today for evaluation of nausea and diarrhea. Patient states that she has a known hernia into the mid upper abdomen at the site of a previous surgery. Patient states she was evaluated here last Sunday, diagnosed with a large ventral hernia and discharged home. Patient states her symptoms have not improved and she just feels worse. Patient states she has been extremely nauseated. Denies any vomiting. States she has been able to keep down food and fluids. She does have nausea medication at home, but states it does not help. States that she has diarrhea whenever she eats. Denies any hematochezia or melena. Denies any fever or chills. She complains of upper abdominal pain and tenderness. States she is also having mid back pain worsening over the last week. Patient denies any recent rash, shortness breath, chest pain, numbness, tingling, dizziness, weakness, hematuria, dysuria, urinary urgency, urinary frequency, headache, visual changes, or any other complaints. - Related Data Home Medications Medication Instructions Recorded Confirmed Escitalopram [Lexapro] 10 mg PO HS 08/25/17 12/03/18 ALPRAZolam [Xanax XR] 1 mg PO DAILY 09/09/17 12/03/18 Levothyroxine Sodium 100 mcg PO DAILY 02/12/18 12/03/18 Acetaminophen Tab [Tylenol Tab] 1,000 mg PO Q6HR PRN 08/19/18 12/03/18 Aspirin EC [Ecotrin] 325 mg PO HS 08/19/18 12/03/18 Ferrous Sulfate [Feosol] 325 mg PO HS 12/03/18 12/03/18 Previous Rx's Medication Instructions Recorded Metoclopramide [Reglan] 10 mg PO ACHS #20 tab 12/03/18 Promethazine [Phenergan] 25 mg PO Q6HR #40 tablet 12/16/18 Scopolamine 1.5MG/72Hr Patch 1 patch TRANSDERM Q72H #7 patch 12/16/18 [TransDerm Scop] Allergies Allergy/AdvReac Type Severity Reaction Status Date / Time Penicillins Allergy Rash/Hives Verified 12/15/18 21:22 sulfamethoxazole AdvReac Hallucinati Verified 12/15/18 21:22 [From Bactrim] ons trimethoprim [From Bactrim] AdvReac Hallucinati Verified 12/15/18 21:22 ons Review of Systems ROS Statement: Those systems with pertinent positive or pertinent negative responses have been documented in the HPI. ROS Other: All systems not noted in ROS Statement are negative. Past Medical History Past Medical History: Myocardial Infarction ([place]), Thyroid Disorder Additional Past Medical History / Comment(s): ovarian cyst and mass on uterus (08/2017), spontaneous spleen rupture, pancreatitis, hernia History of Any Multi-Drug Resistant Organisms: None Reported Past Surgical History: No Surgical Hx Reported Additional Past Surgical History / Comment(s): spleenectomy Past Anesthesia/Blood Transfusion Reactions: No Reported Reaction Past Psychological History: Depression Smoking Status: Current every day smoker Past Alcohol Use History: Rare Past Drug Use History: None Reported - Past Family History Mother Family Medical History: Hypertension, Rheumatoid Arthritis ([place]) Father Family Medical History: COPD, Myocardial Infarction ([place]) General Exam Limitations: no limitations General appearance: alert, in no apparent distress, other (This is a well- developed, well-nourished adult female patient in no acute distress. Vital signs upon presentation are temperature 97.4F, pulse 90, respiration 16, blood pressure 149/82, pulse ox 97% on room air.) Eye exam: Present: normal appearance, PERRL, EOMI. Absent: scleral icterus, conjunctival injection, periorbital swelling ENT exam: Present: normal exam, normal oropharynx, mucous membranes moist Respiratory exam: Present: normal lung sounds bilaterally. Absent: respiratory distress, wheezes, rales, rhonchi, stridor Cardiovascular Exam: Present: regular rate, normal rhythm, normal heart sounds. Absent: systolic murmur, diastolic murmur, rubs, gallop, clicks GI/Abdominal exam: Present: soft, tenderness (Midepigastric), normal bowel sounds, hernia (Mid upper abdomen). Absent: distended, guarding, rebound, rigid Back exam: Present: normal inspection. Absent: vertebral tenderness Neurological exam: Present: alert, oriented X3, CN II-XII intact Psychiatric exam: Present: normal affect, normal mood Skin exam: Present: warm, dry, intact, normal color. Absent: rash Course Vital Signs 12/15/18 12/15/18 21:19 22:22 Temperature 97.4 F L 97.9 F Pulse Rate 90 78 Respiratory 16 18 Rate Blood Pressure 149/82 145/78 O2 Sat by Pulse 97 99 Oximetry Medical Decision Making - Medical Decision Making 48-year-old female patient presents to the emergency department today for evaluation of abdominal pain, nausea, diarrhea. Patient has had symptoms for the last several months worsening over the last week. The patient has a known large large bowel containing ventral hernia and abnormal findings in her uterus. Patient has been taking Reglan and Zofran at home without relief. Labs reviewed and showed mild leukocytosis. KUB x-ray was unremarkable. Did review computed tomography scan from one week ago which showed large bowel hernia and abnorm alities within the uterus consistent with possible leiomyomas or sarcoma. I did discuss findings and results with the patient. Patient will be discharged to follow-up outpatient with her specialists including her general surgeon and her cotton baler. The patient states she does not currently have insurance. She'll be provided with prescription for Phenergan and scopalamine for nausea managemen t. She's instructed to follow up with her primary care physician for recheck in 1-2 days. Return to the emergency department immediately for any new, worsening, or concerning symptoms. - Lab Data Result diagrams: 12/15/18 22:05 12/15/18 22:05 Lab Results 12/15/18 12/15/18 12/15/18 Range/Units 22:05 22:05 22:25 WBC 13.4 H (3.8-10.6) k/uL RBC 4.76 (3.80-5.40) m/uL Hgb 13.6 (11.4-16.0) gm/dL Hct 43.0 (34.0-46.0) % MCV 90.2 (80.0-100.0) fL MCH 28.6 (25.0-35.0) pg MCHC 31.7 (31.0-37.0) g/dL RDW 22.5 H (11.5-15.5) % Plt Count 293 (150-450) k/uL Neutrophils % 66 % Lymphocytes % 22 % Monocytes % 7 % Eosinophils % 3 % Basophils % 1 % Neutrophils # 8.9 H (1.3-7.7) k/uL Lymphocytes # 2.9 (1.0-4.8) k/uL Monocytes # 0.9 (0-1.0) k/uL Eosinophils # 0.4 (0-0.7) k/uL Basophils # 0.1 (0-0.2) k/uL Anisocytosis Moderate Microcytosis Slight Sodium 140 (137-145) mmol/L Potassium 4.3 (3.5-5.1) mmol/L Chloride 105 (98-107) mmol/L Carbon Dioxide 28 (22-30) mmol/L Anion Gap 7 mmol/L BUN 13 (7-17) mg/dL Creatinine 0.57 (0.52-1.04) mg/dL Est GFR (CKD-EPI)AfAm >90 (>60 ml/min/1.73 sqM) Est GFR (CKD-EPI)NonAf >90 (>60 ml/min/1.73 sqM) Glucose 111 H (74-99) mg/dL Plasma Lactic Acid Tanner 1.0 (0.7-2.0) mmol/L Calcium 9.5 (8.4-10.2) mg/dL Total Bilirubin 0.4 (0.2-1.3) mg/dL AST 27 (14-36) U/L ALT 19 (9-52) U/L Alkaline Phosphatase 60 (38-126) U/L Total Protein 6.8 (6.3-8.2) g/dL Albumin 3.9 (3.5-5.0) g/dL Amylase 40 (30-110) U/L Lipase 68 (23-300) U/L Urine Color Urine Appearance (Clear) Urine pH (5.0-8.0) Ur Specific [employer] (1.001-1.035) Urine Protein (Negative) Urine Glucose (UA) (Negative) Urine Ketones (Negative) Urine Blood (Negative) Urine Nitrite (Negative) Urine Bilirubin (Negative) Urine Urobilinogen (<2.0) mg/dL Ur Leukocyte Esterase (Negative) Urine RBC (0-5) /hpf Urine WBC (0-5) /hpf Ur Squamous Epith Cells (0-4) /hpf Urine Bacteria (None) /hpf Urine Mucus (None) /hpf 12/15/18 Range/Units 23:20 WBC (3.8-10.6) k/uL RBC (3.80-5.40) m/uL Hgb (11.4-16.0) gm/dL Hct (34.0-46.0) % MCV (80.0-100.0) fL MCH (25.0-35.0) pg MCHC (31.0-37.0) g/dL RDW (11.5-15.5) % Plt Count (150-450) k/uL Neutrophils % % Lymphocytes % % Monocytes % % Eosinophils % % Basophils % % Neutrophils # (1.3-7.7) k/uL Lymphocytes # (1.0-4.8) k/uL Monocytes # (0-1.0) k/uL Eosinophils # (0-0.7) k/uL Basophils # (0-0.2) k/uL Anisocytosis Microcytosis Sodium (137-145) mmol/L Potassium (3.5-5.1) mmol/L Chloride (98-107) mmol/L Carbon Dioxide (22-30) mmol/L Anion Gap mmol/L BUN (7-17) mg/dL Creatinine (0.52-1.04) mg/dL Est GFR (CKD-EPI)AfAm (>60 ml/min/1.73 sqM) Est GFR (CKD-EPI)NonAf (>60 ml/min/1.73 sqM) Glucose (74-99) mg/dL Plasma Lactic Acid Tanner (0.7-2.0) mmol/L Calcium (8.4-10.2) mg/dL Total Bilirubin (0.2-1.3) mg/dL AST (14-36) U/L ALT (9-52) U/L Alkaline Phosphatase (38-126) U/L Total Protein (6.3-8.2) g/dL Albumin (3.5-5.0) g/dL Amylase (30-110) U/L Lipase (23-300) U/L Urine Color Yellow Urine Appearance Clear (Clear) Urine pH 6.0 (5.0-8.0) Ur Specific [employer] 1.028 (1.001-1.035) Urine Protein Trace H (Negative) Urine Glucose (UA) Negative (Negative) Urine Ketones Negative (Negative) Urine Blood Moderate H (Negative) Urine Nitrite Negative (Negative) Urine Bilirubin Negative (Negative) Urine Urobilinogen 2.0 (<2.0) mg/dL Ur Leukocyte Esterase Negative (Negative) Urine RBC 1 (0-5) /hpf Urine WBC 5 (0-5) /hpf Ur Squamous Epith Cells 6 H (0-4) /hpf Urine Bacteria Rare H (None) /hpf Urine Mucus Few H (None) /hpf - Radiology Data Radiology results: report reviewed, image reviewed One view x-ray of the abdomen is obtained. Report reviewed in its entirety. Im pression by Dr. Salas shows no acute findings. Disposition Clinical Impression: Abdominal pain, Ventral hernia, Nausea, Diarrhea Disposition: HOME SELF-CARE Condition: Good Instructions (If sedation given, give patient instructions): Acute Nausea and Vomiting (ED), Acute Diarrhea (ED), Ventral Hernia (ED) Additional Instructions: Take medications as directed. Follow-up with your primary care physician for recheck in 1-2 days. Follow-up with gynecology and your surgeon for recheck as soon as possible. Return to the emergency department immediately for any new, worsening, or concerning symptoms. Prescriptions: Promethazine [Phenergan] 25 mg PO Q6HR #40 tablet Scopolamine 1.5MG/72Hr Patch [TransDerm Scop] 1 patch TRANSDERM Q72H #7 patch Is patient prescribed a controlled substance at d/c from ED?: No Referrals: Danish Nicholas DO [Primary Care Provider] - 1-2 days Cecelia Lopez DO [Doctor of Osteopathic Medicine] - 1-2 days Nickolas Lindsay MD [STAFF PHYSICIAN] - 1-2 days Time of Disposition: 00:23
[2018-12-15 23:50] LABS: Appearance,Urine Clear (Clear); Bacteria,Urine Rare /hpf; Bilirubin,Urine Negative (Negative); Blood,Urine Moderate (Negative); Color,Urine Yellow; Glucose,Urine (UA) Negative (Negative); Ketones,Urine Negative (Negative); Leukocyte Esterase,Urine Negative (Negative); Mucus,Urine Few /hpf; Nitrite,Urine Negative (Negative); Protein,Urine Trace (Negative); RBC,Urine 1 /hpf (0-5); Specific Gravity,Urine 1.028 (1.001-1.035); Squamous Epithelial Cell,Urine 6 /hpf (0-4); WBC,Urine 5 /hpf (0-5)
== END 2018-12-16 01:22 | disposition home or self-care (01) ==
LOC: EC 21:16
DX: K43.9 Ventral hernia without obstruction or gangrene (principal); R19.7 Diarrhea, unspecified; R93.89 Abnormal findings on diagnostic imaging of other specified body structures; D72.829 Elevated white blood cell count, unspecified; F32.9 Major depressive disorder, single episode, unspecified; E07.9 Disorder of thyroid, unspecified; F17.200 Nicotine dependence, unspecified, uncomplicated; Z79.82 Long term (current) use of aspirin; Z79.890 Hormone replacement therapy; Z79.899 Other long term (current) drug therapy; Z88.0 Allergy status to penicillin; Z88.2 Allergy status to sulfonamides; Z87.42 Personal history of other diseases of the female genital tract; Z87.19 Personal history of other diseases of the digestive system; Z90.81 Acquired absence of spleen
CPT/HCPCS: 36415; 80053; 82150; 83605; 83690; 85025; 81001; 74018; 99284; 96374; 96375 ×2; 96361; J1200; J2765; J1170

== ENCOUNTER 2019-02-01 12:46 | Emergency (ER) | payer OTHER ==
[2019-02-01 12:53] VITALS: RESP 18
--- NOTE | 2019-02-01 13:08 | ED ---
Abdominal Pain HPI - General Chief Complaint: Abdominal Pain Stated Complaint: Nausea/abd pain Time Seen by Provider: 02/01/19 12:54 Source: patient Mode of arrival: ambulatory Limitations: no limitations - History of Present Illness Initial Comments: Patient is a 48-year-old female with history of a hernia is presenting to the emergency department with a chief complaint of abdominal pain. Patient reports her symptoms started 4 days ago and had gradual increase in severity. Patient reports she was diagnosed with a ventral hernia after CT imaging at the previous surgical site in the abdomen. Patient reports the pain is currently an 8 and is located in the epigastric region. Patient does report nausea and is gagging but has never actually vomited. Patient reports the pain exacerbated and steady position alleviated when laying. Patient denies any urinary or bowel symptoms. Patient denies any fevers or sweats or chills. Patient reports taking [id number] analgesics minimal improvement. Patient denies chest pain back pain or shortness of breath. - Related Data Home Medications Medication Instructions Recorded Confirmed Escitalopram [Lexapro] 10 mg PO HS 08/25/17 12/03/18 ALPRAZolam [Xanax XR] 1 mg PO DAILY 09/09/17 12/03/18 Levothyroxine Sodium 100 mcg PO DAILY 02/12/18 12/03/18 Acetaminophen Tab [Tylenol Tab] 1,000 mg PO Q6HR PRN 08/19/18 12/03/18 Aspirin EC [Ecotrin] 325 mg PO HS 08/19/18 12/03/18 Ferrous Sulfate [Feosol] 325 mg PO HS 12/03/18 12/03/18 Previous Rx's Medication Instructions Recorded Metoclopramide [Reglan] 10 mg PO ACHS #20 tab 12/03/18 Promethazine [Phenergan] 25 mg PO Q6HR #40 tablet 12/16/18 Scopolamine 1.5MG/72Hr Patch 1 patch TRANSDERM Q72H #7 patch 12/16/18 [TransDerm Scop] Metoclopramide [Reglan] 10 mg PO TID PRN #15 tab 02/01/19 Allergies Allergy/AdvReac Type Severity Reaction Status Date / Time Penicillins Allergy Rash/Hives Verified 02/01/19 12:48 sulfamethoxazole AdvReac Hallucinati Verified 02/01/19 12:48 [From Bactrim] ons trimethoprim [From Bactrim] AdvReac Hallucinati Verified 02/01/19 12:48 ons Review of Systems ROS Statement: Those systems with pertinent positive or pertinent negative responses have been documented in the HPI. ROS Other: All systems not noted in ROS Statement are negative. Past Medical History Past Medical History: Myocardial Infarction ([place]), Thyroid Disorder Additional Past Medical History / Comment(s): ovarian cyst and mass on uterus (08/2017), spontaneous spleen rupture, pancreatitis, hernia History of Any Multi-Drug Resistant Organisms: None Reported Past Surgical History: No Surgical Hx Reported Additional Past Surgical History / Comment(s): spleenectomy Past Anesthesia/Blood Transfusion Reactions: No Reported Reaction Past Psychological History: Depression Smoking Status: Current every day smoker Past Alcohol Use History: Rare Past Drug Use History: None Reported - Past Family History Mother Family Medical History: Hypertension, Rheumatoid Arthritis ([place]) Father Family Medical History: COPD, Myocardial Infarction ([place]) General Exam Limitations: no limitations General appearance: alert, in no apparent distress, obese Head exam: Present: atraumatic, normocephalic, normal inspection Eye exam: Present: normal appearance, PERRL, EOMI Pupils: Present: normal accommodation ENT exam: Present: normal exam, mucous membranes moist, normal external ear exam Neck exam: Present: normal inspection, full ROM Respiratory exam: Present: normal lung sounds bilaterally Cardiovascular Exam: Present: regular rate, normal rhythm, normal heart sounds GI/Abdominal exam: Present: soft, tenderness (Epigastric tenderness), normal bowel sounds, hernia (Reducible ventral hernia an midline incision site), other (Multiple scars from previous surgeries.). Absent: guarding, rebound Extremities exam: Present: normal inspection, full ROM Back exam: Present: normal inspection, full ROM Neurological exam: Present: alert, oriented X3 Psychiatric exam: Present: normal affect, normal mood Skin exam: Present: warm, intact, normal color Course Vital Signs 02/01/19 12:49 Temperature 98.1 F Pulse Rate 76 Respiratory 18 Rate Blood Pressure 161/85 O2 Sat by Pulse 97 Oximetry Medical Decision Making - Medical Decision Making Patient is a 48-year-old female with history of ventral hernias presenting to emergency Department with a chief complaint of abdominal pain and nausea. Patient reports her symptoms began about 4 days ago and gradually increasing severity. Patient reports nausea with continues gazing but not actually vomiting. Patient is able to tolerate by mouth liquids and solids. Patient reports the pain is in the epigastric region where the hernias. Patient reports the hernia is protruding more extended position and reduces and supine position. Patient reports no fevers or chills. Physical examination the hernia appears to reduce itself when the patient got some standing to supine position. CT of the abdomen and pelvis shows no changes since the previous CT. Labs are unremarkable. Patient given Zofran, Reglan, fluids and analgesia. Patient will be discharged with a Tylenol 3 starter pack. Patient will be discharged with Reglan as well. Patient advised to follow-up with a surgeon. Strict return parameters were thoroughly discussed with patient was understanding and agreeable. Case discussed with physician. - Lab Data Result diagrams: 02/01/19 13:26 02/01/19 13:26 Lab Results 02/01/19 02/01/19 02/01/19 Range/Units 13:26 13:26 13:26 WBC 10.5 (3.8-10.6) k/uL RBC 4.57 (3.80-5.40) m/uL Hgb 14.5 (11.4-16.0) gm/dL Hct 44.0 (34.0-46.0) % MCV 96.3 D (80.0-100.0) fL MCH 31.8 (25.0-35.0) pg MCHC 33.0 (31.0-37.0) g/dL RDW 16.4 H (11.5-15.5) % Plt Count 281 (150-450) k/uL Neutrophils % 66 % Lymphocytes % 20 % Monocytes % 7 % Eosinophils % 3 % Basophils % 2 % Neutrophils # 6.9 (1.3-7.7) k/uL Lymphocytes # 2.1 (1.0-4.8) k/uL Monocytes # 0.8 (0-1.0) k/uL Eosinophils # 0.3 (0-0.7) k/uL Basophils # 0.2 (0-0.2) k/uL Anisocytosis Slight Sodium 138 (137-145) mmol/L Potassium 4.7 (3.5-5.1) mmol/L Chloride 106 (98-107) mmol/L Carbon Dioxide 26 (22-30) mmol/L Anion Gap 6 mmol/L BUN 12 (7-17) mg/dL Creatinine 0.68 (0.52-1.04) mg/dL Est GFR (CKD-EPI)AfAm >90 (>60 ml/min/1.73 sqM) Est GFR (CKD-EPI)NonAf >90 (>60 ml/min/1.73 sqM) Glucose 91 (74-99) mg/dL Plasma Lactic Acid Tanner (0.7-2.0) mmol/L Calcium 9.6 (8.4-10.2) mg/dL Total Bilirubin 0.5 (0.2-1.3) mg/dL AST 20 (14-36) U/L ALT 22 (9-52) U/L Alkaline Phosphatase 71 (38-126) U/L Total Protein 7.1 (6.3-8.2) g/dL Albumin 4.1 (3.5-5.0) g/dL Amylase 46 (30-110) U/L Lipase 80 (23-300) U/L Urine Color Light Yellow Urine Appearance Clear (Clear) Urine pH 6.0 (5.0-8.0) Ur Specific [place] 1.005 (1.001-1.035) Urine Protein Negative (Negative) Urine Glucose (UA) Negative (Negative) Urine Ketones Negative (Negative) Urine Blood Negative (Negative) Urine Nitrite Negative (Negative) Urine Bilirubin Negative (Negative) Urine Urobilinogen <2.0 (<2.0) mg/dL Ur Leukocyte Esterase Negative (Negative) 02/01/19 Range/Units 13:26 WBC (3.8-10.6) k/uL RBC (3.80-5.40) m/uL Hgb (11.4-16.0) gm/dL Hct (34.0-46.0) % MCV (80.0-100.0) fL MCH (25.0-35.0) pg MCHC (31.0-37.0) g/dL RDW (11.5-15.5) % Plt Count (150-450) k/uL Neutrophils % % Lymphocytes % % Monocytes % % Eosinophils % % Basophils % % Neutrophils # (1.3-7.7) k/uL Lymphocytes # (1.0-4.8) k/uL Monocytes # (0-1.0) k/uL Eosinophils # (0-0.7) k/uL Basophils # (0-0.2) k/uL Anisocytosis Sodium (137-145) mmol/L Potassium (3.5-5.1) mmol/L Chloride (98-107) mmol/L Carbon Dioxide (22-30) mmol/L Anion Gap mmol/L BUN (7-17) mg/dL Creatinine (0.52-1.04) mg/dL Est GFR (CKD-EPI)AfAm (>60 ml/min/1.73 sqM) Est GFR (CKD-EPI)NonAf (>60 ml/min/1.73 sqM) Glucose (74-99) mg/dL Plasma Lactic Acid Tanner 2.0 (0.7-2.0) mmol/L Calcium (8.4-10.2) mg/dL Total Bilirubin (0.2-1.3) mg/dL AST (14-36) U/L ALT (9-52) U/L Alkaline Phosphatase (38-126) U/L Total Protein (6.3-8.2) g/dL Albumin (3.5-5.0) g/dL Amylase (30-110) U/L Lipase (23-300) U/L Urine Color Urine Appearance (Clear) Urine pH (5.0-8.0) Ur Specific [place] (1.001-1.035) Urine Protein (Negative) Urine Glucose (UA) (Negative) Urine Ketones (Negative) Urine Blood (Negative) Urine Nitrite (Negative) Urine Bilirubin (Negative) Urine Urobilinogen (<2.0) mg/dL Ur Leukocyte Esterase (Negative) Disposition Clinical Impression: Ventral hernia, Nausea Disposition: HOME SELF-CARE Condition: Stable Instructions (If sedation given, give patient instructions): Ventral Hernia (ED) Additional Instructions: Please follow up with a general surgeon. Please return to emergency department if symptoms worsen. Please see prescribe medication as directed. Alternate between Tylenol and ibuprofen for pain control. Is patient prescribed a controlled substance at d/c from ED?: No Referrals: Danish Nicholas DO [Primary Care Provider] - 1-2 days Braden Olivera DO [Doctor of Osteopathic Medicine] - 1-2 days Time of Disposition: 15:35
[2019-02-01] MEDS ORDERED: KETOROLAC 30 MG/ML 1 ML VIAL IVP STA (13:09)
[2019-02-01] MEDS ORDERED: ONDANSETRON 4 MG/2 ML VIAL IVP STA (13:09)
[2019-02-01] MEDS ORDERED: SODIUM CHLORIDE 0.9% 1,000 ML IV STA (13:09)
[2019-02-01] MEDS ORDERED: FAMOTIDINE 20 MG/2 ML VIAL IV STA (13:09)
[2019-02-01 13:41] LABS: Appearance,Urine Clear (Clear); Bilirubin,Urine Negative (Negative); Blood,Urine Negative (Negative); Color,Urine Light Yellow; Glucose,Urine (UA) Negative (Negative); Ketones,Urine Negative (Negative); Leukocyte Esterase,Urine Negative (Negative); Nitrite,Urine Negative (Negative); Protein,Urine Negative (Negative); Specific Gravity,Urine 1.005 (1.001-1.035); Urobilinogen,Urine <2.0 mg/dL (<2.0)
[2019-02-01 13:50] LABS: ALT 22 U/L (9-52); AST 20 U/L (14-36); African American GFR (CKD) >90 (>60 ml/min/1.73 sqM); Albumin 4.1 g/dL (3.5-5.0); Alkaline Phosphatase 71 U/L (38-126); Amylase 46 U/L (30-110); Anion Gap 6 mmol/L; Blood Urea Nitrogen 12 mg/dL (7-17); Calcium 9.6 mg/dL (8.4-10.2); Carbon Dioxide 26 mmol/L (22-30); Chloride 106 mmol/L (98-107); Glucose 91 mg/dL (74-99); Potassium 4.7 mmol/L (3.5-5.1); Sodium 138 mmol/L (137-145); Total Bilirubin 0.5 mg/dL (0.2-1.3); Total Protein 7.1 g/dL (6.3-8.2)
[2019-02-01] MEDS ORDERED: HYDROcodone/APAP 5-325MG 1 EACH TAB PO STA (14:01)
[2019-02-01] MEDS ORDERED: METOCLOPRAMIDE 5 MG/ML 2 ML VIAL IVP STA (14:01)
[2019-02-01 14:06] LABS: Anisocytosis Slight; Basophils # (A) 0.2 k/uL (0-0.2); Basophils % (A) 2 %; Eosinophils # (A) 0.3 k/uL (0-0.7); Eosinophils % (A) 3 %; HGB 14.5 gm/dL (11.4-16.0); Lymphocytes # (A) 2.1 k/uL (1.0-4.8); Lymphocytes % (A) 20 %; MCH 31.8 pg (25.0-35.0); Mean Platelet Volume 9.2; Monocytes # (A) 0.8 k/uL (0-1.0); Monocytes % (A) 7 %; Neutrophils # (A) 6.9 k/uL (1.3-7.7); Neutrophils % (A) 66 %; Platelet Count 281 k/uL (150-450); RBC 4.57 m/uL (3.80-5.40); RDW 16.4 % (11.5-15.5); WBC 10.5 k/uL (3.8-10.6)
[2019-02-01 14:07] LABS: MCV 96.3 fL (80.0-100.0)
--- NOTE | 2019-02-01 15:16 | CT ---
EXAMINATION TYPE: CT abdomen pelvis w con DATE OF EXAM: 02/01/2019 COMPARISON: CT abdomen/pelvis with contrast 12/03/2018 HISTORY: Ventral hernia. CT DLP: 1852.4 mGycm Automated exposure control for dose reduction was used. TECHNIQUE: Helical acquisition of images was performed from the lung bases through the pelvis. CONTRAST: Performed without Oral Contrast and with IV Contrast, patient injected with 100 mL of Isovue 300. FINDINGS: LUNG BASES: Clear. LIVER/GB: Diffusely low attenuated hepatic parenchyma compatible with steatosis. This finding limits evaluation for hepatic masses. No calcified gallstones. No intra or extrahepatic biliary ductal dilat ation. PANCREAS: No significant abnormality is seen. SPLEEN: Surgically absent. ADRENALS: No significant abnormality is seen. KIDNEYS: Symmetric enhancement without hydronephrosis. FREE AIR: No free air is visualized. RETROPERITONEAL ADENOPATHY: None visualized. REPRODUCTIVE ORGANS: Enlarged heterogenous uterus compatible with underlying fibroids. Cystic and gini id left ovarian mass without significant interval change. URINARY BLADDER: No significant abnormality is seen. BOWEL: No dilated bowel. Morphologically normal appendix. OTHER: Ventral supraumbilical abdominal hernia containing transverse colon and mesenteric fat is unch anged measuring 7.2 cm wide. Additional left paracentral and central supraumbilical hernias containin g fat with small bowel loop protruding into the origin of the central supraumbilical hernia. Fat fill ed periumbilical hernia unchanged. OSSEOUS STRUCTURES: No significant abnormality is seen. IMPRESSION: 1. Stable exam from CT abdomen/pelvis performed 12/03/2018. 2. Unchanged ventral abdominal hernia containing large bowel without evidence of bowel obstruction. C linical correlation for reducibility recommended. Additional ventral and periumbilical hernias contai socorro fat are unchanged. 3. Enlarged lobulated uterus, commonly related to underlying uterine fibroids. Stable CT appearance o f left adnexal mass; MRI pelvis is recommended if not already performed. 4. Hepatic steatosis.
[2019-02-01] MEDS ORDERED: ACET/COD 300 MG/30 MG STARTER PACK 6 TAB BTL PO STA (15:30)
[2019-02-01 16:01] VITALS: BP 135/78; PULSE 61; TEMP 98.7
== END 2019-02-01 16:06 | disposition home or self-care (01) ==
LOC: EC 12:46
DX: K43.9 Ventral hernia without obstruction or gangrene (principal); R11.0 Nausea; I25.2 Old myocardial infarction; F32.9 Major depressive disorder, single episode, unspecified; E07.9 Disorder of thyroid, unspecified; F17.200 Nicotine dependence, unspecified, uncomplicated; Z79.890 Hormone replacement therapy; Z79.82 Long term (current) use of aspirin; Z79.899 Other long term (current) drug therapy; Z88.0 Allergy status to penicillin; Z88.1 Allergy status to other antibiotic agents; Z88.2 Allergy status to sulfonamides
CPT/HCPCS: 36415; 80053; 82150; 83605; 83690; 85025; 81003; 74177; 99284; 96374; 96375 ×3; 96361 ×3; J2765; J2405; J1885; Q9967

== ENCOUNTER 2019-02-25 15:30 | Emergency (ER) | payer OTHER ==
[2019-02-25 15:59] VITALS: TEMP 99
[2019-02-25] MEDS ORDERED: CEPHALEXIN 500MG STARTER PACK 4 CAP BTL PO STA (16:26)
[2019-02-25] MEDS ORDERED: CEPHALEXIN 500 MG CAP PO STA (16:26)
[2019-02-25] MEDS ORDERED: HYDROcodone/APAP 5-325MG 1 EACH TAB PO STA (16:31)
--- NOTE | 2019-02-25 16:40 | XR ---
EXAMINATION TYPE: XR soft tissue neck DATE OF EXAM: 02/25/2019 COMPARISON: NONE HISTORY: Throat pain TECHNIQUE: 2 views FINDINGS: Epiglottis is normal. Subglottic trachea appears normal. Prevertebral soft tissues appear n ormal. Tonsils and adenoids appear normal. There is some calcified thyroid cartilage. IMPRESSION: Negative cervical soft tissue exam.
--- NOTE | 2019-02-25 17:19 | ED ---
General Adult HPI - General Chief complaint: ENT Stated complaint: ear/throat pain Time Seen by Provider: 02/25/19 16:01 Source: patient, RN notes reviewed, old records reviewed Mode of arrival: ambulatory Limitations: no limitations - History of Present Illness Initial comments: 48-year-old female patient past medical history most significant for a spleen isn't presents ED for chief complaint of painful left anterior cervical lymph node. Has been ongoing for approximately 3 days. Reports a mild amount of left otalgia as well. Denies cough congestion. Denies any other complaints. Denies any fevers at home. Systemic: Pt denies fatigue, fever/chills, rash. Pt denies weakness, night sweats, weight loss. Neuro: Pt denies headache, visual disturbances, syncope or pre-syncope. HEENT: Pt denies ocular discharge or irritation, rhinorrhea, pharyngitis. Cardiopulmonary: Pt denies chest pain, SOB, heart palpitations, dyspnea on exertion. Abdominal/GI: Pt denies abdominal pain, n/v/d. : Pt denies dysuria, burning w/ urination, frequency/urgency. Denies new onset urinary or bowel incontinence. MSK: Pt denies myalgia, loss of strength or function in extremities. Neuro: Pt denies new onset weakness, paresthesias. - Related Data Home Medications Medication Instructions Recorded Confirmed Escitalopram [Lexapro] 10 mg PO HS 08/25/17 12/03/18 ALPRAZolam [Xanax XR] 1 mg PO DAILY 09/09/17 12/03/18 Levothyroxine Sodium 100 mcg PO DAILY 02/12/18 12/03/18 Acetaminophen Tab [Tylenol Tab] 1,000 mg PO Q6HR PRN 08/19/18 12/03/18 Aspirin EC [Ecotrin] 325 mg PO HS 08/19/18 12/03/18 Ferrous Sulfate [Feosol] 325 mg PO HS 12/03/18 12/03/18 Previous Rx's Medication Instructions Recorded Metoclopramide [Reglan] 10 mg PO ACHS #20 tab 12/03/18 Promethazine [Phenergan] 25 mg PO Q6HR #40 tablet 12/16/18 Scopolamine 1.5MG/72Hr Patch 1 patch TRANSDERM Q72H #7 patch 12/16/18 [TransDerm Scop] Metoclopramide [Reglan] 10 mg PO TID PRN #15 tab 02/01/19 Cephalexin [Keflex] 500 mg PO Q6HR 7 Days #40 cap 02/25/19 Allergies Allergy/AdvReac Type Severity Reaction Status Date / Time Penicillins Allergy Rash/Hives Verified 02/25/19 15:59 sulfamethoxazole AdvReac Hallucinati Verified 02/25/19 15:59 [From Bactrim] ons trimethoprim [From Bactrim] AdvReac Hallucinati Verified 02/25/19 15:59 ons Review of Systems ROS Statement: Those systems with pertinent positive or pertinent negative responses have been documented in the HPI. ROS Other: All systems not noted in ROS Statement are negative. Past Medical History Past Medical History: Myocardial Infarction ([place]), Thyroid Disorder Additional Past Medical History / Comment(s): ovarian cyst and mass on uterus (08/2017), spontaneous spleen rupture, pancreatitis, hernia History of Any Multi-Drug Resistant Organisms: None Reported Past Surgical History: No Surgical Hx Reported Additional Past Surgical History / Comment(s): spleenectomy Past Anesthesia/Blood Transfusion Reactions: No Reported Reaction Past Psychological History: Depression Smoking Status: Current every day smoker Past Alcohol Use History: Rare Past Drug Use History: None Reported - Past Family History Mother Family Medical History: Hypertension, Rheumatoid Arthritis ([place]) Father Family Medical History: COPD, Myocardial Infarction ([place]) General Exam - General Exam Comments Initial Comments: Constitutional: NAD, AOX3, Pt has pleasant affect. HEENT: [place]/AT, trachea midline, neck supple, mildly tender left anterior cervical lymphadenopathy. No skin changes. No fluctuance. Posterior pharynx non erythematous, without exudates. External ears appear normal, without discharge. TM pale moore. Mucous membranes moist. Eyes PERRLA, EOM intact. There is no scleral icterus. No pallor noted. Cardiopulmonary: RRR, no murmurs, rubs or gallops, no JVD noted. Lungs CTAB in anterior and posterior shipley. No peripheral edema. Abdominal exam: Abdomen soft and non-distended. Abdomen non-tender to palpation in all 4 quadrants. Bowel sounds active in LLQ. No hepatosplenomegaly. No ecchymosis Neuro: CN II-XII grossly intact. No nuchal rigidity. No raccon eyes, no atwood sign, no hemotympanum. No cervical spinal tenderness. Kernigs and Brudzinski negative. MSK: No posterior calf tenderness bilaterally, homans sign negative bilaterally. Posterior tibialis and radial pulse +2 bilaterally. Sensation intact in upper and lower extremities. Full active ROM in upper and lower extremities, 5/5 stregnth. Limitations: no limitations Course Vital Signs 02/25/19 15:55 Temperature 99.0 F Pulse Rate 78 Respiratory 20 Rate Blood Pressure 161/94 O2 Sat by Pulse 97 Oximetry Medical Decision Making - Medical Decision Making 48-year-old female patient past history significant for a spleen isn't presents to ED for chief complaint of tender left anterior cervical lymphadenopathy. Has been ongoing for approximately 3 days. Patient does have Pneumovax vaccine. Denies any fevers at home. Patient vital signs are stable, afebrile here. Physical exam did confirm left anterior cervical lymphadenopathy which is mildly tender. Did not reveal any other pathology. Stressed importance of close monitoring of symptoms and close follow-up with primary care provider tomorrow patient. She verbalized understanding. Strict return precautions were discussed including any development of fevers. She understands. Patient was treated with Keflex for lymphadenitis and will return to ER if condition worsens. Case discussed with Dr. Kaiser. Disposition Clinical Impression: Lymphadenitis Disposition: HOME SELF-CARE Condition: Stable Instructions (If sedation given, give patient instructions): Adenitis (ED) Additional Instructions: Follow-up with primary care provider first thing tomorrow. Return to ER if symptoms worsen any way including worsening pain, nausea vomiting, fevers, extremity strict return precautions. Tkae Medication as directed. Prescriptions: Cephalexin [Keflex] 500 mg PO Q6HR 7 Days #40 cap Is patient prescribed a controlled substance at d/c from ED?: No Referrals: Danish Nicholas DO [Primary Care Provider] - 1-2 days
[2019-02-25] MEDS ORDERED: ACET/COD 300 MG/30 MG STARTER PACK 6 TAB BTL PO STA (17:26)
[2019-02-25 17:31] VITALS: BP 170/84; PULSE 75; RESP 16
== END 2019-02-25 17:30 | disposition home or self-care (01) ==
LOC: EC 15:30
DX: R59.0 Localized enlarged lymph nodes (principal); H92.02 Otalgia, left ear; I25.2 Old myocardial infarction; E07.9 Disorder of thyroid, unspecified; F32.9 Major depressive disorder, single episode, unspecified; F17.200 Nicotine dependence, unspecified, uncomplicated; Z79.890 Hormone replacement therapy; Z79.82 Long term (current) use of aspirin; Z79.899 Other long term (current) drug therapy; Z88.0 Allergy status to penicillin; Z88.2 Allergy status to sulfonamides
CPT/HCPCS: 70360; 99284

== ENCOUNTER 2019-04-22 14:27 | Emergency (ER) | payer OTHER ==
[2019-04-22] MEDS ORDERED: KETOROLAC 30 MG/ML 1 ML VIAL IVP STA (15:31)
[2019-04-22] MEDS ORDERED: SODIUM CHLORIDE 0.9% 1,000 ML IV STA (15:31)
[2019-04-22] MEDS ORDERED: ONDANSETRON 4 MG/2 ML VIAL IVP STA (15:31)
[2019-04-22] MEDS ORDERED: MORPHINE SULFATE 4 MG/ML SYRINGE IVP STA ×2 (15:57→17:26)
[2019-04-22 16:19] LABS: ALT 15 U/L (4-34); AST 25 U/L (14-36); African American GFR (CKD) >90 (>60 ml/min/1.73 sqM); Albumin 4.1 g/dL (3.5-5.0); Alkaline Phosphatase 70 U/L (38-126); Amylase 40 U/L (30-110); Anion Gap 6 mmol/L; Appearance,Urine Cloudy (Clear); Bilirubin,Urine Negative (Negative); Blood Urea Nitrogen 11 mg/dL (7-17); Blood,Urine Negative (Negative); Calcium 9.7 mg/dL (8.4-10.2); Carbon Dioxide 23 mmol/L (22-30); Chloride 110 mmol/L (98-107); Color,Urine Yellow; Glucose 91 mg/dL (74-99); Glucose,Urine (UA) Negative (Negative); Hyaline Casts,Urine 1 /lpf (0-2); Ketones,Urine Negative (Negative); Leukocyte Esterase,Urine Small (Negative); Mucus,Urine Rare /hpf; Nitrite,Urine Negative (Negative); Non-African American GFR(CKD) >90 (>60 ml/min/1.73 sqM); Potassium 4.8 mmol/L (3.5-5.1); Protein,Urine Negative (Negative); RBC,Urine 1 /hpf (0-5); Sodium 139 mmol/L (137-145); Specific Gravity,Urine 1.016 (1.001-1.035); Squamous Epithelial Cell,Urine 13 /hpf (0-4); Total Bilirubin 0.6 mg/dL (0.2-1.3); Total Protein 6.9 g/dL (6.3-8.2); Urobilinogen,Urine <2.0 mg/dL (<2.0); WBC,Urine 3 /hpf (0-5)
--- NOTE | 2019-04-22 16:41 | XR ---
EXAMINATION TYPE: XR KUB DATE OF EXAM: 04/22/2019 COMPARISON: 12/15/2018 HISTORY: Abdominal pain TECHNIQUE: 2 views upright FINDINGS: There is no sign of intestinal obstruction or pneumoperitoneum. Fecal pattern is normal. Lennie ng bases are clear. There are no pathologic calcifications over the kidneys. There is no sign of a ma ss. IMPRESSION: Nonacute abdomen. No change.
[2019-04-22 16:57] LABS: Basophils # (A) 0.1 k/uL (0-0.2); Basophils % (A) 1 %; Eosinophils # (A) 0.2 k/uL (0-0.7); Eosinophils % (A) 2 %; HCT 44.5 % (34.0-46.0); HGB 14.6 gm/dL (11.4-16.0); Lymphocytes # (A) 1.7 k/uL (1.0-4.8); Lymphocytes % (A) 17 %; MCH 30.7 pg (25.0-35.0); MCHC 32.8 g/dL (31.0-37.0); MCV 93.8 fL (80.0-100.0); Monocytes # (A) 0.7 k/uL (0-1.0); Monocytes % (A) 7 %; Neutrophils % (A) 70 %; Platelet Count 279 k/uL (150-450); RBC 4.74 m/uL (3.80-5.40); RDW 14.7 % (11.5-15.5); WBC 10.1 k/uL (3.8-10.6)
--- NOTE | 2019-04-22 18:18 | CT ---
EXAMINATION TYPE: CT abdomen pelvis w con DATE OF EXAM: 04/22/2019 COMPARISON: 02/01/2019 HISTORY: Abdomen pain x9 days, across front of belly. Hx spleenectomy. CT DLP: 2004 mGycm Automated exposure control for dose reduction was used. CONTRAST: Performed with IV Contrast, patient injected with 100 mL of Isovue 300. Lung bases are clear. There is no pleural effusion. Heart size is normal. There is no pericardial eff usion. There is broad-based large ventral hernia that contains transverse colon. There is no sign of obstruc tion. There is low attenuation in the liver suggestive of some fatty infiltration. There is spleen is absen t. Stomach is intact. The bile ducts are not dilated. There is no pancreatic mass. Gallbladder appear s normal. There is no adrenal mass. Kidneys show satisfactory contrast opacification. There is no hydronephrosi s. There is no evidence of renal mass. There is no retroperitoneal adenopathy. Ureters are not dilate d. There is lobulated enlargement of the uterus with calcification. There is large exophytic fibroid on the uterine fundus that measures 6 cm. There is 4 cm cyst on the left ovary. There is 3 cm cyst on th e right ovary. There is no inguinal hernia. There is no free fluid in the pelvis. There is no ascites or free air. There is no sign of a bowel obstruction. Appendix appears normal. Lennie mbar vertebra have normal spacing and alignment. Posterior elements are intact. Bony pelvis appears i ntact. There is 4 x 2.5 cm paraumbilical hernia that contains omental fat increased compared to old e xam. IMPRESSION: Large ventral hernia contains transverse colon unchanged compared to old exam. Mild fatty infiltratio n of the liver unchanged. Enlarged fibroid uterus. Ovarian cysts. Uterus unchanged. Left ovary and cyst unchanged. New right-si ded ovarian cyst. Subcutaneous edema over the lower lumbar spine unchanged. Periumbilical fat-containing hernia increased.
--- NOTE | 2019-04-22 18:31 | ED ---
Abdominal Pain HPI - General Chief Complaint: Abdominal Pain Stated Complaint: Stomach pain Time Seen by Provider: 04/22/19 14:55 Source: patient Mode of arrival: ambulatory Limitations: no limitations - History of Present Illness Initial Comments: 48-year-old female patient presents to the emergency department today for evaluation of generalized abdominal pain and significant nausea. Patient states she's had symptoms for the last 9 days and symptoms have been worsening. States that she is keeping down minimal food and fluids. Denies any constipation or diarrhea. She denies any vomiting. States she is urinating without difficulty. Denies fever or chills. She does have a known large ventral hernia and a periumbilical hernia. States this pain is different from usual. Patient denies any recent rash, shortness breath, chest pain, back pain, numbness, tingling, dizziness, weakness, hematuria, dysuria, urinary urgency, urinary frequency, h eadache, visual changes, or any other complaints. - Related Data Home Medications Medication Instructions Recorded Confirmed Escitalopram [Lexapro] 10 mg PO HS 08/25/17 12/03/18 ALPRAZolam [Xanax XR] 1 mg PO DAILY 09/09/17 12/03/18 Levothyroxine Sodium 100 mcg PO DAILY 02/12/18 12/03/18 Acetaminophen Tab [Tylenol Tab] 1,000 mg PO Q6HR PRN 08/19/18 12/03/18 Aspirin EC [Ecotrin] 325 mg PO HS 08/19/18 12/03/18 Ferrous Sulfate [Feosol] 325 mg PO HS 12/03/18 12/03/18 Previous Rx's Medication Instructions Recorded Metoclopramide [Reglan] 10 mg PO ACHS #20 tab 12/03/18 Promethazine [Phenergan] 25 mg PO Q6HR #40 tablet 12/16/18 Scopolamine 1.5MG/72Hr Patch 1 patch TRANSDERM Q72H #7 patch 12/16/18 [TransDerm Scop] Metoclopramide [Reglan] 10 mg PO TID PRN #15 tab 02/01/19 Cephalexin [Keflex] 500 mg PO Q6HR 7 Days #40 cap 02/25/19 Famotidine [Pepcid] 20 mg PO HS #30 tablet 04/22/19 Ondansetron [Zofran ODT] 4 mg PO Q8HR PRN #20 tab 04/22/19 Allergies Allergy/AdvReac Type Severity Reaction Status Date / Time Penicillins Allergy Rash/Hives Verified 04/22/19 14:39 amoxicillin AdvReac Rash/Hives Verified 04/22/19 14:39 sulfamethoxazole AdvReac Hallucinati Verified 04/22/19 14:39 [From Bactrim] ons trimethoprim [From Bactrim] AdvReac Hallucinati Verified 04/22/19 14:39 ons Review of Systems ROS Statement: Those systems with pertinent positive or pertinent negative responses have been documented in the HPI. ROS Other: All systems not noted in ROS Statement are negative. Past Medical History Past Medical History: Myocardial Infarction ([place]), Thyroid Disorder Additional Past Medical History / Comment(s): ovarian cyst and mass on uterus (08/2017), spontaneous spleen rupture, pancreatitis, hernia History of Any Multi-Drug Resistant Organisms: None Reported Past Surgical History: No Surgical Hx Reported Additional Past Surgical History / Comment(s): spleenectomy Past Anesthesia/Blood Transfusion Reactions: No Reported Reaction Past Psychological History: Depression Smoking Status: Current every day smoker Past Alcohol Use History: Rare Past Drug Use History: None Reported - Past Family History Mother Family Medical History: Hypertension, Rheumatoid Arthritis ([place]) Father Family Medical History: COPD, Myocardial Infarction ([place]) General Exam Limitations: no limitations General appearance: alert, in no apparent distress ENT exam: Present: normal exam, normal oropharynx, mucous membranes moist Respiratory exam: Present: normal lung sounds bilaterally. Absent: respiratory distress, wheezes, rales, rhonchi, stridor Cardiovascular Exam: Present: regular rate, normal rhythm, normal heart sounds. Absent: systolic murmur, diastolic murmur, rubs, gallop, clicks GI/Abdominal exam: Present: soft, normal bowel sounds, hernia (Mid upper abdomen, periumbilical). Absent: distended, tenderness, guarding, rebound, rigid Neurological exam: Present: alert, oriented X3, CN II-XII intact Psychiatric exam: Present: normal affect, normal mood Skin exam: Present: warm, dry, intact, normal color. Absent: rash Course Vital Signs 04/22/19 14:35 Temperature 98.7 F Pulse Rate 83 Respiratory 16 Rate Blood Pressure 166/79 O2 Sat by Pulse 93 L Oximetry Medical Decision Making - Medical Decision Making 48-year-old female patient presents to the emergency department today for evaluation of generalized abdominal pain starting approximately 9 days ago. She is reporting nausea no vomiting. Labs reviewed and are unremarkable. CT abdomen and pelvis was obtained and showed no acute abnormalities however did redemonstrate a large ventral hernia and a periumbilical fat-containing hernia with no evidence for obstruction. I did discuss findings and results with the patient. Did discuss at this time there is no need for admission or acute surgical intervention so we will discharge to follow-up with her primary care physician for recheck in 1-2 days. She is instructed to follow-up with general surgery for evaluation of her hernia and possible GI follow-up for upper and lower endoscopy. Return parameters were discussed in detail. She verbalizes understanding and agrees with this plan. - Lab Data Result diagrams: 04/22/19 15:36 04/22/19 15:36 Lab Results 04/22/19 04/22/19 04/22/19 Range/Units 15:36 15:36 15:36 WBC 10.1 (3.8-10.6) k/uL RBC 4.74 (3.80-5.40) m/uL Hgb 14.6 (11.4-16.0) gm/dL Hct 44.5 (34.0-46.0) % MCV 93.8 (80.0-100.0) fL MCH 30.7 (25.0-35.0) pg MCHC 32.8 (31.0-37.0) g/dL RDW 14.7 (11.5-15.5) % Plt Count 279 (150-450) k/uL Neutrophils % 70 % Lymphocytes % 17 % Monocytes % 7 % Eosinophils % 2 % Basophils % 1 % Neutrophils # 7.0 (1.3-7.7) k/uL Lymphocytes # 1.7 (1.0-4.8) k/uL Monocytes # 0.7 (0-1.0) k/uL Eosinophils # 0.2 (0-0.7) k/uL Basophils # 0.1 (0-0.2) k/uL Sodium 139 (137-145) mmol/L Potassium 4.8 (3.5-5.1) mmol/L Chloride 110 H (98-107) mmol/L Carbon Dioxide 23 (22-30) mmol/L Anion Gap 6 mmol/L BUN 11 (7-17) mg/dL Creatinine 0.67 (0.52-1.04) mg/dL Est GFR (CKD-EPI)AfAm >90 (>60 ml/min/1.73 sqM) Est GFR (CKD-EPI)NonAf >90 (>60 ml/min/1.73 sqM) Glucose 91 (74-99) mg/dL Plasma Lactic Acid Tanner 0.9 (0.7-2.0) mmol/L Calcium 9.7 (8.4-10.2) mg/dL Total Bilirubin 0.6 (0.2-1.3) mg/dL AST 25 (14-36) U/L ALT 15 (4-34) U/L Alkaline Phosphatase 70 (38-126) U/L Total Protein 6.9 (6.3-8.2) g/dL Albumin 4.1 (3.5-5.0) g/dL Amylase 40 (30-110) U/L Lipase 60 (23-300) U/L Urine Color Urine Appearance (Clear) Urine pH (5.0-8.0) Ur Specific [place] (1.001-1.035) Urine Protein (Negative) Urine Glucose (UA) (Negative) Urine Ketones (Negative) Urine Blood (Negative) Urine Nitrite (Negative) Urine Bilirubin (Negative) Urine Urobilinogen (<2.0) mg/dL Ur Leukocyte Esterase (Negative) Urine RBC (0-5) /hpf Urine WBC (0-5) /hpf Ur Squamous Epith Cells (0-4) /hpf Hyaline Casts (0-2) /lpf Urine Mucus (None) /hpf 04/22/19 Range/Units 15:36 WBC (3.8-10.6) k/uL RBC (3.80-5.40) m/uL Hgb (11.4-16.0) gm/dL Hct (34.0-46.0) % MCV (80.0-100.0) fL MCH (25.0-35.0) pg MCHC (31.0-37.0) g/dL RDW (11.5-15.5) % Plt Count (150-450) k/uL Neutrophils % % Lymphocytes % % Monocytes % % Eosinophils % % Basophils % % Neutrophils # (1.3-7.7) k/uL Lymphocytes # (1.0-4.8) k/uL Monocytes # (0-1.0) k/uL Eosinophils # (0-0.7) k/uL Basophils # (0-0.2) k/uL Sodium (137-145) mmol/L Potassium (3.5-5.1) mmol/L Chloride (98-107) mmol/L Carbon Dioxide (22-30) mmol/L Anion Gap mmol/L BUN (7-17) mg/dL Creatinine (0.52-1.04) mg/dL Est GFR (CKD-EPI)AfAm (>60 ml/min/1.73 sqM) Est GFR (CKD-EPI)NonAf (>60 ml/min/1.73 sqM) Glucose (74-99) mg/dL Plasma Lactic Acid Tanner (0.7-2.0) mmol/L Calcium (8.4-10.2) mg/dL Total Bilirubin (0.2-1.3) mg/dL AST (14-36) U/L ALT (4-34) U/L Alkaline Phosphatase (38-126) U/L Total Protein (6.3-8.2) g/dL Albumin (3.5-5.0) g/dL Amylase (30-110) U/L Lipase (23-300) U/L Urine Color Yellow Urine Appearance Cloudy H (Clear) Urine pH 6.0 (5.0-8.0) Ur Specific [place] 1.016 (1.001-1.035) Urine Protein Negative (Negative) Urine Glucose (UA) Negative (Negative) Urine Ketones Negative (Negative) Urine Blood Negative (Negative) Urine Nitrite Negative (Negative) Urine Bilirubin Negative (Negative) Urine Urobilinogen <2.0 (<2.0) mg/dL Ur Leukocyte Esterase Small H (Negative) Urine RBC 1 (0-5) /hpf Urine WBC 3 (0-5) /hpf Ur Squamous Epith Cells 13 H (0-4) /hpf Hyaline Casts 1 (0-2) /lpf Urine Mucus Rare H (None) /hpf Disposition Clinical Impression: Abdominal pain, Nausea Disposition: HOME SELF-CARE Condition: Good Instructions (If sedation given, give patient instructions): Nausea and Vomiting in (ED), Abdominal Pain (ED) Additional Instructions: Follow bland diet. Take medications as directed. Follow-up with your primary care physician for recheck in 1-2 days. Considered seeing a GI specialist for colonoscopy or upper endoscopy scope. When has been listed below 40. Return to the emergency department for any new, worsening, or concerning symptoms. Prescriptions: Famotidine [Pepcid] 20 mg PO HS #30 tablet Ondansetron [Zofran ODT] 4 mg PO Q8HR PRN #20 tab PRN Reason: Nausea Is patient prescribed a controlled substance at d/c from ED?: No Referrals: Danish Nichloas DO [Primary Care Provider] - 1-2 days Mitul Yanez MD [STAFF PHYSICIAN] - 1-2 days Time of Disposition: 19:10
[2019-04-22 19:22] VITALS: BP 155/77; PULSE 78; RESP 20; TEMP 98.4
== END 2019-04-22 19:22 | disposition home or self-care (01) ==
LOC: EC 14:27
DX: R10.84 Generalized abdominal pain (principal); R11.0 Nausea; I25.2 Old myocardial infarction; F32.9 Major depressive disorder, single episode, unspecified; E07.9 Disorder of thyroid, unspecified; F17.200 Nicotine dependence, unspecified, uncomplicated; Z79.890 Hormone replacement therapy; Z79.82 Long term (current) use of aspirin; Z79.899 Other long term (current) drug therapy; Z88.0 Allergy status to penicillin; Z88.1 Allergy status to other antibiotic agents; Z88.2 Allergy status to sulfonamides
CPT/HCPCS: 36415; 80053; 82150; 83605; 83690; 85025; 81001; 74018; 74177; 99284; 96374; 96375 ×2; 96361 ×3; J2270; J2405; Q9967

== ENCOUNTER 2019-06-30 14:56 | Emergency (ER) | payer BC ==
[2019-06-30 15:00] VITALS: BP 159/83; PULSE 66; RESP 18; TEMP 98.1
[2019-06-30] MEDS ORDERED: MORPHINE SULFATE 4 MG/ML SYRINGE IM STA (15:26)
[2019-06-30] MEDS ORDERED: ORPHENADRINE 30 MG/ML 2 ML VIAL IM STA (15:26)
[2019-06-30] MEDS ORDERED: KETOROLAC 60 MG/2 ML VIAL IM STA (15:26)
--- NOTE | 2019-06-30 15:28 | ED ---
Back Pain HPI - General Chief Complaint: Back Pain/Injury Stated Complaint: back pain Time Seen by Provider: 06/30/19 15:03 Source: patient, RN notes reviewed, old records reviewed Limitations: no limitations - History of Present Illness Initial Comments: Patient is a 49-year-old female presents emergency room today with chief complaint of one month of intermittent lumbar back pain with radiation between her lower extremities into the thigh. She reports it seems to be tender over the right paraspinal lumbar sciatic notch. Patient states that she's had no falls or trauma. Denies any saddle anesthesia. She denies any specific back pain. Patient relates that she's had no associated fevers or chills. - Related Data Home Medications Medication Instructions Recorded Confirmed Escitalopram [Lexapro] 10 mg PO HS 08/25/17 12/03/18 ALPRAZolam [Xanax XR] 1 mg PO DAILY 09/09/17 12/03/18 Levothyroxine Sodium 100 mcg PO DAILY 02/12/18 12/03/18 Acetaminophen Tab [Tylenol Tab] 1,000 mg PO Q6HR PRN 08/19/18 12/03/18 Aspirin EC [Ecotrin] 325 mg PO HS 08/19/18 12/03/18 Ferrous Sulfate [Feosol] 325 mg PO HS 12/03/18 12/03/18 Previous Rx's Medication Instructions Recorded Metoclopramide [Reglan] 10 mg PO ACHS #20 tab 12/03/18 Promethazine [Phenergan] 25 mg PO Q6HR #40 tablet 12/16/18 Scopolamine 1.5MG/72Hr Patch 1 patch TRANSDERM Q72H #7 patch 12/16/18 [TransDerm Scop] Metoclopramide [Reglan] 10 mg PO TID PRN #15 tab 02/01/19 Cephalexin [Keflex] 500 mg PO Q6HR 7 Days #40 cap 02/25/19 Famotidine [Pepcid] 20 mg PO HS #30 tablet 04/22/19 Ondansetron [Zofran ODT] 4 mg PO Q8HR PRN #20 tab 04/22/19 Baclofen 10 mg PO TID #12 tab 06/30/19 Ibuprofen 600 mg PO Q6H #20 tab 06/30/19 Allergies Allergy/AdvReac Type Severity Reaction Status Date / Time Penicillins Allergy Rash/Hives Verified 06/30/19 15:00 amoxicillin AdvReac Rash/Hives Verified 06/30/19 15:00 sulfamethoxazole AdvReac Hallucinati Verified 06/30/19 15:00 [From Bactrim] ons trimethoprim [From Bactrim] AdvReac Hallucinati Verified 06/30/19 15:00 ons Review of Systems ROS Statement: Those systems with pertinent positive or pertinent negative responses have been documented in the HPI. ROS Other: All systems not noted in ROS Statement are negative. Past Medical History Past Medical History: Myocardial Infarction ([place]), Thyroid Disorder Additional Past Medical History / Comment(s): ovarian cyst and mass on uterus (08/2017), spontaneous spleen rupture, pancreatitis, hernia History of Any Multi-Drug Resistant Organisms: None Reported Past Surgical History: No Surgical Hx Reported Additional Past Surgical History / Comment(s): spleenectomy, D&C Past Anesthesia/Blood Transfusion Reactions: No Reported Reaction Past Psychological History: Depression Smoking Status: Current every day smoker Past Alcohol Use History: Rare Past Drug Use History: None Reported - Past Family History Mother Family Medical History: Hypertension, Rheumatoid Arthritis ([place]) Father Family Medical History: COPD, Myocardial Infarction ([place]) General Exam - General Exam Comments Initial Comments: Alert and oriented 49-year-old female. No significant distress. Limitations: no limitations General appearance: alert, in no apparent distress Head exam: Present: atraumatic, normocephalic, normal inspection Eye exam: Present: normal appearance, PERRL, EOMI. Absent: scleral icterus, conjunctival injection, periorbital swelling ENT exam: Present: normal exam, mucous membranes moist Neck exam: Present: normal inspection. Absent: tenderness, meningismus, lymphadenopathy Respiratory exam: Present: normal lung sounds bilaterally Cardiovascular Exam: Present: regular rate, normal rhythm, normal heart sounds. Absent: systolic murmur, diastolic murmur, rubs, gallop, clicks GI/Abdominal exam: Present: soft, normal bowel sounds. Absent: distended, tenderness, guarding, rebound, rigid Extremities exam: Present: normal inspection, full ROM, normal capillary refill, other. Absent: tenderness, pedal edema, joint swelling, calf tenderness Back exam: Present: normal inspection, tenderness (No tenderness over the right sciatic notch.) Neurological exam: Present: alert, oriented X3, CN II-XII intact Psychiatric exam: Present: normal affect, normal mood Skin exam: Present: warm, dry, intact, normal color. Absent: rash Course Vital Signs 06/30/19 14:57 Temperature 98.1 F Pulse Rate 66 Respiratory 18 Rate Blood Pressure 159/83 O2 Sat by Pulse 98 Oximetry Medical Decision Making - Medical Decision Making This patient's a pleasant 49-year-old female presents emergency department today with intermittent lower back pain with radiation down bilateral lower extremities to the thigh with abnormal sensation from time to time for the past month. She has no saddle anesthesias. Denies any specific fall or trauma. Patient's lumbar spine x-ray shows evidence of past arthropathy. Patient was given IM pain medication does report some relief. I discussed this time related to sciatic nerve inflammation and will be discharged with anti-inflammatory medication, muscle relaxers and a short course of pain medication. I discussed return parameters and PCP follow-up. All questions were answered return parameters were discussed. 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 No vertebral compression collapse or malalignment. Disposition Clinical Impression: Spasm of muscle of lower back, Sciatica neuralgia Disposition: HOME SELF-CARE Condition: Good Instructions (If sedation given, give patient instructions): Sciatica (ED), Lower Back Exercises (ED) Additional Instructions: Patient is advised to take the medications as prescribed. Recommended close follow-up with your primary care physician. Also can follow-up with orthopedic economic specialist for further evaluation necessary. Recommended dosing medication as prescribed. Return to the emergency department if any alarming signs or symptoms occur. Prescriptions: Baclofen 10 mg PO TID #12 tab Ibuprofen 600 mg PO Q6H #20 tab Is patient prescribed a controlled substance at d/c from ED?: No Referrals: Danish Nicholas DO [Primary Care Provider] - 1-2 days Time of Disposition: 16:20
--- NOTE | 2019-06-30 16:08 | XR ---
EXAMINATION TYPE: XR lumbar spine 2 or 3V DATE OF EXAM: 06/30/2019 Comparison: None Clinical History: 49-year-old female with pain pain Findings: 5 lumbar type vertebral bodies. Facet arthropathy mid to lower lumbar spine. Scattered mild endplate spondylosis. Vertebral body heights and disc interspaces are relatively maintained. Impression: Facet arthropathy mid to lower lumbar spine. No vertebral compression collapse or malalignment.
[2019-06-30] MEDS ORDERED: ACET/COD 300 MG/30 MG STARTER PACK 6 TAB BTL PO STA (16:21)
== END 2019-06-30 16:50 | disposition home or self-care (01) ==
LOC: EC 14:56
DX: M62.830 Muscle spasm of back (principal); M54.40 Lumbago with sciatica, unspecified side; M47.816 Spondylosis without myelopathy or radiculopathy, lumbar region; F32.9 Major depressive disorder, single episode, unspecified; I25.2 Old myocardial infarction; E07.9 Disorder of thyroid, unspecified; F17.200 Nicotine dependence, unspecified, uncomplicated; Z79.82 Long term (current) use of aspirin; Z79.899 Other long term (current) drug therapy; Z79.890 Hormone replacement therapy; Z88.0 Allergy status to penicillin; Z88.2 Allergy status to sulfonamides; Z88.1 Allergy status to other antibiotic agents
CPT/HCPCS: 99284; 96372 ×3; 72100; J2270; J2360; J1885

== ENCOUNTER → 2021-09-28 | Outpatient (CLI) | payer BC ==
[2021-09-28 23:04] LABS: ALT 71 U/L (8-44); AST 61 U/L (13-35); African American GFR (CKD) 98.2 (60.0-200.0); Albumin 4.2 g/dL (3.8-4.9); Albumin/Globulin Ratio 1.75 (1.60-3.17); Alkaline Phosphatase 100 U/L (41-126); Blood Urea Nitrogen 10.4 mg/dL (9.0-27.0); Calcium 9.6 mg/dL (8.7-10.3); Carbon Dioxide 28.3 mmol/L (20.0-27.5); Chloride 102 mmol/L (96-109); Chol/HDL Ratio 6.24 Ratio; Globulin 2.4 g/dL (1.6-3.3); Glucose 98 mg/dL (70-110); LDL Cholesterol,Calculated 177.8 mg/dL (0.0-131.0); Non-African American GFR(CKD) 84.8 (60.0-200.0); Potassium 4.9 mmol/L (3.5-5.5); Sodium 140 mmol/L (135-145); Total Protein 6.6 g/dL (6.2-8.2)
[2021-09-28 23:11] LABS: Basophils # (A) 0.08 X 10*3/uL (0.00-0.10); Basophils % (A) 0.9 %; Eosinophils # (A) 0.22 X 10*3/uL (0.04-0.35); Eosinophils % (A) 2.4 %; HCT 50.2 % (37.2-46.3); HGB 16.9 g/dL (12.0-15.0); Immature Grans, Automated 0.2 %; Lymphocytes # (A) 2.69 X 10*3/uL (0.90-5.00); Lymphocytes % (A) 29.1 %; MCH 34.1 pg (27.0-32.0); MCHC 33.7 g/dL (32.0-37.0); MCV 101.2 fL (80.0-97.0); Mean Platelet Volume 13.7 fL (9.5-12.2); Monocytes # (A) 0.84 X 10*3/uL (0.20-1.00); Monocytes % (A) 9.1 %; NRBC Per 100 WBC 0 /100 WBCS (0.0-0.0); Neutrophils # (A) 5.39 X 10*3/uL (1.80-7.70); Neutrophils % (A) 58.3 %; Platelet Count 209 X 10*3/uL (140-440); RBC 4.96 X 10*6/uL (4.10-5.20); RDW 14.6 % (11.5-14.5); WBC 9.24 X 10*3/uL (4.50-10.00)
--- NOTE | 2021-09-29 08:42 | XR ---
EXAMINATION TYPE: XR chest 2V DATE OF EXAM: 09/28/2021 COMPARISON: 07/29/2018 TECHNIQUE: PA and lateral views submitted. HISTORY: Shortness of breath FINDINGS: The lungs are clear and there is no pneumothorax, pleural effusion, or focal pneumonia. Heart size enlarged. There is inflation hypertrophic and degenerative changes spine. 7 mm nodule left upper lobe Coarse interstitium. IMPRESSION: 1. Cardiomegaly correlate for COPD. 2. 7 mm nodule left upper lobe recommend follow-up CT chest 3. Chronic interstitial lung disease or interstitial pneumonitis in the differential diagnosis correl ate clinically.
== END | disposition home or self-care (01) ==
LOC: LABWHC1 13:13
PROVIDERS: ATTEND Family Medicine
DX: Z00.00 Encounter for general adult medical examination without abnormal findings (principal); R73.9 Hyperglycemia, unspecified; M76.62 Achilles tendinitis, left leg; E03.9 Hypothyroidism, unspecified
CPT/HCPCS: 36415; 71046; 80053; 80061; 82306; 83036; 84439; 84443; 85025; 85379; 86769